=== PATIENT | female | born 1945 | race Caucasian/White ===

== ENCOUNTER 2016-10-24 03:22 | Inpatient (IN) | payer MEDICARE ==
[2016-10-24] MEDS ORDERED: Promethazine HCl 25 MG/ML VIAL ONE (03:31)
[2016-10-24] MEDS ORDERED: Ondansetron HCl/PF 4 MG/2 ML Vial IVP PRN ×3 (05:10→22:12)
[2016-10-24] MEDS ORDERED: Ondansetron ODT 4 MG TAB SL PRN (05:10)
[2016-10-24] MEDS: Sodium Chloride 0.9% 1,000 ML IV SCH ×5 (06:11→23:24)
[2016-10-24] MEDS ORDERED: Morphine Sulfate 2 MG/ML SYRINGE SLOW IVP PRN ×2 (11:26→18:33)
[2016-10-24] MEDS ORDERED: Insulin Regular 300 UNITS/3 ML VIAL SC PRN ×2 (13:10→22:35)
[2016-10-24] MEDS ORDERED: Dextrose 50% Abboject 50 ML SYRINGE IVP PRN (13:10)
[2016-10-24] MEDS ORDERED: Dextrose 5% in Water 1,000 ML IV PRN ×2 (13:10→22:35)
--- NOTE | 2016-10-24 15:27 | HP ---
DATE OF ADMISSION: 10/24/2016 CHIEF COMPLAINT: Abdominal pain, nausea, and vomiting. HISTORY OF PRESENT ILLNESS: Patient is a 71-year-old obese white female. She gives a history of a colon perforation in the (sounds like diverticular perforation), for which she underwent left hemicolectomy. She subsequently has had at least three bowel obstructions. First two of these were treated nonoperatively, but she is required at least one exploratory laparotomy for lysis of adhesi ons. She has also had repair of a ventral and incisional hernia with mesh and subsequently had prob lems with mesh exposure and infection and required another laparotomy for mesh removal. She has had a hernia since her most recent surgery and she does not recall when this was. She developed abdominal pain with nausea and vomiting about 24 hours ago. She had several episodes of vomiting. She presented to the emergency room in [place], late last night. CT scan was obtaine d that revealing findings consistent with small-bowel obstruction. She was transferred to this [facility] and admitted to my service. Nasogastric tube was placed. I am uncertain what volume of the contents was removed. She has had debbie perez out of the NG tube since been admitted to the floor. She continues to complain of abdomi nal pain. PAST MEDICAL HISTORY: 1. Hypertension. 2. Hypercholesterolemia. 3. Diabetes mellitus. 4. Morbid obesity. 5. Degenerative joint disease. PAST SURGICAL HISTORY: 1. Exploratory laparotomy for perforated diverticulitis. 2. Exploratory laparotomy for lysis of adhesions related to bowel obstruction. 3. Mesh repair of ventral incisional hernia. 4. Mesh removal for wound infection. 5. Bilateral total knee replacement performed in May of this year. MEDICATIONS: Includes Lyrica, Lasix, Actoplus metformin, TriCor, lisinopril, atorvastatin, tramadol , Myrbetriq, iron, vitamins. ALLERGIES: No known drug allergies. PERSONAL AND SOCIAL HISTORY: She is , although her is not present at bedside current ly. She has 3 children. She has lived in [place] for the past 3 weeks and moved here just recentl y from a town near [place]. She denies tobacco or alcohol use. She does not have a primary care physician locally yet. REVIEW OF SYSTEMS: Ten-system review is otherwise negative. She denies any cardiac or pulmonary pr oblems. She is uncertain when her last bowel movement was. FAMILY HISTORY: Noncontributory. PHYSICAL EXAMINATION: VITAL SIGNS: Temperature is 98.3, pulse is between 89 and 101, blood pressure 144/82. GENERAL: She is a well-developed, well-nourished, obese white female resting in bed in moderate dis tress. She notes diffuse discomfort within her abdomen, although she does not appear to be in sever e pain as I am conversing with her. She converses clearly. HEAD, EYES, EARS, NOSE, AND THROAT: Unremarkable. NECK: Supple. LUNGS: Clear to auscultation. CARDIAC: Regular rate and rhythm without murmur. ABDOMEN: Obese. There is palpable ventral hernia at the upper end of a midline abdominal incision. She has diffuse discomfort and is uncomfortable for me to palpate. She does have some tympanitic bowel sounds present. RECTAL: Deferred at this time. EXTREMITIES: Unremarkable. LABORATORY DATA: CBC obtained at about midnight reveals white blood cell count of 10 with an hemogl obin of 11.8 and left shift. Chemistry profile reveals CO2 level slightly low at 22. Electrolytes are otherwise normal. Glucose is slightly elevated at 142 and liver function tests were unremarkabl e. ASSESSMENT: Patient with small-bowel obstruction. Since she has minimal out her NG tube and persis tent discomfort, I would recommend exploratory laparotomy, as this does not appear to be improving w ith conservative management. There is certainly a risk for a closed loop obstruction or a volvulus as a source of her problem. I have discussed the operation in detail with the patient as well as po tential risks. She understands and agrees to proceed with surgery at this time.
[2016-10-24] MEDS ORDERED: ceFOXitin 1 GM VIAL ONE (16:02)
[2016-10-24] MEDS ORDERED: Sodium Chloride 0.9% 100 ML ONE ×2 (16:03→22:25)
[2016-10-24] MEDS ORDERED: Morphine Sulfate 2 MG/ML SYRINGE ONE (16:03)
[2016-10-24] MEDS ORDERED: Moxifloxacin 0.5% Opth Drop 3 ML BOT ONE (16:03)
[2016-10-24] MEDS ORDERED: Bupivacaine/Epinephrine 0.25% 30 ML VIAL ONE (16:20)
[2016-10-24] MEDS ORDERED: Fentanyl 100 MCG/2 ML VIAL ONE (16:34)
[2016-10-24] MEDS ORDERED: PHENYLEPHRINE-NS 100 MCG/ML 10 ML SYRINGE ONE (17:16)
[2016-10-24] MEDS ORDERED: ePHEDrine/0.9% NaCl/PF SYRINGE 50 mg/10 ml ONE (17:16)
[2016-10-24] MEDS ORDERED: Propofol 200 MG/20 ML VIAL ONE (17:16)
[2016-10-24] MEDS ORDERED: Ondansetron HCl/PF 4 MG/2 ML Vial ONE (17:16)
[2016-10-24] MEDS ORDERED: Lidocaine 2% PF 10 ML AMP (For Epidural Use) ONE (17:16)
[2016-10-24] MEDS ORDERED: Glycopyrrolate 0.2 MG/ML 5 ML SYRINGE ONE (17:16)
[2016-10-24] MEDS ORDERED: Succinylcholine Chloride 20 MG/ML 10 ml SYRINGE FS ONE (17:16)
[2016-10-24] MEDS ORDERED: Albumin 5% 500 ML ONE ×2 (17:33→19:55)
[2016-10-24] MEDS ORDERED: Meperidine HCl/PF 25 MG/ML VIAL SLOW IVP PRN (18:33)
[2016-10-24] MEDS ORDERED: Promethazine HCl 25 MG/ML VIAL SLOW IVP PRN (18:33)
[2016-10-24] MEDS ORDERED: Ketorolac Tromethamine 30 MG/ML VIAL IVP PRN (18:33)
[2016-10-24] MEDS ORDERED: Promethazine HCl 25 MG/ML VIAL IM PRN ×3 (18:33→22:35)
[2016-10-24] MEDS ORDERED: HYDROmorphone 2 MG/ML VIAL SLOW IVP PRN (18:33)
[2016-10-24] MEDS ORDERED: Naloxone HCl 0.4 mg/ml Vial IV PRN (22:12)
[2016-10-24] MEDS ORDERED: diphenhydrAMINE HCl 50 MG/ML 1 ML VIAL IM PRN (22:12)
[2016-10-24] MEDS ORDERED: Fentanyl 5000 MCG/250 ML CADD IVPB PRN (22:12)
[2016-10-24] MEDS ORDERED: Zolpidem Tartrate 5 MG TAB PO PRN (22:12)
[2016-10-24] MEDS ORDERED: diphenhydrAMINE HCl 25 MG CAP PO PRN (22:12)
[2016-10-24] MEDS ORDERED: Communication Order-Pharmacy FS SCH (22:15)
[2016-10-24] MEDS ORDERED: Piperacillin/Tazobactam 3.375 GM VIAL ONE (22:17)
[2016-10-24] MEDS ORDERED: Fentanyl 20 MCG/ML 250 ML ONE (22:20)
[2016-10-24] MEDS ORDERED: Dextrose 50% Abboject 50 ML SYRINGE SLOW IVP PRN (22:35)
[2016-10-24] MEDS: Piperacillin/Tazobactam 3.375 GM in Sodium Chloride 0.9% 100 ML IVPB SCH (23:25)
[2016-10-24] MEDS: Famotidine 20 MG TAB PO SCH (23:43)
[2016-10-25] MEDS: Acetaminophen 1,000 MG in Premix Bag 1 BAG IVPB SCH ×4 (00:45→18:23)
[2016-10-25] MEDS: Ketorolac Tromethamine 30 MG/ML VIAL IVP SCH ×2 (00:46→05:58)
[2016-10-25] MEDS: Famotidine/PF 20 mg/2ml Vial SLOW IVP SCH ×3 (01:03→21:37)
[2016-10-25] MEDS: Piperacillin/Tazobactam 3.375 GM in Sodium Chloride 0.9% 100 ML IVPB SCH ×4 (03:27→21:39)
[2016-10-25 04:17] LABS: Anion Gap 12 mmol/L (10-20); BUN (Urea Nitrogen) 26 mg/dL (9.8-20.1); Calc. Creatinine Clearance 73 mL/min (70-130); Carbon Dioxide 20 mmol/L (23-31); Chloride 114 mmol/L (98-107); Estimated GFR-MDRD 43
[2016-10-25 04:25] LABS: Band 21 % (5-11); Hematocrit 29.1 % (36.0-47.0); Neutrophil 66 % (42-75); Red Blood Cell (RBC) Count 2.98 mill/uL (4.20-5.40); White Blood Cell (WBC) Count 2.2 thou/uL (4.8-10.8)
[2016-10-25] MEDS: Enoxaparin Sodium 40 MG/0.4 ML SYRINGE SC SCH (05:57)
[2016-10-25] MEDS: Sodium Chloride 0.9% 1,000 ML IV SCH ×3 (05:59→09:32)
[2016-10-25] MEDS: Famotidine 20 MG TAB PO SCH ×2 (08:38→21:37)
[2016-10-25] MEDS ORDERED: Sodium Chloride 0.45% 1,000 ML IV SCH (09:30)
--- NOTE | 2016-10-25 09:58 | CON ---
DATE OF SERVICE: 10/25/2016 SERVICE: Pulmonary Medicine. REASON FOR CONSULTATION: ICU patient. HISTORY OF PRESENT ILLNESS: Patient is a 71-year-old white female with past medical history signifi cant for abdominal issues. She presented to the hospital with 3-day history of nausea and vomiting. She had no bowel movements. She also was passing no gas. In the Emergency Department, she had fi ndings consistent with a small-bowel obstruction. This was confirmed and ultimately, she was taken back to the operating room overnight. She got tucked into the ICU because of marginal blood pressur es. She currently denies nausea or vomiting. She has had no significant output from the NG tube. She is yet to start eating. Her pain is under adequate control and she will only use p.r.n. fentany l on three occasions overnight with her CARE REP. PAST MEDICAL HISTORY: 1. Hypertension. 2. Dyslipidemia. 3. Type 2 diabetes mellitus. 4. Morbid obesity. 5. Degenerative joint disease. PAST SURGICAL HISTORY: 1. Exploratory laparotomy for perforated diverticulitis. 2. Exploratory laparotomy for lysis of adhesions, related to bowel obstruction x2. 3. Mesh repair of ventral incisional hernia. 4. Mesh removal for wound infection. 5. Bilateral total knee replacement, 05/2016. ALLERGIES: No known drug allergies. MEDICATIONS: List of her inpatient medications was reviewed. Multiple updates were made at this ti wv. FAMILY HISTORY: Noncontributory. SOCIAL HISTORY: She is and has 3 children. She lives in [place] for the past 3 weeks and came here recently from [place]. She denied any alcohol, tobacco or illicit drug use. She has n o exposures to chemicals, dust asbestos or tuberculosis. REVIEW OF SYSTEMS: General, head, ears, eyes, nose, throat, cardiovascular, respiratory, GI, , mu sculoskeletal, neurologic, and skin is negative except as mentioned in the HPI. PHYSICAL EXAMINATION: VITAL SIGNS: Afebrile, pulse 102, blood pressure 111/48, respirations 28, saturation 98% on room ai r. GENERAL: The patient is awake, alert, in no apparent distress. LUNGS: Excellent air entry. I do not appreciate prolonged expiratory phase, wheezing, rhonchi or c rackles. HEART: Tachycardic. Regular. ABDOMEN: Soft. Tenderness to palpation is present throughout. There is no rebound or guarding pre sently. Her bowel sounds are hypoactive. GENITOURINARY: Quick catheter in place. NEUROLOGIC: Grossly nonfocal. LABORATORY DATA: WBC 2.2, hemoglobin 9.7, and platelets 238,000. Band count has increased to 21%. Creatinine is up trending to 1.23, BUN 26. Potassium 3.2. Basic metabolic profile is otherwise un remarkable. Urinalysis is unremarkable. Peritoneal fluid is growing gram negative carlos. Urine stra ight catheter was growing E. coli. ASSESSMENT: 1. Severe sepsis. 2. Gross peritonitis. 3. Urinary tract infection. 4. Small bowel obstruction, status post exploratory laparotomy and excision of small portion of the bowel. PLAN: Will continue empiric antibiotics for the time being, which cover most gut raji with Zosyn. I will give her 2 liters of fluid. If this perks up her blood pressure and she starts making urine output, she will be a candidate for transition out of the ICU to the regular floor. Pulmonary or C ritical Care will continue to follow for the next 1-2 days if she remains in this location.
[2016-10-25] MEDS: Potassium Chloride 20 MEQ in Lactated Ringer's 1,000 ML IVPB SCH ×2 (11:01→21:39)
--- NOTE | 2016-10-25 14:04 | PRG ---
DATE OF SERVICE: 10/25/2016 HISTORY OF PRESENT ILLNESS: Ms. Walton is postoperative day #1 from a lengthy exploratory laparotom y and treatment of a bowel obstruction. She unfortunately had compromised bowel that was very diste nded, chronically obstructed, and severely adhesed. Attempts at mobilizing the bowel away from her right lateral abdomen (where she had a prior colectomy) resulting in several enterotomies with devas cularization of bowel. I had resected close to 150 cm of injured small bowel. Nasogastric tube re jamie in place. She has been in the ICU for close observation. She complains of appropriate abdominal pain. She is apparently not doing very much for herself yet. PHYSICAL EXAMINATION: VITAL SIGNS: She has been afebrile, pulse is in the 100s, ranging from 101 up to 111. Blood pressu re is 116/49. She has received albumin boluses overnight and IV fluid boluses today. Her urine out put overnight was 205 mL. She currently seems to be urinating about 30-50 mL per hour. LUNGS: Clear to auscultation. CARDIAC: Regular rate and rhythm. ABDOMEN: Obese and appropriately diffusely tender. Dressing is still intact. Drain is in place an d is draining serosanguineous fluid from her subcutaneous space. There are no bowel sounds audible. LABORATORY STUDIES: Her CBC reveals white blood cell count of 2.2 with hemoglobin of 9.7 and platel et count of 238. Her electrolytes revealed that she has hypokalemia with potassium of 3.2. Her CO2 level is low at 20, BUN and creatinine are both slightly elevated at 26 and 1.23. ASSESSMENT: The patient who is overall doing well following a lengthy surgery for dense adhesive di sease. She also had numerous incisional hernias in her midline incision and I repaired her fascia a s well as I could without mesh. PLAN: For now, I would continue nasogastric tube. IV fluids will be optimized. I believe she woul d be better suited to treatment with lactated Ringer's with potassium to correct her hypokalemia and her acidosis. We will consult physical therapy for progressive mobilization. She will continue on IV antibiotics, receiving Zosyn. I would recommend keeping her here in the Intensive Care Unit for at least 1 more day and if all seems to be stable tomorrow, then we could probably transition her t o the floor tomorrow.
--- NOTE | 2016-10-25 14:12 | RAD ---
SINGLE VIEW OF THE CHEST: COMPARISON: None. HISTORY: Central line placement. FINDINGS: A single view of the chest shows a normal-size cardiomediastinal silhouette. There is a left subcla vian central venous catheter with its tip in the superior vena cava. An NG tube is seen in the stom ach. There is no evidence of consolidation, mass, pneumothorax, or pleural effusion. IMPRESSION: No evidence of acute cardiopulmonary disease. POS: [facility]
[2016-10-26] MEDS: Ketorolac Tromethamine 30 MG/ML VIAL IVP SCH ×4 (00:48→17:00)
[2016-10-26] MEDS: Acetaminophen 1,000 MG in Premix Bag 1 BAG IVPB SCH ×4 (00:49→17:00)
[2016-10-26] MEDS: Piperacillin/Tazobactam 3.375 GM in Sodium Chloride 0.9% 100 ML IVPB SCH ×2 (03:54→09:24)
[2016-10-26 04:44] LABS: Anion Gap 13 mmol/L (10-20); BUN (Urea Nitrogen) 27 mg/dL (9.8-20.1); Calc. Creatinine Clearance 75 mL/min (70-130); Calcium 8.3 mg/dL (7.8-10.44); Carbon Dioxide 20 mmol/L (23-31); Chloride 117 mmol/L (98-107); Estimated GFR-MDRD 49
[2016-10-26 05:04] LABS: Band 42 % (5-11); Hematocrit 26.5 % (36.0-47.0); Neutrophil 42 % (42-75); Red Blood Cell (RBC) Count 2.67 mill/uL (4.20-5.40); White Blood Cell (WBC) Count 10.2 thou/uL (4.8-10.8)
[2016-10-26] MEDS: Enoxaparin Sodium 40 MG/0.4 ML SYRINGE SC SCH (06:21)
[2016-10-26] MEDS: Potassium Chloride 20 MEQ in Lactated Ringer's 1,000 ML IVPB SCH (06:47)
--- NOTE | 2016-10-26 08:54 | RAD ---
SINGLE VIEW OF THE CHEST: COMPARISON: 10/24/16. HISTORY: Bandemia status post laparotomy. FINDINGS: A single view of the chest shows a normal-size cardiomediastinal silhouette. The central venous cat heter is unchanged in position. The NG tube is unchanged in position. There is no evidence of cons olidation, mass, or pleural effusion. IMPRESSION: No evidence of acute cardiopulmonary disease. POS: [facility]
[2016-10-26] MEDS: Famotidine/PF 20 mg/2ml Vial SLOW IVP SCH ×2 (09:24→22:33)
[2016-10-26] MEDS: Famotidine 20 MG TAB PO SCH ×2 (09:25→23:15)
[2016-10-26] MEDS: Dextrose 5% in Water 1,000 ML IV SCH (09:26)
--- NOTE | 2016-10-26 12:03 | PRG ---
DATE OF SERVICE: 10/26/2016 SERVICE: Pulmonary Medicine. INTERVAL HISTORY: The patient is doing fine from a cardiovascular and respiratory standpoint. She indicates having significant abdominal discomfort. She wanted to get out of bed into a chair. When she got into chair, she immediately wanted to get back because she feels too weak to be in the andrez r. That being said, she looks fairly strong to me. She denies any current nausea, vomiting, or rigoberto rrhea. PHYSICAL EXAMINATION: VITAL SIGNS: Afebrile, pulse 120, blood pressure 155/72, respirations 24, saturation 99% on room ai r. GENERAL: Patient is awake, alert, no apparent distress. LUNGS: Excellent air entry. There are no dependent crackles, prolonged expiratory phase, wheezing or rhonchi. HEART: Normal rate, regular. ABDOMEN: Soft, nontender, nondistended. Bowel sounds positive. MUSCULOSKELETAL: No cyanosis or clubbing. There is no pitting in the bilateral lower extremities. NEUROLOGIC: Grossly nonfocal. LABORATORY DATA: WBC 10.2. She has been rebound to 42%. Platelets are normal. Hemoglobin is 8.5. Creatinine down trending to 1.09. Sodium is increasing to 143, chloride 117. Basic metabolic pro file is otherwise unremarkable. Enterobacter is growing in the abdominal culture and this thing is pansensitive. Anaerobic cultures are currently pending. IMAGING: Chest x-ray demonstrates low lung volumes. There is a left-sided subclavian central venou s catheter in decent position. The sil angle is a little bit enlarged. Dilated loops of bowel p resent. No evidence of acute cardiopulmonary process. There are increased interstitial markings, a ccentuated by low lung volumes. There is an enteric catheter coursing below the level of the diaphr agm. ASSESSMENT: 1. Severe sepsis. 2. Gross peritonitis. 3. Urinary tract infection. 4. Small bowel obstruction, status post exploratory laparotomy and excision of small portion of sma ll bowel. 5. Hypernatremia. PLAN: We will provide the patient a little bit of free water and keep her total fluids at 120 mL pe r hour. She remains essentially normal volume actually her volume status has improved significantly over the last 24 hours. Urine output has actually started to take up touch. She is clearing her s epsis profile very nicely and I believe the increasing band count represents her body catching up wi th her infectious profile. We will keep her in the ICU for 1 additional day, so we can aggressively mobilize her. Physical therapy will work with her through the day.
[2016-10-26] MEDS: Potassium Chloride 20 MEQ in Lactated Ringer's 1,000 ML IV SCH ×2 (14:09→16:50)
[2016-10-26] MEDS: Piperacillin/Tazobactam 3.375 GM, Admixture Fee 1 EACH in Sodium Chloride 0.9% 100 ML IVPB SCH ×2 (16:49→22:34)
[2016-10-26] MEDS: Ondansetron HCl/PF 4 MG/2 ML Vial IVP PRN (19:38)
--- NOTE | 2016-10-27 00:20 | OP ---
DATE OF PROCEDURE: 10/24/2016 PREOPERATIVE DIAGNOSIS: Small bowel obstruction with persistent abdominal pain. POSTOPERATIVE DIAGNOSES: Small bowel obstruction with persistent abdominal pain with extensive dens e intra-abdominal adhesions, devitalized bowel, and densely obstructed small bowel full of impacted food contents. OPERATIONS PERFORMED: Exploratory laparotomy with small bowel resection (removing 140 cm of small i ntestine), complex incisional hernia repair, central line placement per anesthesia. SURGEON: Cristian Raza M.D. ANESTHESIA: General endotracheal. INDICATIONS: The patient is a morbidly obese 71-year-old white female. She gives a history of a la parotomy for colon resection sometime in the s. Subsequent to this, she had an incisional hernia for which she underwent an open mesh repair. Sometime after that, she had an infection which requir ed mesh removal. At some point related to this, she had a laparotomy and treatment of a bowel obstr uction. The exact time course of these operations is uncertain. She presented to the hospital at t his time with CT evidence of small-bowel obstruction with nausea and vomiting and pain. After nasog astric tube was placed, there was actually a little gastric-content aspiration. She continued to espinoza ve abdominal pain with findings worrisome for peritoneal findings. I therefore recommended proceedi ng with exploratory laparotomy. I was concerned that it could be a closed loop obstruction or volvu nik/devascularization of the bowel. DESCRIPTION OF OPERATION: Informed consent was obtained. The patient was taken to the operating ro om, where general endotracheal anesthesia was obtained with the patient in supine position. Left rincon bclavian central line was placed by Dr. James. Abdomen was prepped with ChloraPrep and draped in bull rile fashion. A midline abdominal incision was created through prior incision and dissection was ca rried down into the wound. There were numerous areas of hernias that were identified from the super ior aspect of the wound down to the inferior aspect of the wound. I carefully dissected down into t he wound, avoiding the injury to any bowel within the hernias. The fascia was elevated on both side s and careful dissection was carried out to free the anterior abdominal wall. This was quite easy o n the patient's left side. The right side; however, was found to be extraordinarily difficult. Wit h meticulous dissection, I was able to identify that she had an extended right hemicolectomy with an anastomosis to the mid transverse colon. I was able to fairly uneventfully dissected the small bow el from the ligament of Treitz about 150 cm distally. At this point, I entered an area of dense adh esions with severely dilated bowel in what I eventually found to be food contents densely impacted i nto the bowel. From the ileocolonic anastomosis, I was able to dissect the bowel about 95 centimete rs proximally into the same contents. It was densely adherent, where her right colon had previously been nonetheless that appeared to be the area of the obstruction. I attempted careful dissection u sing a combination of sharp and blunt dissection. Unfortunately, during the course of dissecting th e right side of her abdomen, I created at least 4 enterotomies. I also devascularized a couple of a reas of bowel during the course of trying to mobilize this. There were numerous areas, where there was essentially no plane between loops of bowel and/or between the loops of bowel in the abdominal w all. When I eventually had mobilized the entire bowel, there was a lengthy segment that was devitalized i n several areas that would require resection and unfortunately these areas of injury to the bowel we re spread out over a long segment of bowel. I felt it was unwise to attempt 4 separate small bowel resections. I therefore, decided to resect about 140 cm of small bowel in continuity. A double sta pled anastomosis was created between the bowel proximal and distal to these areas. This was done wi th a JOHANN-75 stapler. The mesentery was taken down using the impact stapler, oversewing the areas th at were bleeding. The specimen was passed off the field. The mesenteric defect was closed with a r unning suture of 3-0 Vicryl and the anastomosis was buttressed with 3-0 silk sutures. When the enterotomies were created, a foul smelling fluid unfortunately leaked into the abdominal ca vity containing extensive food contents. These fluid contents appeared to be firm nuggets of food t hat I suspected were chewed up nuts, but I could not be certain. I inspected the remainder of the bowel contents and repaired a couple of small serosal defects, but there were certainly no other areas of enterotomy. I then irrigated the abdomen with 8 liters of wa rm saline. I had cleared all fluid contents away from the anterior abdominal wall several times and changed my gloves twice during the course of this procedure to try to minimize the chance of ongoin g recontamination. I then mobilized the fascia from the multiple hernias for several centimeters in each direction. I cleansed the abdominal wall one last time, then removed all instruments from the field, and myself and my engineer third assistant changed gowns and gloves and redraped the abdomen. I placed two sheets of Seprafilm within the abdominal cavity and then closed the fascia with the series of inter rupted sutures of #1 Prolene placed in a [id number] fashion. I used the Pulsavac to irrigate t he subcutaneous space and the skin and surrounding anterior abdominal wall with 3 liters of saline. A #19 round fluted drain was placed within the wound and brought out laterally and inferiorly and s ecured with 3-0 nylon suture. Subcutaneous tissue was approximated with running suture of 3-0 Vicry l and skin edges approximated with skin nehemias. Dry gauze dressing was placed externally. There was about 265 cm of small bowel left at the end of the operation as well as the colon from the mid transverse colon distally. This operation had taken about 4-1/2 hours to complete because of t he severity of the adhesions (which took over 2 hours before I was able to eviscerate the bowel (and the extent of the hernia disease which required significant time for repair). Although she was in stable condition, decided to take her to the intensive care unit postoperatively.
[2016-10-27] MEDS: Acetaminophen 1,000 MG in Premix Bag 1 BAG IVPB SCH (00:39)
[2016-10-27] MEDS: Ketorolac Tromethamine 30 MG/ML VIAL IVP SCH ×4 (00:40→18:39)
[2016-10-27] MEDS: Piperacillin/Tazobactam 3.375 GM, Admixture Fee 1 EACH in Sodium Chloride 0.9% 100 ML IVPB SCH ×4 (05:42→21:32)
[2016-10-27] MEDS: Dextrose 5% in Water 1,000 ML IV SCH (05:44)
[2016-10-27] MEDS: Enoxaparin Sodium 40 MG/0.4 ML SYRINGE SC SCH (05:45)
[2016-10-27] MEDS ORDERED: HYDROcodone/Acetaminophen 7.5/325 mg Tablet PO PRN (06:00)
[2016-10-27 09:09] LABS: Hematocrit 25.6 % (36.0-47.0); Red Blood Cell (RBC) Count 2.61 mill/uL (4.20-5.40); White Blood Cell (WBC) Count 11.4 thou/uL (4.8-10.8)
[2016-10-27 09:33] LABS: Anion Gap 12 mmol/L (10-20); BUN (Urea Nitrogen) 30 mg/dL (9.8-20.1); Calc. Creatinine Clearance 89 mL/min (70-130); Calcium 8.8 mg/dL (7.8-10.44); Carbon Dioxide 22 mmol/L (23-31); Chloride 115 mmol/L (98-107); Estimated GFR-MDRD 58
[2016-10-27 09:44] LABS: Band 32 % (5-11); Neutrophil 49 % (42-75); Polychromasia SLIGHT = 2-3 cells (100X) (0-2/hpf); Vacuoles SLIGHT
[2016-10-27] MEDS: Famotidine/PF 20 mg/2ml Vial SLOW IVP SCH ×2 (09:46→20:59)
[2016-10-27] MEDS: Famotidine 20 MG TAB PO SCH ×2 (09:47→20:53)
[2016-10-27] MEDS: Potassium Chloride 20 MEQ in Lactated Ringer's 1,000 ML IV SCH (15:17)
--- NOTE | 2016-10-27 22:52 | PRG ---
DATE OF SERVICE: 10/27/2016 SERVICE: Pulmonary Medicine. INTERVAL HISTORY: The patient is doing great from a respiratory standpoint. She continues to have persistent abdominal discomfort. She did not sleep at all last night. This morning, she is a littl e bit more lethargic, but wakes up and is alert. PHYSICAL EXAMINATION: VITAL SIGNS: Afebrile, pulse 101, blood pressure 143/70, respirations 26, saturation 99% on 2 liter s nasal cannula. HEENT: Normocephalic, atraumatic. Sclerae are white, conjunctivae pink. Oral and nasal mucosa is moist without lesions. LUNGS: Decreased air entry with no prolonged expiratory phase. I do not appreciate any wheezing. No crackles are present. HEART: Normal rate, regular. ABDOMEN: Soft. Tender to palpation throughout with a little bit of rebound. No guarding. Bowel s ounds are hypoactive. GENITOURINARY: Quick catheter in place. NEUROLOGIC: Grossly nonfocal. LABORATORY DATA: WBC 11.4, hemoglobin 8.2 and stable. Platelets 242,000. Band count is decreasing to 32%. Basic metabolic profile is essentially unremarkable. The sodium and chloride are both gen tly improving. Bicarbonate is also improved. Bacterial culture from the peritoneal fluid is growin g multiple organisms including Clostridium perfringens, nonhemolytic Streptococcus, lactobacillus, E nterobacter aerogenes: ASSESSMENT: 1. Severe sepsis. 2. Gross peritonitis, improving. 3. Urinary tract infection. 4. Small-bowel obstruction, status post exploratory laparotomy and excision small portion of small bowel. 5. Hypernatremia, improving. PLAN: We will continue our fluid concoction. The patient will remain in the ICU until she demonstr ates increased mobility. We will continue working to get her into a chair 2-3 times on a daily basi s. I will start a very small dose of Haldol tonight to see if this helps to reorient her. Pulmonar y will continue to follow while she remains in the ICU.
[2016-10-28] MEDS: Ketorolac Tromethamine 30 MG/ML VIAL IVP SCH ×5 (00:24→23:22)
[2016-10-28 03:57] LABS: Anion Gap 11 mmol/L (10-20); BUN (Urea Nitrogen) 30 mg/dL (9.8-20.1); Calc. Creatinine Clearance 94 mL/min (70-130); Calcium 8.7 mg/dL (7.8-10.44); Carbon Dioxide 24 mmol/L (23-31); Chloride 113 mmol/L (98-107); Estimated GFR-MDRD 59; Magnesium 1.4 mg/dL (1.6-2.6); Phosphorus 2.7 mg/dL (2.3-4.7)
[2016-10-28 04:14] LABS: Band 11 % (5-11); Hematocrit 24.2 % (36.0-47.0); Mean Platelet Volume 7.8 fL (7.4-10.4); Neutrophil 74 % (42-75); Red Blood Cell (RBC) Count 2.46 mill/uL (4.20-5.40)
[2016-10-28] MEDS: Piperacillin/Tazobactam 3.375 GM, Admixture Fee 1 EACH in Sodium Chloride 0.9% 100 ML IVPB SCH ×4 (04:39→21:02)
[2016-10-28] MEDS: Enoxaparin Sodium 40 MG/0.4 ML SYRINGE SC SCH (05:34)
[2016-10-28] MEDS: Potassium Chloride 20 MEQ in Lactated Ringer's 1,000 ML IV SCH (08:23)
[2016-10-28] MEDS: Famotidine/PF 20 mg/2ml Vial SLOW IVP SCH ×2 (10:04→21:02)
[2016-10-28] MEDS: Famotidine 20 MG TAB PO SCH ×2 (10:04→21:02)
--- NOTE | 2016-10-28 12:38 | PRG ---
DATE OF SERVICE: 10/28/2016 SUBEJCTIVE: Ms. Walton is sitting up in a chair at bedside. She is complaining about having to sit up. I have explained to her it is important for her recovery. OBJECTIVE: VITAL SIGNS: Heart rate 76, blood pressure 137/59. LUNGS: Clear. HEART: Regular rhythm. ABDOMEN: Slightly distended, minimally tender. LABORATORY DATA: White count 10.9, hemoglobin 7.7, platelets 213,000. Sodium 145, potassium 3.2, c hloride 113, bicarbonate 24, BUN 30, creatinine 0.93. Intake and output is positive 621. IMPRESSION: 1. Status post peritonitis with a laparotomy requiring incision of small portion of the small bowel . 2. Electrolyte abnormality, stable. 3. Clinical sepsis, improved. 4. Status post complex incisional hernia repair. 5. Obesity. 6. Deconditioning. 7. History of hypertension. 8. History of lipid disorder. 9. Diabetes. 10. Degenerative arthritis. 11. History of multiple abdominal procedures in the past. PLAN: Continue supportive care. She may be a candidate to either moved to the Step down unit to rincon rgical floor. She remains in sinus rhythm.
[2016-10-28] MEDS ORDERED: Potassium Chloride 40 MEQ in Premix Bag 1 BAG IVPB SCH (13:15)
--- NOTE | 2016-10-28 14:27 | PRG ---
DATE OF SERVICE: 10/28/2016 SUBJECTIVE: Ms. Walton states that she is feeling okay today. Her pain is tolerable. The nurses h ave been getting her up out of bed. She has not passed any gas, but denies any nausea. OBJECTIVE: Vital signs are stable. She has not had any fevers. Her heart rate has been 70s to 90s and her blood pressure has been mildly elevated. She is still confused, but according to her husba nd is much more lucid than she has been in the past couple of days. Her NG tube has decreasing drai nage as does her SHAUN. Her abdomen is soft and nondistended, but I cannot appreciate any significant bowel sounds. LABORATORY DATA: Her white count is normal today at 10, hematocrit is low at 24.2, but she denies a ny lightheadedness or shortness of breath. Potassium is low at 3.2 and magnesium is low at 1.4, but electrolytes were otherwise unremarkable. BUN and creatinine are stable at 30 and 0.93. ASSESSMENT AND PLAN: Status post small-bowel obstruction with lysis of adhesions and small bowel re section. Postoperatively, she had some significant bradycardia, but this has resolved. She is stil l confused and requiring quite a bit of assistance. The education liaison has recommended moving her ou t of the unit, but to the step-down level rather than to the surgical floor and I agree with this de cision. I am going to leave the NG tube for now since her bowel sounds are still rare and she has n ot passed flatus, but hopefully she gets up and moves around more, we will be able to get this out.
[2016-10-28] MEDS: Morphine Sulfate 2 MG/ML SYRINGE SLOW IVP PRN (15:34)
[2016-10-29] MEDS: Piperacillin/Tazobactam 3.375 GM, Admixture Fee 1 EACH in Sodium Chloride 0.9% 100 ML IVPB SCH ×4 (03:31→23:02)
[2016-10-29] MEDS: Potassium Chloride 20 MEQ in Lactated Ringer's 1,000 ML IV SCH (03:32)
[2016-10-29 04:55] LABS: Anion Gap 15 mmol/L (10-20); BUN (Urea Nitrogen) 30 mg/dL (9.8-20.1); Calc. Creatinine Clearance 101 mL/min (70-130); Calcium 9.2 mg/dL (7.8-10.44); Carbon Dioxide 22 mmol/L (23-31); Chloride 115 mmol/L (98-107); Estimated GFR-MDRD 59; Phosphorus 2.2 mg/dL (2.3-4.7)
[2016-10-29] MEDS: Ketorolac Tromethamine 30 MG/ML VIAL IVP SCH ×3 (05:08→18:32)
[2016-10-29] MEDS: Enoxaparin Sodium 40 MG/0.4 ML SYRINGE SC SCH (05:08)
[2016-10-29 05:29] LABS: Band 3 % (5-11); Hematocrit 23.8 % (36.0-47.0); Mean Platelet Volume 7.9 fL (7.4-10.4); Metamyelocyte 2 % (0-0); Neutrophil 70 % (42-75); Red Blood Cell (RBC) Count 2.45 mill/uL (4.20-5.40); White Blood Cell (WBC) Count 7.6 thou/uL (4.8-10.8)
[2016-10-29] MEDS: Morphine Sulfate 2 MG/ML SYRINGE SLOW IVP PRN ×2 (06:20→16:06)
[2016-10-29] MEDS: Famotidine 20 MG TAB PO SCH ×2 (08:45→20:09)
[2016-10-29] MEDS: Famotidine/PF 20 mg/2ml Vial SLOW IVP SCH ×2 (08:46→20:08)
[2016-10-29] MEDS: Ondansetron HCl/PF 4 MG/2 ML Vial IVP PRN (08:46)
--- NOTE | 2016-10-29 11:28 | RAD ---
ABDOMEN 2 VIEWS: HISTORY: Abdominal pain. Small bowel restriction. FINDINGS: Skin nehemias and radiopaque drain overlie the left abdomen. No differential air fluid levels are ap parent. No free intraperitoneal gas is visible on the portable upright exam. Atelectasis projects over the left lung base. There are prominent degenerative changes of the lumbar spine. IMPRESSION: Postoperative changes of the abdomen. No significant abnormalities are demonstrated. POS: [facility]
--- NOTE | 2016-10-29 14:55 | PRG ---
DATE OF SERVICE: 10/29/2016 SUBJECTIVE: Nia Walton is walking in the hallway. She is crying the entire time. She is walking . She is crying in the chair. She cried all night long apparently. She says that she absolutely d oes not want exercise. OBJECTIVE: VITAL SIGNS: She is afebrile, heart rate is 84, respiratory 20, oximetry is 95, and blood pressure 132/58. LUNGS: Clear. HEART: Regular rhythm. ABDOMEN: Soft. Abdominal film is ordered this morning showing no significant abnormalities. IMPRESSION: 1. Status post laparotomy for peritonitis. 2. Poor tolerance of any physical activity. 3. Clinical sepsis, improved. 4. History of multiple abdominal procedures in the past. 5. Hypertension. 6. Lipid disorder. 7. Diabetes. 8. Osteoarthritis. 9. History of multiple abdominal procedures. PLAN: Continue supportive care. I suspect once she is stable enough to get to a halfway fa cility; she will decline activity and become bedridden unless there is significant improvement in he r willingness to cooperate with exercise.
[2016-10-29] MEDS: diphenhydrAMINE HCl 50 MG/ML 1 ML VIAL IVP PRN (18:33)
[2016-10-29 20:05] LABS: Hematocrit 21.8 % (36.0-47.0)
[2016-10-30] MEDS: diphenhydrAMINE HCl 50 MG/ML 1 ML VIAL IVP PRN (00:15)
[2016-10-30] MEDS: Ketorolac Tromethamine 30 MG/ML VIAL IVP SCH (00:15)
[2016-10-30] MEDS: Potassium Chloride 20 MEQ in Lactated Ringer's 1,000 ML IV SCH ×2 (01:12→04:06)
[2016-10-30] MEDS: Piperacillin/Tazobactam 3.375 GM, Admixture Fee 1 EACH in Sodium Chloride 0.9% 100 ML IVPB SCH ×4 (04:06→22:13)
[2016-10-30 04:50] LABS: PTT 40.7 SEC (22.9-36.1)
[2016-10-30 05:12] LABS: Anion Gap 14 mmol/L (10-20); BUN (Urea Nitrogen) 29 mg/dL (9.8-20.1); Calc. Creatinine Clearance 107 mL/min (70-130); Calcium 8.8 mg/dL (7.8-10.44); Carbon Dioxide 26 mmol/L (23-31); Chloride 115 mmol/L (98-107); Estimated GFR-MDRD 62; Magnesium 1.6 mg/dL (1.6-2.6); Phosphorus 2.4 mg/dL (2.3-4.7)
[2016-10-30 06:41] LABS: Hematocrit 21.8 % (36.0-47.0); Mean Platelet Volume 8.4 fL (7.4-10.4); Red Blood Cell (RBC) Count 2.28 mill/uL (4.20-5.40); White Blood Cell (WBC) Count 9.6 thou/uL (4.8-10.8)
[2016-10-30 07:43] LABS: Band 13 % (5-11); Metamyelocyte 4 % (0-0); Myelocyte 9 % (0-0); Neutrophil 54 % (42-75); Nucleated RBC 1 % (0); Polychromasia MODERATE = 3-4 cells (100X) (0-2/hpf); Reactive Lymphocytes 3 % (0-10); Toxic Granulation SLIGHT
[2016-10-30] MEDS: Famotidine 20 MG TAB PO SCH (08:36)
[2016-10-30] MEDS: Famotidine/PF 20 mg/2ml Vial SLOW IVP SCH (08:36)
[2016-10-30] MEDS: Morphine Sulfate 2 MG/ML SYRINGE SLOW IVP PRN ×2 (09:26→15:29)
--- NOTE | 2016-10-30 12:38 | PRG ---
DATE OF SERVICE: 10/30/2016 SUBJECTIVE: The patient is complaining of some abdominal pain at surgical site , but is otherwise doing okay. PHYSICAL EXAMINATION: VITAL SIGNS: Temperature 98.2, pulse 89, respirations 18, O2 sat 95%, blood pressure 146/69. HEENT: Unremarkable. NECK: No JVD. CHEST: Clear. CARDIAC: S1 and S2 regular. ABDOMEN: Surgical site looks good. She has a drain with serosanguineous fluid. EXTREMITIES: No clubbing, cyanosis, or edema. LABORATORY DATA: White blood cell count 9.6, hemoglobin 7.1, hematocrit 21.8, platelet count 201. INR 1.5. Sodium 151, potassium 3.9, chloride 115, CO2 26, BUN 29, creatinine 0.8, glucose 139. ASSESSMENT: 1. Status post laparotomy for peritonitis, small-bowel obstruction. 2. Severe deconditioning. 3. Anemia. 4. Hypernatremia. 5. Diabetes mellitus. RECOMMENDATIONS: Continue IV antibiotics. PLAN: Discontinue Lactated Ringer's and start more hypotonic solution. Following with you. MTDD
[2016-10-30 14:28] LABS: Hematocrit 24.2 % (36.0-47.0)
[2016-10-30] MEDS: Sodium Chloride 0.45% 1,000 ML IV SCH (15:29)
[2016-10-30] MEDS ORDERED: Phytonadione 10 MG/ML AMP SC SCH (17:15)
[2016-10-30] MEDS ORDERED: Pharmacy to MANAGE TPN ELECTROLYTES IVPB PRN (17:21)
--- NOTE | 2016-10-30 17:33 | CON ---
DATE OF CONSULTATION: 10/30/2016 HISTORY OF PRESENT ILLNESS: Patient is a 71-year-old female who was admitted on for small-bowel obstruction. Histopathology of the small intestine showed ulceration and perforat ion, but no other abnormalities. Patient is unable to add to history of present illness. However, according to nursing personnel, the patient started to have some bloody nasogastric suction. Last a bdominal films were yesterday on 10/29/2016 and showed no significant abnormalities other than posto perative changes. PAST MEDICAL HISTORY: Includes hypertension, hypercholesterolemia, diabetes mellitus. PAST SURGICAL HISTORY: Includes diverticulitis, colon resection for diverticulitis, bowel obstructi on, ventral herniorrhaphy, bilateral total knee replacement. MEDICATIONS AT HOME: Include tramadol, Lyrica, metformin, multivitamin, Myrbetriq, magnesium, Zestr il, Lasix, Tricor, vitamin D, Lipitor, aspirin, and Extra Strength Tylenol. MEDICATIONS: Here in the hospital include famotidine 20 mg p.o. q.12 hours, Haldol 0.5 mg p.o. at b edtime. ALLERGIES: No known allergies. SOCIAL HISTORY, FAMILY HISTORY, AND REVIEW OF SYSTEMS: All unobtainable. PHYSICAL EXAMINATION: VITAL SIGNS: Temperature 98.2, pulse 89, respiratory rate 18, blood pressure 146/69. HEENT: Significant for nasogastric tube in place. NECK: Supple. CHEST: Clear. CARDIOVASCULAR: Regular rate and rhythm. ABDOMEN: Tender, no rebound or guarding. She has a healing surgical scar. LABORATORY DATA: Shows a sodium 151, chloride 115, BUN 29, glucose 139. White blood cell count is 9.6 with hemoglobin 7.1, hematocrit of 21.8. ASSESSMENT: 1. Bloody nasogastric aspirate - I suspect this is probably related to the patient's NG trauma. 2. Anemia - multifactorial. 3. Status post laparotomy for small-bowel obstruction. 4. Diabetes mellitus. 5. History of diverticulitis. RECOMMENDATIONS: 1. Serial H\T\H. 2. Change from famotidine to PPI. 3. Continue to monitor gastric aspirate. 4. EGD if H\T\H worsen. 5. I would consider transfusion.
--- NOTE | 2016-10-30 18:08 | RAD ---
KUB: Comparison: 10-24-16 History: NG tube placement. FINDINGS: Single view of the abdomen shows a nonspecific and nonobstructive bowel gas pattern. A NG tube is se en in the stomach. Air is seen in the transverse colon. No free air is seen on the upright examinati on. IMPRESSION: NG tube located in the stomach. POS: [facility]
--- NOTE | 2016-10-30 18:14 | CT ---
CT BRAIN WITHOUT CONTRAST: Comparison: None. History: Increase of confusion. History of dementia. Technique: Multiple contiguous axial images were obtained in a CT of the brain without contrast. FINDINGS: The brain is normal in morphology and attenuation without focal lesions or confluent areas of infarc tion. There is no evidence of hydrocephalus, intracranial hemorrhage, or extraaxial fluid collection s. The calvarium and overlying soft tissues are unremarkable. The visualized paranasal sinuses and mast oid air cells are well aerated. IMPRESSION: 1. No evidence of acute intracranial abnormality. POS: [facility]
--- NOTE | 2016-10-30 18:37 | PRG ---
SUBJECTIVE: Ms. Walton had a rough night and she started to have bloody drainage from her NG tube, attempts were made to irrigate this to clear, but it continued to be blood tinged through the night. Her Lovenox was held this morning and Gastroenterology was consulted. She has been on IV Pepcid and this was switched to Protonix. Her NG tube had 250 out total, but the nurses say that it keeps clogging and they have to irrigate it. SHAUN output is minimal at 10. Her hemoglobin and hematocrit were borderline to begin with and when she started to have bleeding, I did elect to give her a unit of blood. However, her H and H actually dropped slightly after the first unit so second one was given. After the second unit, her hemoglobin went from 7.1 to 8. Her INR was mildly elevated at 1.5. Her abdomen is soft and nondistended with hypoactive bowel sounds and incision is clean, dry, and intact. Patient is unable to tell me if she has had any flatus, but her family and nurses report that they have not noted any. ASSESSMENT: Small-bowel obstruction status post lysis of adhesions and small bowel resection, still awaiting return of GI function. Bowel rest and decompression complicated by GI bleed. This appears to be low volume, but has been somewhat persistent despite efforts to irrigate the stomach and reposition the tube. Gastroenterology has been consulted. She does have a history of ulcer disease, but this is most likely gastritis with possible contribution by NG tube irritation. I have ordered some vitamin K and we are going to follow her on H and H. I am going to keep her in the IMCU as she is little too involved to go to the surgical floor, although she has been stable. Her family is concerned about her mental status, this is most consistent with delirium and she does not have any focal neurologic deficits; however, she does have a history of stroke found on prior imaging so I have ordered a head CT. She has not fallen or had any trauma and I believe that her confusion is likely medical. AYANA
[2016-10-30 20:01] LABS: Hematocrit 19.7 % (36.0-47.0)
[2016-10-30] MEDS: HYDROcodone/Acetaminophen 7.5/325 mg Tablet PO PRN (20:47)
[2016-10-30] MEDS ORDERED: Pantoprazole 40 MG VIAL IVP SCH (21:00)
[2016-10-30] MEDS: Pantoprazole 80 MG in Sodium Chloride 0.9% 100 ML IVP SCH (21:42)
[2016-10-30] MEDS ORDERED: Fat Emulsion 250 ML, Sodium Acetate 2 mEq/ml 40 MEQ, Sodium Chloride 30 MEQ, Potassium ... IV SCH ×11 (22:00)
[2016-10-30] MEDS ORDERED: Acetaminophen 1,000 MG in Premix Bag 1 BAG IVPB PRN (22:06)
[2016-10-30] MEDS ORDERED: Acetaminophen 1,000 MG in Premix Bag 1 BAG IVPB SCH (23:59)
[2016-10-31] MEDS: Sodium Chloride 0.45% 1,000 ML IV SCH ×2 (03:29→15:22)
[2016-10-31] MEDS: Piperacillin/Tazobactam 3.375 GM, Admixture Fee 1 EACH in Sodium Chloride 0.9% 100 ML IVPB SCH ×4 (03:35→22:17)
[2016-10-31 05:20] LABS: Anion Gap 14 mmol/L (10-20); BUN (Urea Nitrogen) 37 mg/dL (9.8-20.1); Calc. Creatinine Clearance 110 mL/min (70-130); Calcium 8.4 mg/dL (7.8-10.44); Carbon Dioxide 23 mmol/L (23-31); Chloride 118 mmol/L (98-107); Estimated GFR-MDRD 63; Magnesium 1.6 mg/dL (1.6-2.6); Phosphorus 2.5 mg/dL (2.3-4.7)
[2016-10-31] MEDS: diphenhydrAMINE HCl 50 MG/ML 1 ML VIAL IVP PRN (05:47)
[2016-10-31 06:48] LABS: Hematocrit 18.9 % (36.0-47.0); Red Blood Cell (RBC) Count 1.99 mill/uL (4.20-5.40)
[2016-10-31] MEDS: Pantoprazole 80 MG in Sodium Chloride 0.9% 100 ML IVP SCH ×2 (07:53→15:34)
[2016-10-31] MEDS: HYDROcodone/Acetaminophen 7.5/325 mg Tablet PO PRN ×2 (07:53→20:33)
[2016-10-31 08:07] LABS: Band 12 % (5-11); Metamyelocyte 1 % (0-0); Myelocyte 6 % (0-0); Neutrophil 67 % (42-75); Nucleated RBC 1 % (0); Polychromasia MODERATE = 3-4 cells (100X) (0-2/hpf); Toxic Granulation SLIGHT
--- NOTE | 2016-10-31 08:57 | EKG ---
Test Reason : PREOP Blood Pressure : / mmHG Vent. Rate : 091 BPM Atrial Rate : 091 BPM P-R Int : 140 ms QRS Dur : 090 ms QT Int : 330 ms P-R-T Axes : 027 001 015 degrees QTc Int : 405 ms Normal sinus rhythm Possible Inferior infarct , age undetermined Abnormal ECG No previous ECGs available Confirmed by JOAN LOPEZ (2) on 10/31/2016 8:56:57 AM Referred By: DORI Confirmed By:JOAN LOPEZ
[2016-10-31] MEDS ORDERED: Fentanyl 100 MCG/2 ML VIAL ONE ×2 (09:42→11:05)
[2016-10-31] MEDS ORDERED: PHENYLEPHRINE-NS 100 MCG/ML 10 ML SYRINGE ONE (09:47)
[2016-10-31] MEDS ORDERED: Propofol 200 MG/20 ML VIAL ONE (09:47)
[2016-10-31] MEDS ORDERED: Lidocaine 1% PF 5 ML VIAL ONE (09:47)
[2016-10-31] MEDS ORDERED: Sodium Chloride 0.9% 10 ML ONE (10:52)
[2016-10-31] MEDS ORDERED: Promethazine HCl 25 MG/ML VIAL IM PRN (10:53)
[2016-10-31] MEDS ORDERED: Promethazine HCl 25 MG/ML VIAL SLOW IVP PRN (10:53)
[2016-10-31] MEDS ORDERED: Ondansetron HCl/PF 4 MG/2 ML Vial IVP PRN (10:53)
--- NOTE | 2016-10-31 13:58 | OP ---
DATE OF PROCEDURE: 10/31/2016 SURGEON: Dr. Edilberto Wilkinson PREOPERATIVE DIAGNOSIS: Gastrointestinal bleed. PROCEDURE: After informed consent was obtained, the patient was placed in the left lateral decubitu s position. Anesthesia was administered per the Anesthesia Department. Forward-viewing endoscope w as inserted into the esophagus under direct visualization with ease and passed to the second portion of the duodenum with ease. Second portion of the duodenum was normal. The duodenal bulb was nilton l. No red blood was seen, but there was a large amount of dark black material in the duodenum. Thi s was washed clean and no active duodenal bleeding was seen. The pylorus, antrum, body, fundus, and cardia were normal except for difficult visualization with a large clot in the fundus. This was di fficult to suction or wash clean. It was moved by a moving the patient in reverse Trendelenburg and head up. I was able to see the proximal stomach. There were several fairly good sized ulcers in t he proximal stomach, none with visible vessels. No active bleeding was seen from any of these. No biopsies were performed. The distal stomach was again visualized and was normal. ASSESSMENT: Multiple proximal gastric ulcers - none with active bleeding, no visible vessels. RECOMMENDATIONS: 1. Continuous infusion of PPI. 2. Serial H\T\H. 3. GI bleeding scan.
[2016-10-31 14:41] LABS: Hematocrit 23.7 % (36.0-47.0)
--- NOTE | 2016-10-31 16:15 | NM ---
NUCLEAR MEDICINE ABDOMINAL BLEEDING EXAMINATION: RADIOPHARMACEUTICAL: 27 mCi Technetium 99m tagged RBC IV. FINDINGS: No abnormal accumulation of radiotracer that conforms to bowel and moves with time is evident to sug gest active GI bleeding. IMPRESSION: No evidence of active gastrointestinal bleeding. POS: [facility]
--- NOTE | 2016-10-31 16:19 | PRG ---
DATE OF SERVICE: 10/31/2016 SERVICE: Pulmonary Medicine. INTERVAL HISTORY: The patient is doing okay from a respiratory standpoint. Because she started ankush pping her blood counts and had some degree of hematemesis, she went down for an EGD. There are mult iple ulcers that were identified. She also developed increasing confusion through the weekend. Thi s is consistent with delirium. Otherwise, there has been no interval change to her condition. She remains extraordinarily weak. PHYSICAL EXAMINATION: VITAL SIGNS: Afebrile, pulse 100, blood pressure 196/60, respirations 24, saturation 93% on 2 liter s nasal cannula. GENERAL: Patient is awake, alert, no apparent distress. LUNGS: Excellent air entry. There is no prolonged expiratory phase, wheezing, rhonchi or crackles. HEART: Normal rate and regular. ABDOMEN: Distended. Tender to palpation throughout. There are bowel sounds present. No rebound i s identified. No guarding. MUSCULOSKELETAL: No cyanosis or clubbing. There is no pitting in the bilateral lower extremities. GENITOURINARY: No Quick catheter. NEUROLOGIC: Grossly nonfocal. LABORATORY DATA: WBC 13.0, hemoglobin 6.6, platelets 178,000. INR 1.5. Sodium 151. Basic metabol ic profile is otherwise unremarkable. IMAGIN. CT of the brain demonstrates no acute intracranial abnormality. 2. Abdominal x-ray demonstrates NG tube located in the stomach. ASSESSMENT: 1. Severe sepsis. 2. Gross peritonitis. 3. Urinary tract infection. 4. Small-bowel obstruction, status post exploratory laparotomy and excision of small portion of the small bowel. 5. Hypernatremia, getting worse. PLAN: We will increase her free water. We will continue working on mobilizing the patient and gett ing into a chair 2-3 times on a daily basis. Pulmonary will continue to follow.
[2016-10-31 17:12] LABS: Hematocrit 22.9 % (36.0-47.0)
[2016-10-31] MEDS: Dextrose 5% in Water 1,000 ML IV SCH (18:35)
[2016-10-31 21:02] LABS: Hematocrit 24.3 % (36.0-47.0)
[2016-10-31] MEDS ORDERED: POTASSIUM CHLORIDE IV SCH ×10 (22:00)
[2016-10-31] MEDS ORDERED: SODIUM ACETATE IV SCH ×10 (22:00)
[2016-10-31] MEDS ORDERED: [UNRECOGNIZED DRUG - OTHER] IV SCH ×10 (22:00)
[2016-10-31] MEDS ORDERED: FAT EMULSION IV SCH ×10 (22:00)
[2016-11-01] MEDS: HYDROcodone/Acetaminophen 7.5/325 mg Tablet PO PRN ×4 (00:43→20:54)
[2016-11-01 00:53] LABS: Hematocrit 23.1 % (36.0-47.0)
[2016-11-01] MEDS: Pantoprazole 80 MG in Sodium Chloride 0.9% 100 ML IVP SCH ×2 (03:11→14:22)
[2016-11-01] MEDS: Piperacillin/Tazobactam 3.375 GM, Admixture Fee 1 EACH in Sodium Chloride 0.9% 100 ML IVPB SCH ×4 (03:51→22:20)
[2016-11-01] MEDS: Dextrose 5% in Water 1,000 ML IV SCH (05:45)
[2016-11-01 07:08] LABS: Hematocrit 23.7 % (36.0-47.0); Mean Platelet Volume 9.7 fL (7.4-10.4); Red Blood Cell (RBC) Count 2.49 mill/uL (4.20-5.40); White Blood Cell (WBC) Count 12.5 thou/uL (4.8-10.8)
[2016-11-01 07:19] LABS: Anion Gap 11 mmol/L (10-20); BUN (Urea Nitrogen) 31 mg/dL (9.8-20.1); Calc. Creatinine Clearance 116 mL/min (70-130); Calcium 8.5 mg/dL (7.8-10.44); Carbon Dioxide 25 mmol/L (23-31); Chloride 112 mmol/L (98-107); Estimated GFR-MDRD 68; Magnesium 1.6 mg/dL (1.6-2.6); Phosphorus 2.6 mg/dL (2.3-4.7)
[2016-11-01 09:08] LABS: Band 18 % (5-11); Metamyelocyte 2 % (0-0); Myelocyte 1 % (0-0); Neutrophil 54 % (42-75); Nucleated RBC 2 % (0); Polychromasia SLIGHT = 2-3 cells (100X) (0-2/hpf); Toxic Granulation SLIGHT
[2016-11-01 09:34] LABS: Hematocrit 24.3 % (36.0-47.0)
[2016-11-01] MEDS ORDERED: Insulin Regular 300 UNITS/3 ML VIAL SC PRN (11:00)
[2016-11-01] MEDS: Insulin Regular 300 UNITS/3 ML VIAL SC PRN ×2 (11:34→18:03)
--- NOTE | 2016-11-01 13:59 | PRG ---
DATE OF SERVICE: 11/01/2016 SUBJECTIVE: The patient is somewhat confused and adds little or nothing to history of present illne ss. She has not had any vomiting, not having any bleeding. OBJECTIVE: VITAL SIGNS: Temperature 97.9, pulse 103, respiratory rate 16, blood pressure 155/74. CHEST: Clear. CARDIOVASCULAR: Regular rate and rhythm. ABDOMEN: Soft, diffusely tender. No rebound. LABORATORY DATA: Shows hemoglobin of 8.2, hematocrit of 24.3, chloride is 112, BUN 31, creatinine 0 .83, glucose 336. ASSESSMENT: 1. Upper gastrointestinal bleed. 2. Gastric ulcers. 3. Status post laparotomy for small-bowel obstruction. 4. Diabetes mellitus. RECOMMENDATIONS: 1. Continue continuous infusion of PPI. 2. Serial H\T\H. 3. Defer oral intake to Surgery.
[2016-11-01 14:07] LABS: Hematocrit 23.2 % (36.0-47.0)
--- NOTE | 2016-11-01 14:27 | PRG ---
DATE OF SERVICE: 11/01/2016 SERVICE: Pulmonary Medicine. INTERVAL HISTORY: The patient is doing fine from cardiovascular and respiratory standpoint. She is in a chair this morning. She denies any fevers, chills, nausea, vomiting or chest discomfort. Oth erwise, she is returning to her usual state of health. One of the biggest issue that we are dealing with her is debility and desire to not move/exercise. PHYSICAL EXAMINATION: VITAL SIGNS: Afebrile with a T-max of 100.5, pulse 103, blood pressure 155/74, respirations 16, sat uration 95% on room air. GENERAL: Patient is awake, alert, in no apparent distress. LUNGS: Decent air entry. No prolonged expiratory phase, wheezing, rhonchi or crackles. HEART: Normal rate, regular. ABDOMEN: Soft, nontender, nondistended. Bowel sounds positive. MUSCULOSKELETAL: No cyanosis or clubbing. No pitting in the bilateral lower extremities. NEUROLOGIC: Grossly nonfocal. LABORATORY DATA: WBC 12.5, hemoglobin 7.7, platelets 211,000. INR 1.5. Basic metabolic profile wa s essentially unremarkable, magnesium is 1.6, and phosphorus is 2.6. ASSESSMENT: 1. Severe sepsis. 2. Gross peritonitis. 3. Urinary tract infection. 4. Small-bowel obstruction, status post exploratory laparotomy and excision of part of the small jed wel. 5. Acute blood loss anemia. PLAN: We will put the patient back on half normal saline and increase her total fluids to 150 an ho ur. Clinically, she is a little volume depleted. As such, we will provide some gentle hydration. She will continue to mobilize as much as tolerated. Pulmonary will continue to follow while she rem ains in house.
[2016-11-01] MEDS ORDERED: Magnesium 2 GM/NS 0.9% 100 ML 2 GM in Premix Bag 1 BAG IVPB SCH ×2 (14:30→15:00)
[2016-11-01] MEDS ORDERED: Magnesium Sulfate 2 GM in Sodium Chloride 0.9% 100 ML IVPB SCH (14:30)
[2016-11-01] MEDS: Dextrose 5 %-0.45 % NaCl 1,000 ML IV SCH (15:55)
[2016-11-01 17:08] LABS: Hematocrit 25.1 % (36.0-47.0)
[2016-11-01 20:50] LABS: Hematocrit 23.1 % (36.0-47.0)
[2016-11-01] MEDS ORDERED: [UNRECOGNIZED DRUG - OTHER] IV SCH ×11 (22:00)
[2016-11-01] MEDS ORDERED: POTASSIUM CHLORIDE IV SCH ×11 (22:00)
[2016-11-01] MEDS ORDERED: FAT EMULSION IV SCH ×11 (22:00)
[2016-11-01] MEDS ORDERED: SODIUM ACETATE IV SCH ×11 (22:00)
[2016-11-02] MEDS: Insulin Regular 300 UNITS/3 ML VIAL SC PRN ×2 (00:13→06:08)
[2016-11-02] MEDS: Pantoprazole 80 MG in Sodium Chloride 0.9% 100 ML IVP SCH ×3 (00:57→22:20)
[2016-11-02 01:06] LABS: Hematocrit 20.8 % (36.0-47.0)
[2016-11-02 03:26] LABS: PTT 34.8 SEC (22.9-36.1); Prothrombin Time 14.9 SEC (12.0-14.7)
[2016-11-02 03:42] LABS: ALT (SGPT) Less than 7 U/L (8-55); AST (SGOT) 11 U/L (5-34); Alkaline Phosphatase 43 U/L (40-150); Anion Gap 11 mmol/L (10-20); BUN (Urea Nitrogen) 29 mg/dL (9.8-20.1); Bilirubin, Total 0.7 mg/dL (0.2-1.2); Calc. Creatinine Clearance 125 mL/min (70-130); Calcium 8.5 mg/dL (7.8-10.44); Carbon Dioxide 23 mmol/L (23-31); Chloride 111 mmol/L (98-107); Cholesterol 94 mg/dl (< 200 Desired); Estimated GFR-MDRD 74; Globulin 2.7 g/dL (2.4-3.5); LDL Cholesterol, Calculated 36 mg/dL; Magnesium 1.8 mg/dL (1.6-2.6); Phosphorus 3.2 mg/dL (2.3-4.7)
[2016-11-02] MEDS: Piperacillin/Tazobactam 3.375 GM, Admixture Fee 1 EACH in Sodium Chloride 0.9% 100 ML IVPB SCH ×4 (04:05→20:41)
[2016-11-02] MEDS: Dextrose 5 %-0.45 % NaCl 1,000 ML IV SCH ×2 (04:05→14:15)
[2016-11-02] MEDS: HYDROcodone/Acetaminophen 7.5/325 mg Tablet PO PRN (04:18)
[2016-11-02] MEDS ORDERED: Potassium Chloride 40 MEQ in Premix Bag 1 BAG IVPB SCH (08:30)
[2016-11-02 08:40] LABS: Band 5 % (5-11); Hematocrit 22.6 % (36.0-47.0); Mean Platelet Volume 11.3 fL (7.4-10.4); Metamyelocyte 2 % (0-0); Neutrophil 69 % (42-75); Red Blood Cell (RBC) Count 2.34 mill/uL (4.20-5.40); White Blood Cell (WBC) Count 12.2 thou/uL (4.8-10.8)
[2016-11-02 10:18] LABS: Hematocrit 25.5 % (36.0-47.0)
[2016-11-02 13:38] LABS: Hematocrit 25.7 % (36.0-47.0)
--- NOTE | 2016-11-02 14:39 | PRG ---
DATE OF SERVICE: 11/02/2016 SUBJECTIVE: The patient has no new GI complaints. There is a bile looking fluid in the nasogastric tube. She has not had any bowel movements. OBJECTIVE: VITAL SIGNS: Temperature 98.1, pulse 92, respiratory rate 22 and blood pressure 170/75. CHEST: Clear. CARDIOVASCULAR: Regular rate and rhythm. ABDOMEN: Soft and nontender, without organomegaly or masses. She has a well healing surgical site. LABORATORY DATA: Shows a hemoglobin of 8.6 and hematocrit of 25.7. ASSESSMENT: 1. Gastric ulcers. 2. Gastrointestinal bleed. 3. Status post laparotomy. RECOMMENDATIONS: 1. Continue the Protonix drip. 2. Continue serial H\T\H. 3. We will follow at a distance.
[2016-11-02 17:23] LABS: Hematocrit 25.6 % (36.0-47.0)
[2016-11-02 21:14] LABS: Hematocrit 24.1 % (36.0-47.0)
[2016-11-02] MEDS: [UNRECOGNIZED DRUG - OTHER] IV SCH ×12 (21:52)
[2016-11-02] MEDS: SODIUM ACETATE IV SCH ×12 (21:52)
[2016-11-02] MEDS: FAT EMULSION IV SCH ×12 (21:52)
[2016-11-02] MEDS: POTASSIUM CHLORIDE IV SCH ×12 (21:52)
[2016-11-03] MEDS: Insulin Regular 300 UNITS/3 ML VIAL SC PRN ×4 (00:08→17:30)
[2016-11-03 02:11] LABS: Hematocrit 23.8 % (36.0-47.0)
[2016-11-03] MEDS: Piperacillin/Tazobactam 3.375 GM, Admixture Fee 1 EACH in Sodium Chloride 0.9% 100 ML IVPB SCH ×4 (03:36→22:07)
[2016-11-03 05:07] LABS: #Eosinphils 0.3 thou/uL (0.0-0.7); #Lymphocytes 1.2 thou/uL (1.20-3.40); #Monocytes 0.8 thou/uL (0.11-0.59); #Neutrophils 9.8 thou/uL (1.40-6.50); %Basophils 0.2 % (0.0-1.0); %Eosinophils 2.3 % (0.0-10.0); %Lymphocytes 9.8 % (21.0-51.0); %Monocytes 6.5 % (0.0-10.0); Hematocrit 23.6 % (36.0-47.0); Mean Platelet Volume 8.2 fL (7.4-10.4); Red Blood Cell (RBC) Count 2.48 mill/uL (4.20-5.40)
[2016-11-03 05:10] LABS: Hematocrit 23.8 % (36.0-47.0)
[2016-11-03 05:33] LABS: ALT (SGPT) Less than 7 U/L (8-55); AST (SGOT) 12 U/L (5-34); Alkaline Phosphatase 50 U/L (40-150); Anion Gap 10 mmol/L (10-20); BUN (Urea Nitrogen) 23 mg/dL (9.8-20.1); Bilirubin, Total 0.8 mg/dL (0.2-1.2); Calc. Creatinine Clearance 132 mL/min (70-130); Calcium 8.6 mg/dL (7.8-10.44); Carbon Dioxide 25 mmol/L (23-31); Chloride 108 mmol/L (98-107); Estimated GFR-MDRD 78; Protein, Total 5.3 g/dL (6.0-8.3)
[2016-11-03] MEDS: Dextrose 5 %-0.45 % NaCl 1,000 ML IV SCH (05:33)
[2016-11-03] MEDS: Pantoprazole 80 MG in Sodium Chloride 0.9% 100 ML IVP SCH ×2 (06:22→16:20)
[2016-11-03] MEDS: HYDROcodone/Acetaminophen 7.5/325 mg Tablet PO PRN (09:34)
[2016-11-03 09:46] LABS: Hematocrit 25.8 % (36.0-47.0)
--- NOTE | 2016-11-03 10:45 | PRG ---
DATE OF SERVICE: 11/03/2016 SUBJECTIVE: Ms. Walton states that she is feeling okay today. She has not passed any gas. She is not nauseated. She is not short of breath. She is having some abdominal pain, but this does not seem to be different than what she has been having. She did not walk yesterday, but did get up to a chair. The day before yesterday, she walked in the halls with her walker. OBJECTIVE: VITAL SIGNS: She had a low-grade temperature of 100.1 earlier this morning. Other than that, she has been afebrile, heart rate is around 100, and blood pressure 177/72. NG output yesterday was 11:50. SHAUN drainage went up to 75, but is still serosanguineous in color. ABDOMEN: Soft and nondistended. Bowel sounds are still diminished. Her incision is clean, dry, and intact. LABORATORY DATA: White count is mildly elevated at 12, H&H has been somewhat variable between 7.8 and 8.8, but has overall been stable since yesterday morning. Electrolytes are unremarkable. Blood sugars have ranged from 207 to 261. She has had TPN running and her blood sugars have been up since this started, but we have added some insulin to the bag and she is also being covered with sliding scale. ASSESSMENT: Status post extensive lysis of adhesions and small bowel resection with multiple postoperative issues including delirium, which seems to be clearing, and the expected postoperative ileus, which is still ongoing, a self- limiting GI bleed, which appears to have resolved, and today a low-grade fever. I am going to order blood cultures and a chest x-ray. The patient is at risk for intra-abdominal abscess but her abdominal exam has not really changed so I am not going to do any additional imaging today; however, if she were to spike high fever a CT of the abdomen and pelvis would certainly be considered. We are going to make concerted effort to get her up and moving more today, especially since her mental status seems to be somewhat improved. Her NG tube output is still too high to consider clamping and checking residuals. JANENED
[2016-11-03] MEDS ORDERED: Dextrose 5 %-0.45 % NaCl 1,000 ML IV SCH (12:14)
--- NOTE | 2016-11-03 12:29 | PRG ---
DATE OF SERVICE: 11/02/2016 SERVICE: Pulmonary Medicine INTERVAL HISTORY: The patient is doing fine from a respiratory standpoint. Her strength is coming along. Today, she was actually able to walk with physical therapy to the nursing station and back. That being said, she is still very resistant to any type of mobility type training. She denies any current fevers, chills, nausea, vomiting. She is more oriented today and the confusion is starting to clear a little bit. PHYSICAL EXAMINATION: VITAL SIGNS: Afebrile. Pulse 82, blood pressure 159/68, respirations 20, saturation 99% on room ai r. GENERAL: The patient is awake, alert, in no apparent distress. LUNGS: Excellent air entry with no prolonged expiratory phase or wheezing. Crackles are present de pendently. HEART: Normal rate, regular. ABDOMEN: Soft, nontender, nondistended. Bowel sounds positive. MUSCULOSKELETAL: No cyanosis or clubbing. There is 2+ pitting in the bilateral lower extremities. GENITOURINARY: No Quick catheter in place. NEUROLOGIC: Grossly nonfocal. LABORATORY DATA: WBC 12.2, hemoglobin 7.3, platelets 233,000. Potassium 3.4. Basic metabolic prof ile and liver function studies are otherwise unremarkable. ASSESSMENT: 1. Severe sepsis. 2. Gross peritonitis. 3. Urinary tract infection. 4. Small-bowel obstruction, status post exploratory laparotomy and excision of part of the small jed wel. 5. Acute blood loss anemia. PLAN: Potassium will be replaced today. IV fluids will be decreased to a total of 150 an hour. [facility] will continue to follow while she remains in house. I would like for her to s betito in the IMCU until she needs a little less support/motivation in moving. One dose of Lasix will be provided today. She has gotten significantly volume overloaded.
[2016-11-03] MEDS ORDERED: Potassium Chloride 40 MEQ in Premix Bag 1 BAG IVPB SCH (12:30)
[2016-11-03] MEDS ORDERED: Furosemide 20 MG/2 ML VIAL SLOW IVP SCH (12:30)
--- NOTE | 2016-11-03 12:33 | PRG ---
DATE OF SERVICE: 11/03/2016 SERVICE: Pulmonary Medicine INTERVAL HISTORY: The patient is doing great from a respiratory standpoint. She is on 2 liters rolando al cannula. Saturations are doing fantastic. She is up in a chair today. Yesterday, she worked ve ry well with physical therapy and actually walked. She denies any current fevers, chills, nausea or vomiting. There were no overnight events. She was having some low grade temperatures. PHYSICAL EXAMINATION: VITAL SIGNS: Afebrile, pulse 82, blood pressure 159/68, respirations 20, saturation 99% on room air . GENERAL: Awake, alert, in no apparent distress. LUNGS: Excellent air entry. There is no prolonged expiratory phase, wheezing or rhonchi. Dependen t crackles are present. HEART: Normal rate, regular. ABDOMEN: Soft, tender to palpation throughout without rebound or guarding. Bowel sounds are hypoac tive. GENITOURINARY: No Quick catheter. NEUROLOGIC: Grossly nonfocal. LABORATORY DATA: WBC 12.0 and stable. Hemoglobin 8.8. CBC is otherwise unremarkable. INR 1.2. C reatinine 0.73, BUN 23. Potassium 3.7. Basic metabolic profile and liver function studies are othe rwise unremarkable. ASSESSMENT: 1. Severe sepsis. 2. Gross peritonitis. 3. Urinary tract infection. 4. Small-bowel obstruction, status post exploratory laparotomy and excision of part of the small jed wel. 5. Acute blood loss anemia. PLAN: I will decrease her half normal saline to 25 an hour. TPN per Surgery. One dose of Lasix wi ll be provided. We will give her Tylenol. If she has a significant temperature, panculture and karen st x-ray will be considered. We currently not covering MRSA, but at this time have no need to.
--- NOTE | 2016-11-03 13:37 | RAD ---
PORTABLE CHEST: 11/03/2016 PROVIDED CLINICAL HISTORY: Fever. COMPARISON: 10/26/2016 FINDINGS: Left subclavian central line and enteric catheter are redemonstrated. The tip of the enteric cathet er is not visualized due to the radiographic technique. There are bibasilar subsegmental atelectati c changes present. the lungs are hypoinflated but appear otherwise clear. There is no pleural flui d or pneumothorax definitely present. IMPRESSION: Hypoinflated exam. POS: [facility]
[2016-11-03] MEDS: FAT EMULSION IV SCH ×12 (22:07)
[2016-11-03] MEDS: POTASSIUM CHLORIDE IV SCH ×12 (22:07)
[2016-11-03] MEDS: SODIUM ACETATE IV SCH ×12 (22:07)
[2016-11-03] MEDS: [UNRECOGNIZED DRUG - OTHER] IV SCH ×12 (22:07)
[2016-11-04] MEDS: Piperacillin/Tazobactam 3.375 GM, Admixture Fee 1 EACH in Sodium Chloride 0.9% 100 ML IVPB SCH ×4 (04:02→22:39)
[2016-11-04] MEDS: Furosemide 20 MG/2 ML VIAL SLOW IVP SCH (05:17)
[2016-11-04 05:58] LABS: #Eosinphils 0.2 thou/uL (0.0-0.7); #Monocytes 0.8 thou/uL (0.11-0.59); #Neutrophils 7.9 thou/uL (1.40-6.50); %Basophils 0.1 % (0.0-1.0); %Eosinophils 2.1 % (0.0-10.0); %Lymphocytes 9.6 % (21.0-51.0); %Monocytes 8.3 % (0.0-10.0); Hematocrit 25.2 % (36.0-47.0); Mean Platelet Volume 8.1 fL (7.4-10.4); Red Blood Cell (RBC) Count 2.62 mill/uL (4.20-5.40); White Blood Cell (WBC) Count 9.9 thou/uL (4.8-10.8)
[2016-11-04 06:14] LABS: Magnesium 1.5 mg/dL (1.6-2.6); Phosphorus 3.3 mg/dL (2.3-4.7)
[2016-11-04] MEDS ORDERED: Magnesium Sulfate 3 GM in Sodium Chloride 0.9% 100 ML IVPB SCH (09:30)
--- NOTE | 2016-11-04 12:09 | PRG ---
DATE OF SERVICE: 11/04/2016 SUBJECTIVE: The patient is awake, alert, in no distress. PHYSICAL EXAMINATION: VITAL SIGNS: Temperature 99.4, pulse 92, respirations 18, O2 saturation 97%, blood pressure 140/75. HEENT: Unremarkable. NECK: No JVD. LUNGS: Fairly clear. CARDIAC: S1 and S2 regular. ABDOMEN: Soft. EXTREMITIES: Edematous. LABORATORY DATA: White blood cell count 9.9, hematocrit 25.2, platelet count 355. No chemistry was done today. ASSESSMENT: 1. Sepsis. 2. Peritonitis. 3. Small-bowel obstruction. PLAN: She continues TPN for nutritional purposes. She continues on Zosyn. I do not see any change s that need to be made her care at this time.
[2016-11-04] MEDS: Acetaminophen 1,000 MG in Premix Bag 1 BAG IVPB SCH ×3 (12:33→23:17)
[2016-11-04] MEDS: Pantoprazole 80 MG in Sodium Chloride 0.9% 100 ML IVP SCH ×2 (12:33→23:01)
[2016-11-04] MEDS: Ketorolac Tromethamine 30 MG/ML VIAL IVP PRN ×2 (14:39→23:16)
--- NOTE | 2016-11-04 18:09 | PRG ---
DATE OF SERVICE: 11/04/2016 HISTORY OF PRESENT ILLNESS: Nia Walton is 10-day status post, 10/24/2016, 23:00, laparotomy, smal l bowel resection, 147 meters complex incisional hernia repair and central line placement by Anesthcarlyn jc. She has a history of laparotomy for colon resection, had adhesions and bowel obstruction. The patient has persistent ileus. Postoperatively, she has had gastrointestinal bleeding seen Dr. Wilkinson . Upper endoscopy was performed and she is on PPIs and serial hemoglobins. Mobility has been poor, but nurse this weekend and yesterday has had her out of bed most of the day. Patient complains of total body pains. Accu-Cheks are running in the 200s. She has D5 IV fluid solution and 25 mL per h our; in addition to her TPN. Magnesium is low this morning. No gas or flatus reported. OBJECTIVE: LUNGS: Clear to auscultation. CARDIAC: Regular rate and rhythm without murmur or gallop. ABDOMEN: Soft, rare bowel sounds. Incision looks good. Wound well healed. A 24-hour gastric drai nage is 150 mL. Urine output recorded. LABORATORIES DATA: Her magnesium is low. No labs today. Labs yesterday were normal except for gl ucose is 250 to 236, hemoglobin 8.2, white count 9. ASSESSMENT AND PLAN: She is doing well. We will discontinue the morphine. We will add around the clock Ofirmev and p.r.n. Toradol. Her renal function is normal. Her Accu-Cheks are high and she co pious urine output. We will discontinue the D5 IV fluid solution. We will replace her magnesium, i ncrease her mobility. Today, we will remove her SHAUN drain as it has put out very little and only ser osanguineous. We will also remove her nehemias and apply Mastisol and Steri-Strips.
[2016-11-04] MEDS: Ondansetron HCl/PF 4 MG/2 ML Vial IVP PRN (20:21)
[2016-11-04] MEDS ORDERED: FAT EMULSION IV SCH ×9 (22:00)
[2016-11-04] MEDS ORDERED: SODIUM ACETATE IV SCH ×9 (22:00)
[2016-11-04] MEDS ORDERED: POTASSIUM ACETATE IV SCH ×9 (22:00)
[2016-11-04] MEDS ORDERED: [UNRECOGNIZED DRUG - OTHER] IV SCH ×9 (22:00)
[2016-11-04] MEDS: [UNRECOGNIZED DRUG - OTHER] IV SCH ×11 (22:38)
[2016-11-04] MEDS: FAT EMULSION IV SCH ×11 (22:38)
[2016-11-04] MEDS: SODIUM ACETATE IV SCH ×11 (22:38)
[2016-11-04] MEDS: POTASSIUM ACETATE IV SCH ×11 (22:38)
[2016-11-05] MEDS: Piperacillin/Tazobactam 3.375 GM, Admixture Fee 1 EACH in Sodium Chloride 0.9% 100 ML IVPB SCH ×3 (04:41→16:07)
[2016-11-05] MEDS: diphenhydrAMINE HCl 50 MG/ML 1 ML VIAL IVP PRN (04:44)
[2016-11-05] MEDS: Ketorolac Tromethamine 30 MG/ML VIAL IVP PRN ×3 (05:15→18:07)
[2016-11-05] MEDS: Ondansetron HCl/PF 4 MG/2 ML Vial IVP PRN ×2 (05:29→18:07)
[2016-11-05 06:19] LABS: #Basophils 0.1 thou/uL (0.0-0.2); #Eosinphils 0.3 thou/uL (0.0-0.7); #Lymphocytes 0.8 thou/uL (1.20-3.40); #Monocytes 0.6 thou/uL (0.11-0.59); #Neutrophils 7.5 thou/uL (1.40-6.50); %Basophils 0.6 % (0.0-1.0); %Eosinophils 2.7 % (0.0-10.0); %Lymphocytes 8.9 % (21.0-51.0); %Monocytes 6.8 % (0.0-10.0); Hematocrit 27.1 % (36.0-47.0); Mean Platelet Volume 8.4 fL (7.4-10.4); Red Blood Cell (RBC) Count 2.78 mill/uL (4.20-5.40); White Blood Cell (WBC) Count 9.3 thou/uL (4.8-10.8)
[2016-11-05] MEDS: Acetaminophen 1,000 MG in Premix Bag 1 BAG IVPB SCH ×3 (06:36→18:07)
[2016-11-05] MEDS: Furosemide 20 MG/2 ML VIAL SLOW IVP SCH (06:36)
[2016-11-05 06:41] LABS: Magnesium 2.2 mg/dL (1.6-2.6); Phosphorus 3.9 mg/dL (2.3-4.7)
[2016-11-05] MEDS: Pantoprazole 80 MG in Sodium Chloride 0.9% 100 ML IVP SCH ×2 (09:19→16:53)
--- NOTE | 2016-11-05 12:02 | PRG ---
DATE OF SERVICE: 11/05/2016 SUBJECTIVE: Ms. Walton is doing better. She is much more conversant than she was when I saw nisreen izquierdo last week. PHYSICAL EXAMINATION: VITAL SIGNS: Her temperature is 97.5, pulse 85, respirations 20, O2 saturation 95%, blood pressure 147/51. HEENT: Unremarkable. NECK: Supple. No JVD. CHEST: Fairly clear. CARDIAC: S1 and S2 regular. ABDOMEN: Soft, diminished bowel sounds. EXTREMITIES: Trace edema. LABORATORY DATA: White blood cell count 9.3, hematocrit 27.1, platelet count 444. ASSESSMENT: 1. Sepsis. 2. Peritonitis. 3. Small-bowel obstruction. PLAN: She continues to improve slowly. Continue antibiotics and TPN.
--- NOTE | 2016-11-05 17:31 | PRG ---
DATE OF SERVICE: 11/05/2016 HISTORY OF PRESENT ILLNESS: Ms. Walton is doing well today. She is up in a chair. She refused amb ulation with therapy. I have talked to her about the fact that she may need to go to rehabilitation unit, but she does not want to go. I have told to her that she wants to avoid rehabilitation. She will need to walk with therapy and not refuse their services. OBJECTIVE: VITAL SIGNS: Temperature 97.5 degrees, heart rate 85, blood pressure 156/53. LUNGS: Clear to auscultation. CARDIAC: Regular rate and rhythm without murmur or gallop. ABDOMEN: Soft. Bowel sounds, minimal. She reports passing flatus. NG tube 400 mL for 24 hours. LABORATORY DATA: White count 9, hemoglobin 8.8. Accu-Cheks 140 to 128. No base met today. ASSESSMENT AND PLAN: Currently, the patient is doing well. At this point, we will clamp her NG tub e. If she does not have any nausea or vomiting, we can check a residual later tonight and perhaps r emove her NG tube. It only put out 150 mL for 24 hours a day prior. Her SHAUN drain has been removed. Continue TPN for now.
[2016-11-05] MEDS: [UNRECOGNIZED DRUG - OTHER] IV SCH ×11 (22:04)
[2016-11-05] MEDS: FAT EMULSION IV SCH ×11 (22:04)
[2016-11-05] MEDS: POTASSIUM ACETATE IV SCH ×11 (22:04)
[2016-11-05] MEDS: SODIUM ACETATE IV SCH ×11 (22:04)
[2016-11-06] MEDS: Ondansetron HCl/PF 4 MG/2 ML Vial IVP PRN ×2 (00:01→11:14)
[2016-11-06] MEDS: Ketorolac Tromethamine 30 MG/ML VIAL IVP PRN ×2 (02:39→19:53)
[2016-11-06] MEDS: Pantoprazole 80 MG in Sodium Chloride 0.9% 100 ML IVP SCH ×2 (04:27→15:23)
[2016-11-06 05:36] LABS: Magnesium 2.2 mg/dL (1.6-2.6)
[2016-11-06] MEDS: Furosemide 20 MG/2 ML VIAL SLOW IVP SCH (06:52)
[2016-11-06] MEDS: Acetaminophen 1,000 MG in Premix Bag 1 BAG IVPB SCH ×5 (06:52→17:34)
[2016-11-06 07:10] LABS: #Basophils 0.1 thou/uL (0.0-0.2); #Eosinphils 0.2 thou/uL (0.0-0.7); #Lymphocytes 0.7 thou/uL (1.20-3.40); #Monocytes 0.7 thou/uL (0.11-0.59); #Neutrophils 6.3 thou/uL (1.40-6.50); %Basophils 0.8 % (0.0-1.0); %Eosinophils 2.6 % (0.0-10.0); %Lymphocytes 9.4 % (21.0-51.0); %Monocytes 8.4 % (0.0-10.0); Hematocrit 26.6 % (36.0-47.0); Mean Platelet Volume 8.7 fL (7.4-10.4); Red Blood Cell (RBC) Count 2.74 mill/uL (4.20-5.40); White Blood Cell (WBC) Count 7.9 thou/uL (4.8-10.8)
[2016-11-06 12:53] LABS: ALT (SGPT) 9 U/L (8-55); AST (SGOT) 20 U/L (5-34); Alkaline Phosphatase 77 U/L (40-150); Anion Gap 11 mmol/L (10-20); BUN (Urea Nitrogen) 34 mg/dL (9.8-20.1); Bilirubin, Total 0.6 mg/dL (0.2-1.2); Calc. Creatinine Clearance 121 mL/min (70-130); Calcium 9.2 mg/dL (7.8-10.44); Carbon Dioxide 30 mmol/L (23-31); Chloride 100 mmol/L (98-107); Estimated GFR-MDRD 75; Globulin 3.8 g/dL (2.4-3.5); Protein, Total 6.4 g/dL (6.0-8.3)
--- NOTE | 2016-11-06 15:18 | PRG ---
DATE OF SERVICE: 11/06/2016 SERVICE: Pulmonary Medicine. INTERVAL HISTORY: The patient is doing great from a cardiovascular and respiratory standpoint. She is having a hard time breathing. That being said, she looks much more comfortable today and has an improving tone in her body. She is sitting in a chair once again. She has been walking on a daily basis with physical therapy. Otherwise, there has been no interval change to her condition. PHYSICAL EXAMINATION: VITAL SIGNS: Afebrile, pulse 99, blood pressure 171/76, respirations 18, saturation 95% on room air . GENERAL: Patient is awake, alert, in no apparent distress. LUNGS: Decent air entry with no prolonged expiratory phase, wheezing, rhonchi or crackles. HEART: Normal rate, regular. ABDOMEN: Soft, nontender, nondistended, bowel sounds positive. MUSCULOSKELETAL: No cyanosis or clubbing. There is no pitting in the bilateral lower extremities, but she does have 1-2+ pitting in the hip. GENITOURINARY: No Quick. NEUROLOGIC: Grossly nonfocal. LABORATORY DATA: WBC is 7.9, hemoglobin 8.8, platelets 538,000 and stable. INR 1.2. Magnesium and phosphorus fall within normal limits. Bacterial cultures are growing multiple organisms in the per itoneal fluid. Central line culture x2 are unremarkable. ASSESSMENT: 1. Severe sepsis. 2. Gross peritonitis. 3. Urinary tract infection, improving. 4. Small-bowel obstruction, status post exploratory laparotomy and excision of part of the small jed wel. 5. Acute blood loss anemia. PLAN: We will continue the TPN and watch her fluid balance fairly closely. We will provide her wit h a dose of Lasix every 24-48 hours if needed. Our Efforts on mobilizing the patient will continue. At this point, from a medical perspective, she is stable for transition out of the IMCU, but I brooke l leave this to surgery to decide on when this should occur. She still remains fairly debilitated a nd has a propensity for staying in bed if not appropriately motivated.
[2016-11-06] MEDS: FAT EMULSION IV SCH ×11 (22:13)
[2016-11-06] MEDS: [UNRECOGNIZED DRUG - OTHER] IV SCH ×11 (22:13)
[2016-11-06] MEDS: POTASSIUM ACETATE IV SCH ×11 (22:13)
[2016-11-06] MEDS: SODIUM ACETATE IV SCH ×11 (22:13)
[2016-11-07] MEDS: Acetaminophen 1,000 MG in Premix Bag 1 BAG IVPB SCH ×5 (00:07→23:25)
[2016-11-07] MEDS: Pantoprazole 80 MG in Sodium Chloride 0.9% 100 ML IVP SCH ×2 (01:57→23:11)
[2016-11-07] MEDS: Ketorolac Tromethamine 30 MG/ML VIAL IVP PRN (04:40)
[2016-11-07 05:20] LABS: ALT (SGPT) 9 U/L (8-55); AST (SGOT) 60 U/L (5-34); Alkaline Phosphatase 80 U/L (40-150); Anion Gap 10 mmol/L (10-20); BUN (Urea Nitrogen) 36 mg/dL (9.8-20.1); Bilirubin, Total 0.5 mg/dL (0.2-1.2); Calc. Creatinine Clearance 127 mL/min (70-130); Calcium 9.2 mg/dL (7.8-10.44); Carbon Dioxide 31 mmol/L (23-31); Chloride 101 mmol/L (98-107); Estimated GFR-MDRD 80; Globulin 3.6 g/dL (2.4-3.5); Protein, Total 6.1 g/dL (6.0-8.3)
[2016-11-07] MEDS: Furosemide 20 MG/2 ML VIAL SLOW IVP SCH (06:26)
--- NOTE | 2016-11-07 18:15 | PRG ---
DATE OF SERVICE: 11/07/2016 SERVICE: Pulmonary Medicine. INTERVAL HISTORY: The patient is doing great from a cardiovascular and respiratory standpoint. She denies any current shortness of breath. Her strength is improving. She has no specific complaints presently. PHYSICAL EXAMINATION: VITAL SIGNS: Afebrile, pulse 94, blood pressure 160/63, respirations 18 and saturation 96% on room air. GENERAL: The patient is awake and alert, in no apparent distress. LUNGS: Excellent air entry with no prolonged expiratory phase, wheezing, rhonchi or crackles. HEART: Normal rate and regular. ABDOMEN: Soft, nontender and nondistended. Bowel sounds are positive. MUSCULOSKELETAL: No cyanosis or clubbing. No pitting in the bilateral lower extremities. NEUROLOGIC: Grossly nonfocal. LABORATORY DATA: CBC and liver function studies are essentially unremarkable. Her BUN is 36 and creatinine is stable at 0.72. Blood cultures x2 are unremarkable. ASSESSMENT: 1. Severe sepsis. 2. Gross peritonitis. 3. Urinary tract infection, resolved. 4. Small-bowel obstruction, status post exploratory laparotomy and excision of part of the small bowel. 5. Acute blood loss anemia. PLAN: Nutrition per surgery. We will watch volume status very closely and provide Lasix on an as needed basis. From a purely respiratory perspective, she is stable for transition to the surgical unit. I will continue to follow while she remains in this location. We will continue our efforts on mobilizing her as much as possible. AYANA
--- NOTE | 2016-11-07 20:01 | PRG ---
DATE OF SERVICE: 11/07/2016 SUBJECTIVE: Ms. Walton is feeling okay today. She states that she has been better and she has been worse. She has had some intermittent nausea. Her NG is still to suction. She had 850 out yesterd ay, but only 250 the day before. She is still passing gas and states that earlier in the day she wa s hungry, although she is not currently. Her SHAUN output has been minimal and this was removed. White count yesterday was normal. Electrolytes today are unremarkable. Her BUN is slightly elevate d at 36 and her blood sugars are much better in the 130s to 160s. Albumin is 2.5, which is unchange d. Her abdomen is soft and nondistended. She is not really having much tenderness to palpation and her bowel sounds are present, although somewhat diminished. ASSESSMENT: Status post small bowel resection for obstruction. Still awaiting return of normal bow el function, but starting to pass gas and feel some hunger. I am going to try clamping her NG tube again, if she gets nauseated, we will place it back to suction. I plan to transfer her to the [facility] tomorrow, if she is stable tonight.
[2016-11-07] MEDS: POTASSIUM ACETATE IV SCH ×11 (22:19)
[2016-11-07] MEDS: FAT EMULSION IV SCH ×11 (22:19)
[2016-11-07] MEDS: [UNRECOGNIZED DRUG - OTHER] IV SCH ×11 (22:19)
[2016-11-07] MEDS: Ondansetron HCl/PF 4 MG/2 ML Vial IVP PRN (22:19)
[2016-11-07] MEDS: SODIUM ACETATE IV SCH ×11 (22:19)
[2016-11-07] MEDS: diphenhydrAMINE HCl 50 MG/ML 1 ML VIAL IVP PRN (23:05)
[2016-11-08] MEDS: Acetaminophen 1,000 MG in Premix Bag 1 BAG IVPB SCH ×2 (06:11→12:41)
[2016-11-08] MEDS ORDERED: Labetalol HCl 100 MG/20 ML VIAL SLOW IVP PRN (09:13)
[2016-11-08] MEDS ORDERED: Lisinopril 20 MG TAB PO SCH ×2 (09:15→09:30)
--- NOTE | 2016-11-08 09:25 | PRG ---
DATE OF SERVICE: 11/08/2016 SERVICE: Pulmonary Medicine INTERVAL HISTORY: The patient is doing great from a respiratory standpoint. Her strength is improv ing. She denies any current fevers, chills, nausea, vomiting or diarrhea. She has no belly pain. Her NG tube was clamped this morning because she has had decreasing residuals. Hopefully, she will be able to start attempting feeds soon. PHYSICAL EXAMINATION: VITAL SIGNS: Afebrile, pulse 104, blood pressure 185/76, respirations 22, saturation 92% on room ai r. GENERAL: The patient is awake, alert, in no apparent distress. LUNGS: Decent air entry. Minimal dependent crackles are present. HEART: Normal rate, regular. ABDOMEN: Soft, nontender, nondistended. Bowel sounds positive. MUSCULOSKELETAL: No cyanosis or clubbing. No pitting in the bilateral lower extremities. NEUROLOGIC: Grossly nonfocal. LABORATORY DATA: Blood sugars ranged from 136 to 158. Bacterial cultures are growing multiple orga nisms both gram negative and anaerobic. Blood cultures x2 were negative. ASSESSMENT: 1. Severe sepsis. 2. Gross peritonitis. 3. Urinary tract infection, resolved. 4. Small-bowel obstruction. 5. Status post exploratory laparotomy and small bowel resection. 6. Acute blood loss anemia. PLAN: I will switch her PPI over to twice daily. Nutrition per Surgery. Pulmonary Critical Care w ill continue to follow while the patient remains in IMCU, but from my perspective, she is stable for transition to the floor at this point. We will continue our mobilization efforts, which are gettin g easier.
[2016-11-08] MEDS ORDERED: Pregabalin 50 MG CAP PO SCH (09:30)
[2016-11-08] MEDS ORDERED: Pantoprazole 40 MG VIAL IVP SCH (09:30)
[2016-11-08] MEDS ORDERED: Furosemide 40 MG TAB PO SCH (09:30)
[2016-11-08 12:13] LABS: #Eosinphils 0.1 thou/uL (0.0-0.7); #Lymphocytes 1.3 thou/uL (1.20-3.40); #Monocytes 1.2 thou/uL (0.11-0.59); #Neutrophils 7.4 thou/uL (1.40-6.50); %Basophils 0.4 % (0.0-1.0); %Eosinophils 1.5 % (0.0-10.0); %Lymphocytes 13.1 % (21.0-51.0); %Monocytes 11.6 % (0.0-10.0); Hematocrit 20.3 % (36.0-47.0); Mean Platelet Volume 7.3 fL (7.4-10.4); Red Blood Cell (RBC) Count 2.12 mill/uL (4.20-5.40); White Blood Cell (WBC) Count 10.1 thou/uL (4.8-10.8)
[2016-11-08 12:35] LABS: Troponin I 0.013 ng/mL (< 0.028)
[2016-11-08 12:40] LABS: Anion Gap 12 mmol/L (10-20); BUN (Urea Nitrogen) 28 mg/dL (9.8-20.1); Calc. Creatinine Clearance 129 mL/min (70-130); Calcium 9.3 mg/dL (7.8-10.44); Carbon Dioxide 27 mmol/L (23-31); Chloride 99 mmol/L (98-107); Estimated GFR-MDRD 82
--- NOTE | 2016-11-08 20:00 | PRG ---
DATE OF SERVICE: 11/08/2016 SUBJECTIVE: Ms. Walton is feeling fairly well today. She has not had any nausea and is tolerating ice chips. She has had bowel movements and passed gas and is feeling a little more hungry. OBJECTIVE: Her heart rate has been up intermittently this morning to the low 100s. Other vital sig ns have been stable. NG residuals have been 200 or lower and appears to be mostly melted ice. Abdo men is soft, minimally tender and nondistended and there is no drainage from the SHAUN site. ASSESSMENT AND PLAN: Overall clinical improvements, I am concerned about her mild tachycardia this morning and I have ordered repeat labs, these came back with a drop in her hemoglobin and hematocrit , which is likely equilibration following her transfusions earlier in her hospital stay. She has no t had any bloody output from her NG tube, which has been discontinued. I did order one unit of gibson sfusion and I will recheck her level in the morning. We are going to start clear liquids and if the patient advances appropriately, we will ask rehab medicine to evaluate her for inpatient rehabilita tion.
[2016-11-08] MEDS: Pantoprazole 40 MG VIAL IVP SCH (20:23)
[2016-11-08] MEDS: Pregabalin 50 MG CAP PO SCH (20:23)
[2016-11-08] MEDS: [UNRECOGNIZED DRUG - OTHER] IV SCH ×11 (22:27)
[2016-11-08] MEDS: POTASSIUM ACETATE IV SCH ×11 (22:27)
[2016-11-08] MEDS: SODIUM ACETATE IV SCH ×11 (22:27)
[2016-11-08] MEDS: FAT EMULSION IV SCH ×11 (22:27)
[2016-11-09 04:44] LABS: #Eosinphils 0.1 thou/uL (0.0-0.7); #Lymphocytes 1.1 thou/uL (1.20-3.40); #Monocytes 0.9 thou/uL (0.11-0.59); %Basophils 0.1 % (0.0-1.0); %Eosinophils 1.5 % (0.0-10.0); %Lymphocytes 13.9 % (21.0-51.0); %Monocytes 11.1 % (0.0-10.0); Hematocrit 25.6 % (36.0-47.0); Mean Platelet Volume 7.2 fL (7.4-10.4); Red Blood Cell (RBC) Count 2.73 mill/uL (4.20-5.40); White Blood Cell (WBC) Count 8.1 thou/uL (4.8-10.8)
[2016-11-09 05:03] LABS: Anion Gap 12 mmol/L (10-20); BUN (Urea Nitrogen) 27 mg/dL (9.8-20.1); Calc. Creatinine Clearance 127 mL/min (70-130); Calcium 9.1 mg/dL (7.8-10.44); Carbon Dioxide 27 mmol/L (23-31); Chloride 99 mmol/L (98-107); Estimated GFR-MDRD 81; Magnesium 1.7 mg/dL (1.6-2.6); Phosphorus 3.3 mg/dL (2.3-4.7)
[2016-11-09] MEDS: Pantoprazole 40 MG VIAL IVP SCH ×2 (08:10→21:49)
[2016-11-09] MEDS: Pregabalin 50 MG CAP PO SCH ×2 (08:10→21:47)
[2016-11-09] MEDS: Furosemide 40 MG TAB PO SCH (08:11)
[2016-11-09] MEDS: Lisinopril 20 MG TAB PO SCH (08:11)
[2016-11-09] MEDS ORDERED: traMADol HCl 50 MG TAB PO PRN (10:27)
[2016-11-09] MEDS ORDERED: HYDROcodone/Acetaminophen 7.5/325 mg Tablet PO PRN (10:27)
--- NOTE | 2016-11-09 10:51 | PRG ---
DATE OF SERVICE: 11/09/2016 SERVICE: Pulmonary Medicine. INTERVAL HISTORY: The patient is doing great from a cardiovascular and respiratory standpoint. She denies any current fevers, chills, nausea, or vomiting. Her belly pain is actually okay. She has been up walking around. Right now she needs to have a bowel movement. Otherwise, there has been no change to her condition. There were no overnight events. She remains on room air. PHYSICAL EXAMINATION: VITAL SIGNS: Afebrile, pulse 109, blood pressure 140/71, respirations 22, saturation 92% on room ai r. GENERAL: Patient is awake, alert, in no apparent distress. LUNGS: Excellent air entry with no prolonged expiratory phase, wheezing, rhonchi or crackles. HEART: Normal rate, regular. ABDOMEN: Soft, nontender, nondistended, bowel sounds positive. MUSCULOSKELETAL: No cyanosis or clubbing. No pitting in the bilateral lower extremities. NEUROLOGIC: Grossly nonfocal. LABORATORY DATA: WBC 8.1, hemoglobin 8.4, and platelets 655,000. INR 1.2. Basic metabolic profile ; magnesium and phosphorus fall within normal limits. ASSESSMENT: 1. Severe sepsis. 2. Gross peritonitis. 3. Urinary tract infection, resolved. 4. Small-bowel obstruction. 5. Status post exploratory laparotomy and small bowel resection. 6. Acute blood loss anemia. PLAN: At this point, the patient has no ongoing requirements for Pulmonary or Critical Care opinion . As such, we will sign off. Please call with additional questions or concerns moving forward. Th e patient understands the importance for her to continue moving during this hospital stay as this wi ll speed up recovery.
[2016-11-09] MEDS: Morphine Sulfate 2 MG/ML SYRINGE SLOW IVP PRN (11:24)
[2016-11-09] MEDS: Insulin Regular 300 UNITS/3 ML VIAL SC PRN (12:49)
[2016-11-09] MEDS: traMADol HCl 50 MG TAB PO PRN (16:59)
[2016-11-09] MEDS: POTASSIUM ACETATE IV SCH ×11 (23:47)
[2016-11-09] MEDS: SODIUM ACETATE IV SCH ×11 (23:47)
[2016-11-09] MEDS: [UNRECOGNIZED DRUG - OTHER] IV SCH ×11 (23:47)
[2016-11-09] MEDS: FAT EMULSION IV SCH ×11 (23:47)
[2016-11-10] MEDS: Ondansetron HCl/PF 4 MG/2 ML Vial IVP PRN ×2 (02:26→07:35)
[2016-11-10] MEDS: Morphine Sulfate 2 MG/ML SYRINGE SLOW IVP PRN ×3 (03:52→20:42)
[2016-11-10 05:55] LABS: #Eosinphils 0.1 thou/uL (0.0-0.7); #Monocytes 0.9 thou/uL (0.11-0.59); #Neutrophils 10.5 thou/uL (1.40-6.50); %Basophils 0.2 % (0.0-1.0); %Eosinophils 1.1 % (0.0-10.0); %Lymphocytes 7.7 % (21.0-51.0); %Monocytes 7.2 % (0.0-10.0); Hematocrit 28.2 % (36.0-47.0); Mean Platelet Volume 7.3 fL (7.4-10.4); Red Blood Cell (RBC) Count 3.02 mill/uL (4.20-5.40); White Blood Cell (WBC) Count 12.5 thou/uL (4.8-10.8)
--- NOTE | 2016-11-10 06:09 | PDOC.PN ---
- Subjective Encounter Start Date: 11/10/16 Encounter Start Time: 06:00 CTSP for tachychardia. Pt denies dyspnea, denies chest pain - Objective Vital Signs & Weight: Vital Signs (12 hours) Temp Pulse Resp BP Pulse Ox 11/10/16 04:00 98.4 F 122 H 18 156/75 H 95 11/10/16 00:00 99.3 F 114 H 20 151/64 H 92 L 11/09/16 21:47 99.5 F 111 H 19 11/09/16 20:10 111 H 11/09/16 20:00 99.5 F 118 H 19 143/69 H 94 L 11/09/16 18:19 98.5 F Weight Admit Weight 224 lb 13.936 oz Weight 253 lb 9.6 oz Most Recent Monitor Data Heart Rate from ECG 94 NIBP 140/69 NIBP BP-Mean 91 Respiration from ECG 96 SpO2 96 I&O: 11/08/16 11/09/16 11/10/16 06:59 06:59 06:59 Intake Total 2738 3460 1979 Output Total 530 180 Balance 2208 3280 1979 Result Diagrams: 11/10/16 05:41 11/09/16 04:11 Additional Labs: Accuchecks 11/10/16 11/09/16 11/09/16 05:53 23:43 18:04 POC Glucose 160 H 158 H 135 H 11/09/16 11/09/16 11:52 06:01 POC Glucose 173 H 150 H Phys Exam - Physical Examination Constitutional: NAD HEENT: moist MMs Neck: no JVD Respiratory: no wheezing, no rales, no rhonchi diminished at bases s1 s2 present, tachy, no murmur, no rubs, no gallop disetnded, positive bowel sounds, no guarding, no rebound tenderness Musculoskeletal: no edema Neurological: non-focal Psychiatric: normal affect Skin: no rash Dx/Plan - Plan * . Pt is 71 yrs old female 1. S/P SBO lysis of adhesions 2. Tachychardia 3. H/O HTN 4. DM type 2 5. Sepsis 6. Acute anemia plan: EKG appears sinus tach. Recommend to check BMP, Mag, phos We will monitor electrolytes closely Recommend heparin for dvt prophylaxis recommend to check CT to r/o PE If HR remains elevated then recommend to consult cardiology to evaluate patient case d/w pt & RN
[2016-11-10 06:10] LABS: Anion Gap 14 mmol/L (10-20); BUN (Urea Nitrogen) 39 mg/dL (9.8-20.1); Carbon Dioxide 24 mmol/L (23-31); Chloride 99 mmol/L (98-107)
[2016-11-10 06:11] LABS: Anion Gap 16 mmol/L (10-20); BUN (Urea Nitrogen) 42 mg/dL (9.8-20.1); Calc. Creatinine Clearance 100 mL/min (70-130); Calcium 9.2 mg/dL (7.8-10.44); Carbon Dioxide 23 mmol/L (23-31); Chloride 99 mmol/L (98-107); Estimated GFR-MDRD 60; Magnesium 1.9 mg/dL (1.6-2.6)
[2016-11-10 06:11] LABS: Calc. Creatinine Clearance 115 mL/min (70-130); Calcium 9.4 mg/dL (7.8-10.44); Estimated GFR-MDRD 71; Magnesium 1.9 mg/dL (1.6-2.6); Phosphorus 4.2 mg/dL (2.3-4.7)
[2016-11-10 06:18] LABS: Troponin I 0.026 ng/mL (< 0.028)
[2016-11-10] MEDS: Insulin Regular 300 UNITS/3 ML VIAL SC PRN (06:53)
[2016-11-10] MEDS: Furosemide 40 MG TAB PO SCH (09:22)
[2016-11-10] MEDS: Pregabalin 50 MG CAP PO SCH ×2 (09:23→20:49)
[2016-11-10] MEDS: Lisinopril 20 MG TAB PO SCH (09:23)
[2016-11-10] MEDS: Pantoprazole 40 MG VIAL IVP SCH ×2 (09:36→20:43)
--- NOTE | 2016-11-10 10:21 | CT ---
CT ANGIOGRM OF THE CHEST: CT ANGIOGRAM OF THE ABDOMINAL AND THORACIC AORTA: HISTORY: Tachycardia. Nausea. Vomiting. The patient had a prior bowel obstruction, not getting better. Ev aluate for pulmonary artery embolism and aortic abnormality. COMPARISON: 10/24/2016 TECHNIQUE: A CT angiogram of the chest and abdomen is performed in the axial plane, and three-dimensional refor matted images are submitted for interpretation. FINDINGS: CHEST: Diminished lung volumes, likely due to poor inspiratory effort. Atelectasis in both lower l obes is favored. A component of superimposed air space disease cannot be excluded. The trachea and central bronchi are patent. No significant pleural fluid. No pneumothorax. No mediastinal mass, lymphadenopathy, or hematoma. Heart size is within normal limits. No pericard ial effusion. Limited evaluation of the pulmonary arterial system due timing of bolus. There is no filling defect in the central pulmonary arteries. Evaluation of the lobar, segmental, and subsegmental arteries i s suboptimal. ABDOMEN: The intrahepatic and extrahepatic portal vein is patent. Mild hepatomegaly. No hepatic ma sses. The spleen and pancreas have appropriate enhancement. The gallbladder is unremarkable. There is symmetric enhancement of the kidneys. Bilaterally, no obstructive uropathy. There is a small amount of perihepatic and perisplenic free fluid. There is a small amount of fluid in the abdominal mesentery. There is no mass or lymphadenopathy. No free air. There are a few sc attered nonspecific central abdominal mesenteric lymph nodes. Reactive lymph nodes are favored. Limited evaluation of the alimentary canal due to lack of oral contrast. There are multiple promine nt, fluid-filled small bowel loops. Coronal reformatted images demonstrate a slight protrusion of m esentery. The possibility of an internal hernia causing a partial obstructive process cannot be com pletely excluded. There appears to be a right hemicolectomy. There is a fluid collection at the ventral abdominal subcutaneous fat without air or attenuation. P ostoperative change is favored. PELVIS: The uterus and adnexa are unremarkable. No mass, lymphadenopathy, or free air. A small am ount of free fluid. The urinary bladder is unremarkable. CT ANGIOGRAM: The thoracic aorta and abdominal aorta have a normal caliber. No periaortic fat stra nding. No dissection. The celiac artery origin, the superior mesenteric artery origin, the bilater al renal artery ostia, and the inferior mesenteric artery origin have appropriate enhancement and cristal opal diameter. The aortic bifurcation and iliac arteries are patent. IMPRESSION: 1. Limited evaluation for pulmonary artery embolism. There is no evidence of a central pulmonary a rtery embolism. 2. No evidence of aneurysm or dissection with regard to the aorta. 3. Fluid-filled small bowel loops with mild prominence. There may be an obstructive process. Ther e is also some irregular appearance and positioning of the mesentery. Correlate for possible partia lly obstructing internal hernia. 4. Diminished lung volumes with left lower lobe opacification due to atelectasis. Superimposed pne umonia cannot be excluded. POS: HIEU
[2016-11-10] MEDS ORDERED: Enoxaparin Sodium 40 MG/0.4 ML SYRINGE SC SCH (12:15)
--- NOTE | 2016-11-10 15:35 | ULT ---
ULTRASOUND WITH DOPPLER DUPLEX VENOUS BILATEARL LOWER EXTREMITIES CPT: 29291 ICD-10-PCS: B54D INDICATIONS: Leg pain. TECHNIQUE: Color-flow Doppler, spectral wave-form analysis of pulsed Doppler, and lyons-scale imaging with compr ession and augmentation were used to evaluate the bilateral common femoral, femoral, popliteal, post erior tibial, and superficial femoral veins; and the proximal portions of the profunda femoral and g reater saphenous veins. FINDINGS: Appropriate compression, filling, and flow within the imaged deep venous system of each lower extrem ity. IMPRESSION: No deep venous thrombosis. POS: HIEU
[2016-11-10] MEDS ORDERED: ISOVUE-370 76%-LOCM 1 ML ONE (16:32)
[2016-11-10] MEDS: [UNRECOGNIZED DRUG - OTHER] IV SCH ×11 (22:17)
[2016-11-10] MEDS: POTASSIUM ACETATE IV SCH ×11 (22:17)
[2016-11-10] MEDS: FAT EMULSION IV SCH ×11 (22:17)
[2016-11-10] MEDS: SODIUM ACETATE IV SCH ×11 (22:17)
[2016-11-11] MEDS: Morphine Sulfate 2 MG/ML SYRINGE SLOW IVP PRN (03:13)
[2016-11-11 05:40] LABS: #Eosinphils 0.3 thou/uL (0.0-0.7); #Lymphocytes 1.3 thou/uL (1.20-3.40); #Monocytes 1.1 thou/uL (0.11-0.59); #Neutrophils 6.5 thou/uL (1.40-6.50); %Basophils 0.1 % (0.0-1.0); %Eosinophils 3.4 % (0.0-10.0); %Lymphocytes 14.4 % (21.0-51.0); %Monocytes 11.8 % (0.0-10.0); Hematocrit 23.2 % (36.0-47.0); Mean Platelet Volume 7.2 fL (7.4-10.4); Red Blood Cell (RBC) Count 2.47 mill/uL (4.20-5.40); White Blood Cell (WBC) Count 9.2 thou/uL (4.8-10.8)
[2016-11-11 06:17] LABS: Magnesium 2.1 mg/dL (1.6-2.6); Phosphorus 5.8 mg/dL (2.3-4.7)
[2016-11-11] MEDS: Furosemide 40 MG TAB PO SCH (07:58)
[2016-11-11] MEDS: Lisinopril 20 MG TAB PO SCH (08:45)
[2016-11-11] MEDS: Pregabalin 50 MG CAP PO SCH ×2 (08:45→20:20)
[2016-11-11] MEDS: Pantoprazole 40 MG VIAL IVP SCH ×2 (08:50→20:21)
[2016-11-11] MEDS: Enoxaparin Sodium 40 MG/0.4 ML SYRINGE SC SCH (08:50)
--- NOTE | 2016-11-11 09:22 | PDOC.PN ---
- Subjective Encounter Start Date: 11/11/16 Encounter Start Time: 09:19 Subjective: No f/c -: No n/v -: Generalized weakness - Objective Vital Signs & Weight: Vital Signs (12 hours) Temp Pulse Resp BP BP Pulse Ox 11/11/16 08:45 140/71 11/11/16 08:05 98.4 F 100 18 118/74 92 L 11/11/16 04:00 98.3 F 95 20 119/74 96 11/11/16 00:00 99.2 F 97 20 117/69 98 Weight Admit Weight 224 lb 13.936 oz Weight 273 lb 8 oz Most Recent Monitor Data Heart Rate from ECG 94 NIBP 140/69 NIBP BP-Mean 91 Respiration from ECG 96 SpO2 96 I&O: 11/10/16 11/11/16 11/12/16 06:59 06:59 06:59 Intake Total 1979 1837 Balance 1979 1837 Result Diagrams: 11/11/16 05:20 11/10/16 05:41 Additional Labs: Accuchecks 11/11/16 11/11/16 11/10/16 05:29 00:05 17:33 POC Glucose 125 H 119 H 134 H 11/10/16 12:01 POC Glucose 158 H Phys Exam - Physical Examination Constitutional: NAD HEENT: PERRLA, moist MMs Neck: no nodes, no JVD Respiratory: no wheezing, no rales Cardiovascular: no significant murmur, no rub regular rhythm, rapid rate Gastrointestinal: soft, non-tender Lymphatic: no nodes Skin: no rash, normal turgor Dx/Plan - Plan Pt is 71 yrs old female 1. S/P SBO lysis of adhesions 2. Tachychardia: Ruled out PE and DVTs, monitor 3. H/O HTN: monitor BP and HR closely 4. DM type 2: SSI and f/u accu checks
--- NOTE | 2016-11-11 17:26 | PRG ---
DATE OF SERVICE: 11/11/2016 Cristian Young PA-C dictating for Nelson Soto DO SUBJECTIVE: No acute events overnight. No nausea, no vomiting. Generalized weakness has been repo rted. OBJECTIVE: VITAL SIGNS: Temperature 98.4, heart rate 100, respiratory rate 18, blood pressure 140/71, 92% on o xygen. GENERAL: No acute distress. HEENT: Eyes are PERRLA. Moist mucous membranes. No JVD, no masses. RESPIRATORY: Clear bilaterally via auscultation. CARDIOVASCULAR: S1, S2, regular rate and rhythm. ABDOMEN: Soft, nontender, nondistended. ASSESSMENT AND PLAN: This is a 71-year-old female, status post SBO, lysis of adhesions complicated with delirium, hypoxia, tachycardia. She has been deconditioned. She will most likely need some ki nd of either rehab or alf at this time. Discharge planning was in place. The patient a ppears to be better. We have started her on a clear liquid diet with some Ensure Clear. We will fo llow up a.m. labs and follow her clinical course. The patient has been seen by Dr. Soto at bedside and agrees with the above plan.
[2016-11-11] MEDS: Insulin Regular 300 UNITS/3 ML VIAL SC PRN (17:57)
[2016-11-11] MEDS: FAT EMULSION IV SCH ×22 (22:40)
[2016-11-11] MEDS: POTASSIUM ACETATE IV SCH ×22 (22:40)
[2016-11-11] MEDS: SODIUM ACETATE IV SCH ×22 (22:40)
[2016-11-11] MEDS: [UNRECOGNIZED DRUG - OTHER] IV SCH ×22 (22:40)
[2016-11-12] MEDS: traMADol HCl 50 MG TAB PO PRN ×2 (04:31→08:26)
[2016-11-12 05:28] LABS: #Eosinphils 0.2 thou/uL (0.0-0.7); #Lymphocytes 1.2 thou/uL (1.20-3.40); #Neutrophils 6.7 thou/uL (1.40-6.50); %Basophils 0.1 % (0.0-1.0); %Eosinophils 2.2 % (0.0-10.0); %Lymphocytes 12.8 % (21.0-51.0); %Monocytes 11.2 % (0.0-10.0); Mean Platelet Volume 7.3 fL (7.4-10.4); Red Blood Cell (RBC) Count 2.78 mill/uL (4.20-5.40); White Blood Cell (WBC) Count 9.1 thou/uL (4.8-10.8)
[2016-11-12 05:37] LABS: Magnesium 2.2 mg/dL (1.6-2.6)
[2016-11-12] MEDS: Furosemide 40 MG TAB PO SCH (08:25)
[2016-11-12] MEDS: Pregabalin 50 MG CAP PO SCH ×2 (08:25→20:36)
[2016-11-12] MEDS: Pantoprazole 40 MG VIAL IVP SCH ×2 (08:27→20:37)
[2016-11-12] MEDS: Lisinopril 20 MG TAB PO SCH (08:27)
[2016-11-12] MEDS: Enoxaparin Sodium 40 MG/0.4 ML SYRINGE SC SCH (08:28)
--- NOTE | 2016-11-12 08:30 | PDOC.PN ---
- Subjective Encounter Start Date: 11/12/16 Encounter Start Time: 08:29 Subjective: SOB stable -: No f/c -: Generalized weakness/fatigue - Objective MAR Reviewed: Yes Vital Signs & Weight: Vital Signs (12 hours) Temp Pulse Resp BP Pulse Ox 11/12/16 07:40 99.1 F 107 H 16 136/76 92 L 11/12/16 04:45 97.5 F L 112 H 16 111/67 94 L 11/12/16 00:57 99.0 F 109 H 18 125/75 98 11/11/16 22:07 98.5 F 101 H 18 142/80 H 98 Weight Admit Weight 224 lb 13.936 oz Weight 273 lb 8.123 oz Most Recent Monitor Data Heart Rate from ECG 94 NIBP 140/69 NIBP BP-Mean 91 Respiration from ECG 96 SpO2 96 I&O: 11/11/16 11/12/16 11/13/16 06:59 06:59 06:59 Intake Total 1838 1358 Balance 1838 1358 Result Diagrams: 11/12/16 05:00 11/10/16 05:41 Additional Labs: Accuchecks 11/12/16 11/11/16 11/11/16 04:57 21:32 17:38 POC Glucose 138 H 139 H 159 H 11/11/16 12:06 POC Glucose 131 H Phys Exam - Physical Examination Constitutional: NAD HEENT: moist MMs, sclera anicteric Neck: no nodes, no JVD Respiratory: no wheezing, no rales, no rhonchi reg rhythm, tachycardia Gastrointestinal: soft, positive bowel sounds Neurological: non-focal, moves all 4 limbs Lymphatic: no nodes Psychiatric: normal affect Skin: no rash, normal turgor Dx/Plan - Plan 1. S/P SBO lysis of adhesions 2. Tachychardia: Ruled out PE and DVTs, monitor 3. H/O HTN: monitor BP and HR closely 4. DM type 2: SSI and f/u accu checks check labs in AM
[2016-11-12 09:41] LABS: Anion Gap 14 mmol/L (10-20); BUN (Urea Nitrogen) 51 mg/dL (9.8-20.1); Calc. Creatinine Clearance 138 mL/min (70-130); Calcium 9.3 mg/dL (7.8-10.44); Carbon Dioxide 25 mmol/L (23-31); Chloride 100 mmol/L (98-107); Estimated GFR-MDRD 80
[2016-11-12 10:06] LABS: Band 2 % (5-11); Hematocrit 25.6 % (36.0-47.0); Mean Platelet Volume 7.4 fL (7.4-10.4); Neutrophil 66 % (42-75); Polychromasia SLIGHT = 2-3 cells (100X) (0-2/hpf); Red Blood Cell (RBC) Count 2.75 mill/uL (4.20-5.40); White Blood Cell (WBC) Count 9.3 thou/uL (4.8-10.8)
[2016-11-12] MEDS: HYDROcodone/Acetaminophen 7.5/325 mg Tablet PO PRN ×2 (11:33→23:05)
[2016-11-12] MEDS: Insulin Regular 300 UNITS/3 ML VIAL SC PRN (12:46)
[2016-11-12] MEDS: Ondansetron HCl/PF 4 MG/2 ML Vial IVP PRN (20:48)
[2016-11-12] MEDS: FAT EMULSION IV SCH ×11 (22:33)
[2016-11-12] MEDS: [UNRECOGNIZED DRUG - OTHER] IV SCH ×11 (22:33)
[2016-11-12] MEDS: SODIUM ACETATE IV SCH ×11 (22:33)
[2016-11-12] MEDS: POTASSIUM ACETATE IV SCH ×11 (22:33)
[2016-11-13 04:07] LABS: Anion Gap 13 mmol/L (10-20); BUN (Urea Nitrogen) 61 mg/dL (9.8-20.1); Calc. Creatinine Clearance 113 mL/min (70-130); Calcium 9.4 mg/dL (7.8-10.44); Carbon Dioxide 26 mmol/L (23-31); Chloride 99 mmol/L (98-107); Estimated GFR-MDRD 63
[2016-11-13 06:22] LABS: #Eosinphils 0.2 thou/uL (0.0-0.7); #Lymphocytes 1.5 thou/uL (1.20-3.40); #Monocytes 1.4 thou/uL (0.11-0.59); #Neutrophils 8.6 thou/uL (1.40-6.50); %Basophils 0.2 % (0.0-1.0); %Eosinophils 1.8 % (0.0-10.0); %Lymphocytes 12.9 % (21.0-51.0); %Monocytes 11.8 % (0.0-10.0); Hematocrit 25.5 % (36.0-47.0); Mean Platelet Volume 8.7 fL (7.4-10.4); Red Blood Cell (RBC) Count 2.68 mill/uL (4.20-5.40); White Blood Cell (WBC) Count 11.7 thou/uL (4.8-10.8)
[2016-11-13 06:43] LABS: Magnesium 2.2 mg/dL (1.6-2.6); Phosphorus 4.1 mg/dL (2.3-4.7)
[2016-11-13] MEDS: Furosemide 40 MG TAB PO SCH (07:57)
[2016-11-13] MEDS: Pregabalin 50 MG CAP PO SCH ×2 (07:59→20:26)
[2016-11-13] MEDS: Pantoprazole 40 MG VIAL IVP SCH ×2 (07:59→20:27)
[2016-11-13] MEDS: Enoxaparin Sodium 40 MG/0.4 ML SYRINGE SC SCH (08:00)
[2016-11-13] MEDS: Lisinopril 20 MG TAB PO SCH (08:00)
[2016-11-13] MEDS: HYDROcodone/Acetaminophen 7.5/325 mg Tablet PO PRN (09:43)
[2016-11-13] MEDS: Ondansetron HCl/PF 4 MG/2 ML Vial IVP PRN ×2 (11:06→20:27)
[2016-11-13] MEDS ORDERED: Lidocaine 1% w/Epinephrine 1:200K 30 ML VIAL FS SCH (13:45)
--- NOTE | 2016-11-13 13:45 | PDOC.PN ---
- Subjective Encounter Start Date: 11/13/16 Encounter Start Time: 13:43 -: old records requested/rev Patient seen and examined. No new complaints. No overnight events, feels overall weak, no fever - Objective MAR Reviewed: Yes Vital Signs & Weight: Vital Signs (12 hours) Temp Pulse Resp BP BP Pulse Ox 11/13/16 12:00 99.0 F 102 H 14 104/66 92 L 11/13/16 11:00 98.8 F 11/13/16 08:00 100.2 F H 106 H 20 128/74 149/80 H 93 L 11/13/16 07:50 100.2 F H 106 H 20 11/13/16 04:00 99.4 F 100 16 128/74 93 L Weight Admit Weight 224 lb 13.936 oz Weight 267 lb 3.204 oz Most Recent Monitor Data Heart Rate from ECG 94 NIBP 140/69 NIBP BP-Mean 91 Respiration from ECG 96 SpO2 96 I&O: 11/12/16 11/13/16 11/14/16 06:59 06:59 06:59 Intake Total 1358 1313 Output Total 963 Balance 1358 350 Result Diagrams: 11/13/16 03:35 11/13/16 03:35 Additional Labs: Accuchecks 11/13/16 11/13/16 11/13/16 12:46 06:07 00:38 POC Glucose 146 H 138 H 151 H 11/12/16 15:55 POC Glucose 125 H Phys Exam - Physical Examination Constitutional: NAD HEENT: PERRLA, moist MMs, sclera anicteric Neck: no JVD, supple Respiratory: no wheezing, no rales, no rhonchi Cardiovascular: RRR, no significant murmur, no rub Gastrointestinal: soft, non-tender, no distention, positive bowel sounds Musculoskeletal: no edema, pulses present Neurological: non-focal, normal sensation Psychiatric: normal affect Skin: no rash, normal turgor Dx/Plan (1) Acute respiratory failure with hypoxia Code(s): J96.01 - ACUTE RESPIRATORY FAILURE WITH HYPOXIA Status: Resolved (2) Delirium Code(s): R41.0 - DISORIENTATION, UNSPECIFIED Status: Resolved (3) SBO (small bowel obstruction) Code(s): K56.69 - OTHER INTESTINAL OBSTRUCTION Status: Acute Comment: s/p adhesiolysis (4) Sinus tachycardia Code(s): R00.0 - TACHYCARDIA, UNSPECIFIED Status: Resolved (5) Diabetes type 2, controlled Code(s): E11.9 - TYPE 2 DIABETES MELLITUS WITHOUT COMPLICATIONS Status: Chronic (6) Dyslipidemia Code(s): E78.5 - HYPERLIPIDEMIA, UNSPECIFIED Status: Chronic (7) Hypertension Code(s): I10 - ESSENTIAL (PRIMARY) HYPERTENSION Status: Chronic (8) Morbid obesity with BMI of 40.0-44.9, adult Code(s): E66.01 - MORBID (SEVERE) OBESITY DUE TO EXCESS CALORIES; Z68.41 - BODY MASS INDEX (BMI) 40.0-44.9, ADULT Status: Chronic (9) Acute kidney injury Code(s): N17.9 - ACUTE KIDNEY FAILURE, UNSPECIFIED Status: Resolved (10) Hypernatremia Code(s): E87.0 - HYPEROSMOLALITY AND HYPERNATREMIA Status: Resolved (11) Hypokalemia Code(s): E87.6 - HYPOKALEMIA Status: Resolved (12) Physical deconditioning Code(s): R53.81 - OTHER MALAISE Status: Acute - Plan cont current plan of care, PT/OT, hospice social worker * continue TPN * continue clear liquid diet and advance as tolerated * medication reviewed as below * symptomatic treatment * will need rehab on discharge * home medication reconciled. Review of Systems - Review of Systems Constitutional: Weakness, Malaise. negative: Fever, Chills, Sweats, Other Respiratory: negative: Cough, Dry, Shortness of Breath, Hemoptysis, SOB with Excertion, Pleuritic Pain, Sputum, Wheezing Cardiovascular: negative: Chest Pain, Palpitations, Orthopnea, Paroxysmal Noc. Dyspnea, Edema, Light Headedness, Other Gastrointestinal: negative: Nausea, Vomiting, Abdominal Pain, Diarrhea, Constipation, Melena, Hematochezia, Other Genitourinary: negative: Dysuria, Frequency, Incontinence, Hematuria, Retention , Other Musculoskeletal: negative: Neck Pain, Shoulder Pain, Arm Pain, Back Pain, Hand Pain, Leg Pain, Foot Pain, Other Skin: negative: Rash, Lesions, Ramón, Bruising, Other - Medications/Allergies Allergies/Adverse Reactions: Allergies Allergy/AdvReac Type Severity Reaction Status Date / Time No Known Allergies Allergy Verified 10/24/16 06:40 Medications: Current Medications Albuterol/Ipratropium (Duoneb) 3 ml NEB Q4H PRN PRN Reason: Wheezing Dextrose/Water (Dextrose 50%) 25 gm SLOW IVP PRN PRN PRN Reason: Hypoglycemia Diphenhydramine HCl (Benadryl) 25 mg IVP Q3H PRN PRN Reason: Itching Last Admin: 11/07/16 23:05 Dose: 25 mg Diphenhydramine HCl (Benadryl) 25 mg PO Q3H PRN PRN Reason: Itching Diphenhydramine HCl (Benadryl) 25 mg IM Q3H PRN PRN Reason: Itching Enoxaparin Sodium (Lovenox) 40 mg SC 0900 [facility] Last Admin: 11/13/16 08:00 Dose: 40 mg Furosemide (Lasix) 40 mg PO DAILY-[facility] Last Admin: 11/13/16 07:57 Dose: 40 mg Glucagon (Glucagon) 1 mg IM PRN PRN PRN Reason: Hypoglycemia Haloperidol (Haldol) 0.5 mg PO [facility] Last Admin: 11/12/16 20:37 Dose: 0.5 mg Hydralazine HCl (Apresoline) 10 mg SLOW IVP Q4H PRN PRN Reason: SBP > 170 or DBP > 100 Last Admin: 11/08/16 18:39 Dose: 10 mg Dextrose/Water (D5w) 1,000 mls @ 0 mls/hr IV .Q0M PRN; As Directed PRN Reason: Hypoglycemia Fat Emulsion Intravenous 250 ml/ Sodium Acetate 70 meq/Potassium Acetate 40 meq/ Potassium Phosphate 15 mmol/Calcium Gluconate 10 meq/Magnesium Sulfate 20 meq/ Insulin Human Regular 38 units / Multivitamins 10 ml/Chromium/Copper/Manganese/ Seleni/Zn 5 ml/ Dextrose/Water / Sterile Water/ Amino Acids 1,927.0452 mls @ 70 mls/hr IV 2200 [facility] Last Admin: 11/12/16 22:33 Dose: 1,927.0452 mls Insulin Human Regular (Humulin R) 0 units SC .MODERATE SLIDING SC PRN; Protocol PRN Reason: MODERATE SLIDING SCALE Last Admin: 11/12/16 12:46 Dose: 2 unit Insulin Human Regular (Humulin R) 0 units SC .BEDTIME SLIDING SC PRN; Protocol PRN Reason: BEDTIME SLIDING SCALE Labetalol HCl (Normodyne) 20 mg SLOW IVP Q1H PRN PRN Reason: SBP Greater Than 180 Lidocaine/Epinephrine (Xylocaine 1% W/ Epi 1:200k) 30 ml FS NOW [facility] Stop: 11/13/16 23:59 Lisinopril (Zestril) 20 mg PO DAILY [facility] Last Admin: 11/13/16 08:00 Dose: 20 mg Miscellaneous Medication (Pharmacy To Dose) 1 each IVPB PRN PRN PRN Reason: Pharmacy to dose Ondansetron HCl (Zofran) 4 mg IVP Q4H PRN PRN Reason: Nausea/Vomiting Last Admin: 11/13/16 11:06 Dose: 4 mg Pantoprazole Sodium (Protonix) 40 mg IVP Q12HR [facility] Last Admin: 11/13/16 07:59 Dose: 40 mg Pregabalin (Lyrica) 50 mg PO BID [facility] Last Admin: 11/13/16 07:59 Dose: 50 mg Sodium Chloride (Flush - Normal Saline) 10 ml IVF Q12HR [facility] Last Admin: 11/13/16 07:59 Dose: 10 ml Sodium Chloride (Flush - Normal Saline) 10 ml IVF PRN PRN PRN Reason: Saline Flush Last Admin: 11/13/16 11:06 Dose: 10 ml Tramadol HCl (Ultram) 50 mg PO Q4H PRN PRN Reason: Mild Pain (1-3) Last Admin: 11/11/16 21:25 Dose: 50 mg Tramadol HCl (Ultram) 100 mg PO Q4H PRN PRN Reason: Moderate Pain (4-6) Last Admin: 11/12/16 08:26 Dose: 100 mg Zolpidem Tartrate (Ambien) 5 mg PO HSPRN PRN PRN Reason: Insomnia
[2016-11-13] MEDS: Acetaminophen 500 MG TAB PO PRN (19:02)
[2016-11-13] MEDS: Vancomycin HCl 1 GM in Premix Bag 1 BAG IVPB SCH (23:07)
[2016-11-13] MEDS: SODIUM ACETATE IV SCH ×11 (23:08)
[2016-11-13] MEDS: [UNRECOGNIZED DRUG - OTHER] IV SCH ×11 (23:08)
[2016-11-13] MEDS: POTASSIUM ACETATE IV SCH ×11 (23:08)
[2016-11-13] MEDS: FAT EMULSION IV SCH ×11 (23:08)
[2016-11-13] MEDS: traMADol HCl 50 MG TAB PO PRN (23:09)
--- NOTE | 2016-11-13 23:18 | RAD ---
SINGLE VIEW OF THE CHEST: Comparison: 10-24-16 History: Elevated SIRS score for acute pancreatitis. FINDINGS: Single view of the chest shows a normal sized cardiomediastinal silhouette. There is opacity in the left lung base which may represent atelectasis and/or a pleural effusion. There is a left subclavian central venous catheter, unchanged in position. Degenerative changes are seen in the spine. IMPRESSION: Left lower lobe atelectasis versus pleural effusion. POS: [facility]
[2016-11-14 05:50] LABS: #Eosinphils 0.3 thou/uL (0.0-0.7); #Lymphocytes 1.8 thou/uL (1.20-3.40); #Monocytes 1.7 thou/uL (0.11-0.59); #Neutrophils 12.8 thou/uL (1.40-6.50); %Basophils 0.1 % (0.0-1.0); %Eosinophils 1.6 % (0.0-10.0); %Lymphocytes 10.8 % (21.0-51.0); %Monocytes 10.4 % (0.0-10.0); Hematocrit 23.5 % (36.0-47.0); Mean Platelet Volume 7.6 fL (7.4-10.4); White Blood Cell (WBC) Count 16.6 thou/uL (4.8-10.8)
[2016-11-14 06:11] LABS: Magnesium 2.4 mg/dL (1.6-2.6); Phosphorus 4.7 mg/dL (2.3-4.7)
[2016-11-14] MEDS: Insulin Regular 300 UNITS/3 ML VIAL SC PRN (06:18)
[2016-11-14] MEDS: Lisinopril 20 MG TAB PO SCH (08:05)
[2016-11-14] MEDS: Furosemide 40 MG TAB PO SCH (08:05)
[2016-11-14] MEDS: Ondansetron HCl/PF 4 MG/2 ML Vial IVP PRN (08:05)
[2016-11-14] MEDS: Enoxaparin Sodium 40 MG/0.4 ML SYRINGE SC SCH ×2 (08:06→08:14)
[2016-11-14] MEDS: Pregabalin 50 MG CAP PO SCH ×2 (08:06→21:14)
[2016-11-14] MEDS: Pantoprazole 40 MG VIAL IVP SCH ×2 (08:06→21:14)
[2016-11-14] MEDS: Vancomycin HCl 1 GM in Premix Bag 1 BAG IVPB SCH ×2 (11:31→22:38)
--- NOTE | 2016-11-14 12:02 | PDOC.PN ---
- Subjective Encounter Start Date: 11/14/16 Encounter Start Time: 10:00 pt is very weak, tolerating liquid diet, on TPN, bedside - Objective MAR Reviewed: Yes Vital Signs & Weight: Vital Signs (12 hours) Temp Pulse Resp BP BP Pulse Ox 11/14/16 11:56 98.4 F 96 18 108/68 98 11/14/16 08:09 98.2 F 99 20 110/68 95 11/14/16 08:05 110/68 11/14/16 07:55 98.2 F 99 20 11/14/16 04:00 98.8 F 100 14 98/62 97 11/14/16 01:49 93 L 11/14/16 00:23 99.7 F H 102 H 12 98/50 L 96 Weight Admit Weight 224 lb 13.936 oz Weight 268 lb 15.423 oz Most Recent Monitor Data Heart Rate from ECG 94 NIBP 140/69 NIBP BP-Mean 91 Respiration from ECG 96 SpO2 96 I&O: 11/13/16 11/14/16 11/15/16 06:59 06:59 06:59 Intake Total 1313 1370 Output Total 963 Balance 350 1370 Result Diagrams: 11/14/16 05:17 11/13/16 03:35 Additional Labs: Accuchecks 11/14/16 11/14/16 11/13/16 11:16 06:00 20:54 POC Glucose 159 H 154 H 168 H 11/13/16 11/13/16 19:50 12:46 POC Glucose 162 H 146 H Phys Exam - Physical Examination Constitutional: NAD HEENT: PERRLA, moist MMs, sclera anicteric Neck: no JVD, supple Respiratory: no wheezing, no rales, no rhonchi left base reduced air entry Cardiovascular: RRR, no significant murmur, no rub tachycardia Gastrointestinal: soft, non-tender, no distention Musculoskeletal: no edema, pulses present Neurological: non-focal, normal sensation Psychiatric: normal affect Skin: no rash, normal turgor Dx/Plan (1) Acute respiratory failure with hypoxia Code(s): J96.01 - ACUTE RESPIRATORY FAILURE WITH HYPOXIA Status: Resolved (2) Delirium Code(s): R41.0 - DISORIENTATION, UNSPECIFIED Status: Resolved (3) SBO (small bowel obstruction) Code(s): K56.69 - OTHER INTESTINAL OBSTRUCTION Status: Acute Comment: s/p adhesiolysis (4) Sinus tachycardia Code(s): R00.0 - TACHYCARDIA, UNSPECIFIED Status: Resolved (5) Diabetes type 2, controlled Code(s): E11.9 - TYPE 2 DIABETES MELLITUS WITHOUT COMPLICATIONS Status: Chronic (6) Dyslipidemia Code(s): E78.5 - HYPERLIPIDEMIA, UNSPECIFIED Status: Chronic (7) Hypertension Code(s): I10 - ESSENTIAL (PRIMARY) HYPERTENSION Status: Chronic (8) Morbid obesity with BMI of 40.0-44.9, adult Code(s): E66.01 - MORBID (SEVERE) OBESITY DUE TO EXCESS CALORIES; Z68.41 - BODY MASS INDEX (BMI) 40.0-44.9, ADULT Status: Chronic (9) Acute kidney injury Code(s): N17.9 - ACUTE KIDNEY FAILURE, UNSPECIFIED Status: Resolved (10) Hypernatremia Code(s): E87.0 - HYPEROSMOLALITY AND HYPERNATREMIA Status: Resolved (11) Hypokalemia Code(s): E87.6 - HYPOKALEMIA Status: Resolved (12) Physical deconditioning Code(s): R53.81 - OTHER MALAISE Status: Acute (13) Left lower lobe pneumonia Code(s): J18.1 - LOBAR PNEUMONIA, UNSPECIFIED ORGANISM Status: Acute - Plan cont current plan of care, plan discussed w/ family, continue antibiotics * will add meropenam * continue vancomycin * continue TPN * post operative care * today plan for replacing new central line * medication reviewed as below * symptomatic treatment * discussed with . Review of Systems - Review of Systems ENT: negative: Ear Pain, Ear Discharge, Nose Pain, Nose Discharge, Nose Congestion, Mouth Pain, Mouth Swelling, Throat Pain, Throat Swelling, Other Respiratory: negative: Cough, Dry, Shortness of Breath, Hemoptysis, SOB with Excertion, Pleuritic Pain, Sputum, Wheezing Cardiovascular: negative: Chest Pain, Palpitations, Orthopnea, Paroxysmal Noc. Dyspnea, Edema, Light Headedness, Other Gastrointestinal: negative: Nausea, Vomiting, Abdominal Pain, Diarrhea, Constipation, Melena, Hematochezia, Other Genitourinary: negative: Dysuria, Frequency, Incontinence, Hematuria, Retention , Other Musculoskeletal: negative: Neck Pain, Shoulder Pain, Arm Pain, Back Pain, Hand Pain, Leg Pain, Foot Pain, Other - Medications/Allergies Allergies/Adverse Reactions: Allergies Allergy/AdvReac Type Severity Reaction Status Date / Time No Known Allergies Allergy Verified 10/24/16 06:40 Medications: Current Medications Acetaminophen (Tylenol) 1,000 mg PO Q6H PRN PRN Reason: Fever > 101 Last Admin: 11/13/16 19:02 Dose: 1,000 mg Albuterol/Ipratropium (Duoneb) 3 ml NEB Q4H PRN PRN Reason: Wheezing Dextrose/Water (Dextrose 50%) 25 gm SLOW IVP PRN PRN PRN Reason: Hypoglycemia Diphenhydramine HCl (Benadryl) 25 mg IVP Q3H PRN PRN Reason: Itching Last Admin: 11/07/16 23:05 Dose: 25 mg Diphenhydramine HCl (Benadryl) 25 mg PO Q3H PRN PRN Reason: Itching Diphenhydramine HCl (Benadryl) 25 mg IM Q3H PRN PRN Reason: Itching Enoxaparin Sodium (Lovenox) 40 mg SC 0900 [facility] Last Admin: 11/14/16 08:14 Dose: Not Given Furosemide (Lasix) 40 mg PO DAILY-[facility] Last Admin: 11/14/16 08:05 Dose: 40 mg Glucagon (Glucagon) 1 mg IM PRN PRN PRN Reason: Hypoglycemia Haloperidol (Haldol) 0.5 mg PO HS [facility] Last Admin: 11/13/16 20:27 Dose: 0.5 mg Hydralazine HCl (Apresoline) 10 mg SLOW IVP Q4H PRN PRN Reason: SBP > 170 or DBP > 100 Last Admin: 11/08/16 18:39 Dose: 10 mg Dextrose/Water (D5w) 1,000 mls @ 0 mls/hr IV .Q0M PRN; As Directed PRN Reason: Hypoglycemia Fat Emulsion Intravenous 250 ml/ Sodium Acetate 70 meq/Potassium Acetate 40 meq/ Potassium Phosphate 15 mmol/Calcium Gluconate 10 meq/Magnesium Sulfate 20 meq/ Insulin Human Regular 38 units / Multivitamins 10 ml/Chromium/Copper/Manganese/ Seleni/Zn 5 ml/ Dextrose/Water / Sterile Water/ Amino Acids 1,927.0452 mls @ 70 mls/hr IV 2200 [facility] Last Admin: 11/13/16 23:08 Dose: 1,927.0452 mls Vancomycin HCl 1 gm/ Device 200 mls @ 200 mls/hr IVPB 1100,2300 [facility] Last Admin: 11/14/16 11:31 Dose: 200 mls Insulin Human Regular (Humulin R) 0 units SC .MODERATE SLIDING SC PRN; Protocol PRN Reason: MODERATE SLIDING SCALE Last Admin: 11/14/16 06:18 Dose: 2 unit Insulin Human Regular (Humulin R) 0 units SC .BEDTIME SLIDING SC PRN; Protocol PRN Reason: BEDTIME SLIDING SCALE Labetalol HCl (Normodyne) 20 mg SLOW IVP Q1H PRN PRN Reason: SBP Greater Than 180 Lisinopril (Zestril) 20 mg PO DAILY [facility] Last Admin: 11/14/16 08:05 Dose: 20 mg Miscellaneous Medication (Pharmacy To Dose) 1 each IVPB PRN PRN PRN Reason: Pharmacy to dose Ondansetron HCl (Zofran) 4 mg IVP Q4H PRN PRN Reason: Nausea/Vomiting Last Admin: 11/14/16 08:05 Dose: 4 mg Pantoprazole Sodium (Protonix) 40 mg IVP Q12HR [facility] Last Admin: 11/14/16 08:06 Dose: 40 mg Pregabalin (Lyrica) 50 mg PO BID [facility] Last Admin: 11/14/16 08:06 Dose: 50 mg Sodium Chloride (Flush - Normal Saline) 10 ml IVF Q12HR [facility] Last Admin: 11/14/16 08:07 Dose: 10 ml Sodium Chloride (Flush - Normal Saline) 10 ml IVF PRN PRN PRN Reason: Saline Flush Last Admin: 11/13/16 11:06 Dose: 10 ml Zolpidem Tartrate (Ambien) 5 mg PO HSPRN PRN PRN Reason: Insomnia
[2016-11-14] MEDS: Meropenem 1 GM in Sodium Chloride 0.9% 100 ML IVPB SCH ×2 (13:12→21:13)
--- NOTE | 2016-11-14 13:40 | RAD ---
PORTABLE CHEST ONE VIEW: 11/14/2016 11:12 a.m. HISTORY: Central line placement. COMPARISON: Exam from the previous day. FINDINGS: There has been interval placement of a right subclavian central line with the tip in the projection of the SVC. No pneumothorax is seen. The remainder of the exam is otherwise stable. This study was interpreted in consultation with Dr. Cristian Mitchell, who concurs. POS: [facility]
--- NOTE | 2016-11-14 16:50 | EKG ---
Test Reason : Blood Pressure : / mmHG Vent. Rate : 096 BPM Atrial Rate : 096 BPM P-R Int : 128 ms QRS Dur : 074 ms QT Int : 344 ms P-R-T Axes : 020 004 018 degrees QTc Int : 434 ms Normal sinus rhythm Normal ECG When compared with ECG of 24-OCT-2016 13:27, Borderline criteria for Inferior infarct are no longer Present Confirmed by Heri CAMARILLO ([id number]) on 11/14/2016 4:50:02 PM Referred By: RENZO Confirmed By:Heri CAMARILLO
--- NOTE | 2016-11-14 17:02 | EKG ---
Test Reason : ROUTINE Blood Pressure : / mmHG Vent. Rate : 121 BPM Atrial Rate : 121 BPM P-R Int : 118 ms QRS Dur : 074 ms QT Int : 298 ms P-R-T Axes : 025 -08 011 degrees QTc Int : 423 ms Sinus tachycardia Possible Lateral infarct , age undetermined Abnormal ECG When compared with ECG of 08-NOV-2016 11:42, (Unconfirmed) No significant change was found Confirmed by Heri CAMARILLO ([id number]) on 11/14/2016 5:01:58 PM Referred By: RENZO Confirmed By:Heri CAMARILLO
[2016-11-14] MEDS: POTASSIUM ACETATE IV SCH ×11 (22:30)
[2016-11-14] MEDS: FAT EMULSION IV SCH ×11 (22:30)
[2016-11-14] MEDS: [UNRECOGNIZED DRUG - OTHER] IV SCH ×11 (22:30)
[2016-11-14] MEDS: SODIUM ACETATE IV SCH ×11 (22:30)
[2016-11-15] MEDS: Meropenem 1 GM in Sodium Chloride 0.9% 100 ML IVPB SCH ×3 (04:50→20:01)
[2016-11-15 06:05] LABS: ALT (SGPT) 7 U/L (8-55); AST (SGOT) 15 U/L (5-34); Alkaline Phosphatase 100 U/L (40-150); Anion Gap 15 mmol/L (10-20); Bilirubin, Total 0.5 mg/dL (0.2-1.2); Calc. Creatinine Clearance 43 mL/min (70-130); Calcium 9.4 mg/dL (7.8-10.44); Carbon Dioxide 18 mmol/L (23-31); Chloride 99 mmol/L (98-107); Estimated GFR-MDRD 20; Globulin 4.2 g/dL (2.4-3.5); Protein, Total 6.4 g/dL (6.0-8.3)
[2016-11-15 06:16] LABS: BUN (Urea Nitrogen) 124 mg/dL (9.8-20.1)
[2016-11-15 06:35] LABS: #Eosinphils 0.5 thou/uL (0.0-0.7); #Lymphocytes 1.8 thou/uL (1.20-3.40); #Monocytes 1.2 thou/uL (0.11-0.59); #Neutrophils 10.8 thou/uL (1.40-6.50); %Basophils 0.3 % (0.0-1.0); %Eosinophils 3.2 % (0.0-10.0); %Lymphocytes 12.3 % (21.0-51.0); %Monocytes 8.5 % (0.0-10.0); Hematocrit 20.7 % (36.0-47.0); Mean Platelet Volume 8.1 fL (7.4-10.4); Red Blood Cell (RBC) Count 2.21 mill/uL (4.20-5.40); White Blood Cell (WBC) Count 14.3 thou/uL (4.8-10.8)
[2016-11-15] MEDS: Furosemide 40 MG TAB PO SCH (08:30)
[2016-11-15] MEDS ORDERED: ISOVUE-370 76%-LOCM 1 ML ONE (08:39)
[2016-11-15] MEDS: Pantoprazole 40 MG VIAL IVP SCH ×2 (09:13→20:02)
[2016-11-15] MEDS: Pregabalin 50 MG CAP PO SCH ×3 (09:13→20:05)
[2016-11-15] MEDS: Enoxaparin Sodium 40 MG/0.4 ML SYRINGE SC SCH (09:14)
[2016-11-15] MEDS ORDERED: Sodium Chloride 0.9% 1,000 ML IV SCH (09:15)
[2016-11-15 10:43] LABS: Vancomycin, Trough 29.2 ug/mL
[2016-11-15] MEDS: Vancomycin HCl 1 GM in Premix Bag 1 BAG IVPB SCH ×2 (11:18→22:16)
[2016-11-15] MEDS: Lactated Ringer's 1,000 ML IV SCH (11:19)
--- NOTE | 2016-11-15 12:17 | PDOC.PN ---
- Subjective Encounter Start Date: 11/15/16 Encounter Start Time: 07:50 pt is lethargic, hypotensive, sleepy and very weak, present bedside - Objective MAR Reviewed: Yes Vital Signs & Weight: Vital Signs (12 hours) Temp Pulse Resp BP Pulse Ox 11/15/16 09:21 90 101/65 11/15/16 08:28 98.0 F 92 14 92/53 L 94 L 11/15/16 06:45 90/50 L 11/15/16 05:02 98.8 F 94 16 92/56 L 94 L 11/15/16 02:20 100 Weight Admit Weight 224 lb 13.936 oz Weight 276 lb 10.882 oz Most Recent Monitor Data Heart Rate from ECG 94 NIBP 140/69 NIBP BP-Mean 91 Respiration from ECG 96 SpO2 96 I&O: 11/14/16 11/15/16 11/16/16 06:59 06:59 06:59 Intake Total 1370 2900 0 Balance 1370 2900 0 Result Diagrams: 11/15/16 06:15 11/15/16 05:00 Additional Labs: Accuchecks 11/15/16 11/15/16 11/14/16 05:00 00:17 17:45 POC Glucose 106 160 H 136 H Phys Exam - Physical Examination Constitutional: NAD HEENT: PERRLA, moist MMs, sclera anicteric Neck: no JVD, supple Respiratory: no wheezing, no rales, no rhonchi Cardiovascular: RRR, no significant murmur, no rub Gastrointestinal: soft, positive bowel sounds wound vac in place Musculoskeletal: no edema, pulses present Neurological: moves all 4 limbs Lymphatic: no nodes Deviation from normal: lethargic Skin: no rash, normal turgor Dx/Plan (1) SBO (small bowel obstruction) Code(s): K56.69 - OTHER INTESTINAL OBSTRUCTION Status: Acute Comment: s/p adhesiolysis (2) Diabetes type 2, controlled Code(s): E11.9 - TYPE 2 DIABETES MELLITUS WITHOUT COMPLICATIONS Status: Chronic (3) Dyslipidemia Code(s): E78.5 - HYPERLIPIDEMIA, UNSPECIFIED Status: Chronic (4) Hypertension Code(s): I10 - ESSENTIAL (PRIMARY) HYPERTENSION Status: Chronic (5) Morbid obesity with BMI of 40.0-44.9, adult Code(s): E66.01 - MORBID (SEVERE) OBESITY DUE TO EXCESS CALORIES; Z68.41 - BODY MASS INDEX (BMI) 40.0-44.9, ADULT Status: Chronic (6) Physical deconditioning Code(s): R53.81 - OTHER MALAISE Status: Acute (7) Acute kidney failure Status: Acute (8) Anemia Code(s): D64.9 - ANEMIA, UNSPECIFIED Status: Acute (9) Hyponatremia Code(s): E87.1 - HYPO-OSMOLALITY AND HYPONATREMIA Status: Acute (10) Hypotension Status: Acute (11) Left lower lobe pneumonia Code(s): J18.1 - LOBAR PNEUMONIA, UNSPECIFIED ORGANISM Status: Acute (12) UTI (urinary tract infection) Status: Acute - Plan cont current plan of care, plan discussed w/ family, ledesma catheter, continue antibiotics, PT/OT, social work manager, respiratory therapy, incentive spirometry * will consult nephrology for ANUM * will DC lisinopril, lasix, lyrica * will add meropenam and continue vancomycin * monitor closely * medication reviewed as below * symptomatic treatment * discussed with bedside * prognosis guarded. * consider transfusion Review of Systems - Review of Systems Other: not reliable due to lethargy - Medications/Allergies Allergies/Adverse Reactions: Allergies Allergy/AdvReac Type Severity Reaction Status Date / Time No Known Allergies Allergy Verified 10/24/16 06:40 Medications: Current Medications Acetaminophen (Tylenol) 1,000 mg PO Q6H PRN PRN Reason: Fever > 101 Last Admin: 11/13/16 19:02 Dose: 1,000 mg Albuterol/Ipratropium (Duoneb) 3 ml NEB Q4H PRN PRN Reason: Wheezing Dextrose/Water (Dextrose 50%) 25 gm SLOW IVP PRN PRN PRN Reason: Hypoglycemia Enoxaparin Sodium (Lovenox) 40 mg SC 0900 [facility] Last Admin: 11/15/16 09:14 Dose: 40 mg Glucagon (Glucagon) 1 mg IM PRN PRN PRN Reason: Hypoglycemia Hydralazine HCl (Apresoline) 10 mg SLOW IVP Q4H PRN PRN Reason: SBP > 170 or DBP > 100 Last Admin: 11/08/16 18:39 Dose: 10 mg Dextrose/Water (D5w) 1,000 mls @ 0 mls/hr IV .Q0M PRN; As Directed PRN Reason: Hypoglycemia Vancomycin HCl 1 gm/ Device 200 mls @ 200 mls/hr IVPB 1100,2300 [facility] Last Admin: 11/15/16 11:18 Dose: 200 mls Meropenem 1 gm/ Sodium (Chloride) 100 mls @ 200 mls/hr IVPB 0500,1300,2100 [facility] Last Admin: 11/15/16 04:50 Dose: 100 mls Lactated Ringer's (Lactated Ringer's) 1,000 mls @ 70 mls/hr IV .[id number] [facility] Last Admin: 11/15/16 11:19 Dose: 1,000 mls Fat Emulsion Intravenous 250 ml/ Sodium Acetate 100 meq/Potassium Acetate 40 meq /Potassium Phosphate 15 mmol/Calcium Gluconate 10 meq/Magnesium Sulfate 20 meq/ Insulin Human Regular 20 units / Multivitamins 10 ml/Chromium/Copper/Manganese/ Seleni/Zn 5 ml/ Sodium Chloride 30 meq/ Dextrose/Water/ Sterile Water/ Amino Acids 1,949.3652 mls @ 80.606 mls/hr IV 2200 [facility] Insulin Human Regular (Humulin R) 0 units SC .MODERATE SLIDING SC PRN; Protocol PRN Reason: MODERATE SLIDING SCALE Last Admin: 11/14/16 06:18 Dose: 2 unit Insulin Human Regular (Humulin R) 0 units SC .BEDTIME SLIDING SC PRN; Protocol PRN Reason: BEDTIME SLIDING SCALE Labetalol HCl (Normodyne) 20 mg SLOW IVP Q1H PRN PRN Reason: SBP Greater Than 180 Miscellaneous Medication (Pharmacy To Dose) 1 each IVPB PRN PRN PRN Reason: Pharmacy to dose Ondansetron HCl (Zofran) 4 mg IVP Q4H PRN PRN Reason: Nausea/Vomiting Last Admin: 11/14/16 08:05 Dose: 4 mg Pantoprazole Sodium (Protonix) 40 mg IVP Q12HR [facility] Last Admin: 11/15/16 09:13 Dose: 40 mg Pregabalin (Lyrica) 50 mg PO BID [facility] Last Admin: 11/15/16 10:19 Dose: Not Given Sodium Chloride (Flush - Normal Saline) 10 ml IVF Q12HR [facility] Last Admin: 11/15/16 10:19 Dose: 10 ml Sodium Chloride (Flush - Normal Saline) 10 ml IVF PRN PRN PRN Reason: Saline Flush Last Admin: 11/13/16 11:06 Dose: 10 ml
[2016-11-15 16:52] LABS: #Eosinphils 0.5 thou/uL (0.0-0.7); #Lymphocytes 1.5 thou/uL (1.20-3.40); #Monocytes 0.9 thou/uL (0.11-0.59); #Neutrophils 11.6 thou/uL (1.40-6.50); %Basophils 0.3 % (0.0-1.0); %Eosinophils 3.4 % (0.0-10.0); %Lymphocytes 10.3 % (21.0-51.0); %Monocytes 6.3 % (0.0-10.0); Hematocrit 27.5 % (36.0-47.0); Mean Platelet Volume 7.9 fL (7.4-10.4); Red Blood Cell (RBC) Count 2.99 mill/uL (4.20-5.40); White Blood Cell (WBC) Count 14.5 thou/uL (4.8-10.8)
[2016-11-15 17:16] LABS: Anion Gap 16 mmol/L (10-20); Calc. Creatinine Clearance 56 mL/min (70-130); Calcium 9.5 mg/dL (7.8-10.44); Carbon Dioxide 18 mmol/L (23-31); Chloride 99 mmol/L (98-107); Estimated GFR-MDRD 28
[2016-11-15 17:33] LABS: BUN (Urea Nitrogen) 130 mg/dL (9.8-20.1)
[2016-11-15] MEDS ORDERED: POTASSIUM ACETATE IV SCH ×12 (22:00)
[2016-11-15] MEDS ORDERED: [UNRECOGNIZED DRUG - OTHER] IV SCH ×12 (22:00)
[2016-11-15] MEDS ORDERED: FAT EMULSION IV SCH ×12 (22:00)
[2016-11-15] MEDS ORDERED: SODIUM ACETATE IV SCH ×12 (22:00)
[2016-11-15 22:04] LABS: Vancomycin, Random 28.5 ug/mL (See Comment)
[2016-11-15] MEDS: SODIUM ACETATE IV SCH ×12 (22:20)
[2016-11-15] MEDS: FAT EMULSION IV SCH ×12 (22:20)
[2016-11-15] MEDS: POTASSIUM ACETATE IV SCH ×12 (22:20)
[2016-11-15] MEDS: [UNRECOGNIZED DRUG - OTHER] IV SCH ×12 (22:20)
--- NOTE | 2016-11-15 23:31 | ULT ---
RENAL ULTRASOUND: 11/15/16 COMPARISON: None. HISTORY: Acute kidney injury with left flank pain. TECHNIQUE: Multiplanar lyons scale and color doppler images were obtained in a bilateral renal ultrasound. FINDINGS: There is a small cyst in the mid portion of the right kidney measuring 1.5 cm in greatest dimension. Both kidneys demonstrate normal cortical echogenicity without hydronephrosis or calculi and measure s 12.7 and 11.1 cm in length on the right and left, respectively. The urinary bladder was decompressed by Quick catheter. IMPRESSION: Right renal cyst. POS: [facility]
[2016-11-16] MEDS: Lactated Ringer's 1,000 ML IV SCH ×3 (01:17→22:15)
--- NOTE | 2016-11-16 04:09 | CON ---
DATE OF CONSULTATION: 11/15/2016 CONSULTING PHYSICIAN: Dr. Raymundo. REASON FOR CONSULTATION: Acute kidney injury. REASON FOR ADMISSION: Abdominal pain, nausea. HISTORY OF PRESENT ILLNESS: A 71-year-old obese female with history of hypertension, hyperlipidemia, type 2 diabetes, morbid obesity who came to the hospital with abdominal pain and has been treated for the last 20 days. Her creatinine on admission was 1.2 and got better to 1.09 and down to the baseline of 0.7. She was found to have a creatinine of 2.3 this morning and is got better to 1.7 on the rechecks this evening. After the IV fluids, she was profoundly hypotensive yesterday. She was also found to be hyponatremic. Per the family, she has marked making more urine. She had a Quick catheter also with almost 1 liter of urine today. The patient is more awake per the family. No chest pain or palpitation reported to me. PAST MEDICAL HISTORY: Positive for hypertension, hyperlipidemia, type 1 diabetes, morbid obesity, and degenerative joint disease. PAST SURGICAL HISTORY: Exploratory laparotomy, ventral hernia repair and knee replacement. ALLERGIES: No known drug allergies. HOME MEDICATIONS: Lyrica, Lasix, Actoplus, lisinopril, atorvastatin, tramadol, Myrbetriq. SOCIAL HISTORY: No smoking, alcohol or illicit drug abuse. FAMILY HISTORY: No history of any kidney disease. REVIEW OF SYSTEMS: The following complete review of systems was negative, unless otherwise mentioned in the HPI or below: Constitutional: Weight loss or gain, ability to conduct usual activities. Skin: Rash, itching. Eyes: Double vision, pain. ENT/Mouth: Nose bleeding, neck stiffness, pain, tenderness. Cardiovascular: Palpitations, dyspnea on exertion, orthopnea. Respiratory: Shortness of breath, wheezing, cough, hemoptysis, fever or night sweats. Gastrointestinal: Poor appetite, abdominal pain, heartburn, nausea, vomiting, constipation, or diarrhea. Genitourinary: Urgency, frequency, dysuria, nocturia. Musculoskeletal: Pain, swelling. Neurologic/Psychiatric: Anxiety, depression. Allergy/Immunologic: Skin rash, bleeding tendency. PHYSICAL EXAMINATION: GENERAL: This is an elderly female in no apparent distress. VITAL SIGNS: Temperature 98.3, pulse 82, respirations 18, blood pressure 138/ 70. HEENT: Atraumatic, normocephalic. Oral mucosa is moist. NECK: Supple, no masses. HEART: S1, S2 heard. Rate and rhythm regular. RESPIRATORY: Clear. GASTROINTESTINAL: Abdomen is soft. MUSCULOSKELETAL: No tenderness, no edema. DERMATOLOGIC: No skin rash. NEUROLOGIC: Awake, but not oriented well. LABORATORY DATA: Potassium is 4.1, BUN is 130 and creatinine is 1.7. ASSESSMENT AND PLAN: 1. Acute kidney injury. Renal function is getting better with hydration and possibly Quick. Avoid nephrotoxins. Recommend changing Lovenox to heparin. Monitor vancomycin level and hold the dose if level more than 20. Recommend changing lactated ringer to NS possible. 2. Edema - controlled. 3. Hypertension - will monitor. 4. Anemia - rule out bleed and monitor Hb level. Renal function seems to be getting better with IV hydration and antibiotic. Keep systolic more than 90, avoid nephrotoxins. Thank you for the consultation. We will check renal ultrasound. MTDD
[2016-11-16] MEDS: Meropenem 1 GM in Sodium Chloride 0.9% 100 ML IVPB SCH ×3 (05:06→20:15)
[2016-11-16 05:30] LABS: #Eosinphils 0.3 thou/uL (0.0-0.7); #Lymphocytes 0.9 thou/uL (1.20-3.40); #Monocytes 0.7 thou/uL (0.11-0.59); #Neutrophils 8.4 thou/uL (1.40-6.50); %Basophils 0.4 % (0.0-1.0); %Eosinophils 2.5 % (0.0-10.0); %Monocytes 6.6 % (0.0-10.0); Hematocrit 27.5 % (36.0-47.0); Mean Platelet Volume 8.5 fL (7.4-10.4); Red Blood Cell (RBC) Count 3.02 mill/uL (4.20-5.40); White Blood Cell (WBC) Count 10.3 thou/uL (4.8-10.8)
[2016-11-16 05:51] LABS: ALT (SGPT) Less than 7 U/L (8-55); AST (SGOT) 14 U/L (5-34); Alkaline Phosphatase 115 U/L (40-150); Anion Gap 14 mmol/L (10-20); BUN (Urea Nitrogen) 110 mg/dL (9.8-20.1); Bilirubin, Total 0.4 mg/dL (0.2-1.2); Calc. Creatinine Clearance 105 mL/min (70-130); Calcium 9.5 mg/dL (7.8-10.44); Carbon Dioxide 21 mmol/L (23-31); Chloride 103 mmol/L (98-107); Estimated GFR-MDRD 55; Globulin 4.3 g/dL (2.4-3.5); Magnesium 2.5 mg/dL (1.6-2.6); Phosphorus 3.5 mg/dL (2.3-4.7); Protein, Total 6.6 g/dL (6.0-8.3)
[2016-11-16] MEDS: Acetaminophen 500 MG TAB PO PRN (08:18)
[2016-11-16] MEDS: Pantoprazole 40 MG VIAL IVP SCH ×2 (08:18→20:16)
[2016-11-16] MEDS: Enoxaparin Sodium 40 MG/0.4 ML SYRINGE SC SCH (08:20)
[2016-11-16] MEDS: Pregabalin 50 MG CAP PO SCH ×2 (08:24→20:21)
--- NOTE | 2016-11-16 11:09 | PDOC.PN ---
- Subjective Encounter Start Date: 11/16/16 Encounter Start Time: 10:00 today renal function improved, no fever, very limited oral intake, very weak - Objective MAR Reviewed: Yes Vital Signs & Weight: Vital Signs (12 hours) Temp Pulse Resp BP Pulse Ox 11/16/16 08:55 98.4 F 107 H 20 163/74 H 99 11/16/16 08:00 98.4 F 107 H 20 99 11/16/16 04:46 99.4 F 104 H 16 146/81 H 94 L 11/16/16 00:24 98.8 F 100 16 131/70 98 Weight Admit Weight 224 lb 13.936 oz Weight 285 lb 1.6 oz Most Recent Monitor Data Heart Rate from ECG 94 NIBP 140/69 NIBP BP-Mean 91 Respiration from ECG 96 SpO2 96 I&O: 11/15/16 11/16/16 11/17/16 06:59 06:59 06:59 Intake Total 2900 2507 Output Total 3550 Balance 2900 -1043 Result Diagrams: 11/16/16 05:17 11/16/16 05:17 Additional Labs: Accuchecks 11/16/16 11/16/16 11/15/16 05:54 00:10 17:58 POC Glucose 161 H 133 H 139 H 11/15/16 12:23 POC Glucose 155 H Phys Exam - Physical Examination Constitutional: NAD HEENT: PERRLA, moist MMs, sclera anicteric Neck: no JVD, supple Respiratory: no wheezing, no rales, no rhonchi central line Cardiovascular: RRR, no significant murmur, no rub Gastrointestinal: soft wound vac+ Musculoskeletal: no edema, pulses present ledesma+ Neurological: non-focal, normal sensation Lymphatic: no nodes Psychiatric: normal affect Skin: no rash, normal turgor Dx/Plan (1) SBO (small bowel obstruction) Code(s): K56.69 - OTHER INTESTINAL OBSTRUCTION Status: Acute Comment: s/p adhesiolysis (2) Diabetes type 2, controlled Code(s): E11.9 - TYPE 2 DIABETES MELLITUS WITHOUT COMPLICATIONS Status: Chronic (3) Dyslipidemia Code(s): E78.5 - HYPERLIPIDEMIA, UNSPECIFIED Status: Chronic (4) Hypertension Code(s): I10 - ESSENTIAL (PRIMARY) HYPERTENSION Status: Chronic (5) Morbid obesity with BMI of 40.0-44.9, adult Code(s): E66.01 - MORBID (SEVERE) OBESITY DUE TO EXCESS CALORIES; Z68.41 - BODY MASS INDEX (BMI) 40.0-44.9, ADULT Status: Chronic (6) Physical deconditioning Code(s): R53.81 - OTHER MALAISE Status: Acute (7) Acute kidney failure Status: Resolved (8) Anemia Code(s): D64.9 - ANEMIA, UNSPECIFIED Status: Acute (9) Hyponatremia Code(s): E87.1 - HYPO-OSMOLALITY AND HYPONATREMIA Status: Acute (10) Hypotension Status: Acute (11) Left lower lobe pneumonia Code(s): J18.1 - LOBAR PNEUMONIA, UNSPECIFIED ORGANISM Status: Acute (12) UTI (urinary tract infection) Status: Acute - Plan cont current plan of care, plan discussed w/ family, continue antibiotics, PT/OT , social services technician * so far 9 unit prbc given * continue meropenam and vancomycin * wbc improved * renal function improved * wound care * continue TPN * will need placement * medication reviewed as below * symptomatic treatment. Review of Systems - Review of Systems Constitutional: Weakness, Malaise. negative: Fever, Chills, Sweats, Other ENT: negative: Ear Pain, Ear Discharge, Nose Pain, Nose Discharge, Nose Congestion, Mouth Pain, Mouth Swelling, Throat Pain, Throat Swelling, Other Respiratory: negative: Cough, Dry, Shortness of Breath, Hemoptysis, SOB with Excertion, Pleuritic Pain, Sputum, Wheezing Cardiovascular: negative: Chest Pain, Palpitations, Orthopnea, Paroxysmal Noc. Dyspnea, Edema, Light Headedness, Other Gastrointestinal: negative: Nausea, Vomiting, Abdominal Pain, Diarrhea, Constipation, Melena, Hematochezia, Other Genitourinary: negative: Dysuria, Frequency, Incontinence, Hematuria, Retention , Other Musculoskeletal: negative: Neck Pain, Shoulder Pain, Arm Pain, Back Pain, Hand Pain, Leg Pain, Foot Pain, Other - Medications/Allergies Allergies/Adverse Reactions: Allergies Allergy/AdvReac Type Severity Reaction Status Date / Time No Known Allergies Allergy Verified 10/24/16 06:40 Medications: Current Medications Acetaminophen (Tylenol) 1,000 mg PO Q6H PRN PRN Reason: Fever > 101 Last Admin: 11/16/16 08:18 Dose: 1,000 mg Albuterol/Ipratropium (Duoneb) 3 ml NEB Q4H PRN PRN Reason: Wheezing Dextrose/Water (Dextrose 50%) 25 gm SLOW IVP PRN PRN PRN Reason: Hypoglycemia Enoxaparin Sodium (Lovenox) 40 mg SC 0900 [facility] [place] Last Admin: 11/16/16 08:20 Dose: 40 mg Glucagon (Glucagon) 1 mg IM PRN PRN PRN Reason: Hypoglycemia Hydralazine HCl (Apresoline) 10 mg SLOW IVP Q4H PRN PRN Reason: SBP > 170 or DBP > 100 Last Admin: 11/08/16 18:39 Dose: 10 mg Dextrose/Water (D5w) 1,000 mls @ 0 mls/hr IV .Q0M PRN; As Directed PRN Reason: Hypoglycemia Meropenem 1 gm/ Sodium (Chloride) 100 mls @ 200 mls/hr IVPB 0500,1300,2100 [facility] [place] Last Admin: 11/16/16 05:06 Dose: 100 mls Lactated Ringer's (Lactated Ringer's) 1,000 mls @ 70 mls/hr IV .[id number] [facility] [place] Last Admin: 11/16/16 04:46 Dose: 1,000 mls Fat Emulsion Intravenous 250 ml/ Sodium Acetate 100 meq/Potassium Acetate 40 meq /Potassium Phosphate 15 mmol/Calcium Gluconate 10 meq/Magnesium Sulfate 20 meq/ Insulin Human Regular 20 units / Multivitamins 10 ml/Chromium/Copper/Manganese/ Seleni/Zn 5 ml/ Sodium Chloride 30 meq/ Dextrose/Water/ Sterile Water/ Amino Acids 1,949.3652 mls @ 80.606 mls/hr IV 2200 [facility] [place] Last Admin: 11/15/16 22:20 Dose: 1,949.3652 mls Vancomycin HCl 1.25 gm/ Sodium (Chloride) 250 mls @ 166.667 mls/hr IVPB Q24HR [facility] [place] Insulin Human Regular (Humulin R) 0 units SC .MODERATE SLIDING SC PRN; Protocol PRN Reason: MODERATE SLIDING SCALE Last Admin: 11/14/16 06:18 Dose: 2 unit Insulin Human Regular (Humulin R) 0 units SC .BEDTIME SLIDING SC PRN; Protocol PRN Reason: BEDTIME SLIDING SCALE Labetalol HCl (Normodyne) 20 mg SLOW IVP Q1H PRN PRN Reason: SBP Greater Than 180 Miscellaneous Medication (Pharmacy To Dose) 1 each IVPB PRN PRN PRN Reason: Pharmacy to dose Miscellaneous Medication (Pharmacy To Dose) 0 each IVPB PRN PRN PRN Reason: [facility] Pharmacy to Dose Ondansetron HCl (Zofran) 4 mg IVP Q4H PRN PRN Reason: Nausea/Vomiting Last Admin: 11/14/16 08:05 Dose: 4 mg Pantoprazole Sodium (Protonix) 40 mg IVP Q12HR [facility] Last Admin: 11/16/16 08:18 Dose: 40 mg Pregabalin (Lyrica) 50 mg PO BID [facility] Last Admin: 11/16/16 08:24 Dose: Not Given Sodium Chloride (Flush - Normal Saline) 10 ml IVF Q12HR [facility] Last Admin: 11/16/16 08:18 Dose: 10 ml Sodium Chloride (Flush - Normal Saline) 10 ml IVF PRN PRN PRN Reason: Saline Flush Last Admin: 11/13/16 11:06 Dose: 10 ml
[2016-11-16] MEDS: Insulin Regular 300 UNITS/3 ML VIAL SC PRN ×2 (12:25→18:45)
--- NOTE | 2016-11-16 14:49 | CT ---
CT ABDOMEN AND PELVIS WITH IV CONTRAST: INDICATIONS: Concern for obstruction. COMPARISON: Prior exam dated 10/24/[address] examination of the chest, abdomen, and pelvis dated 11/10/2016. FINDINGS: There are small bilateral pleural effusions and bibasilar atelectasis. There has been interval development of a peripherally enhancing fluid collections within the anterio r aspect of the abdominal cavity, measuring 12.2 x 2.3 x 10.7 cm. This is seen just superior to the patient's small bowel anastomosis, which is to the right of midline, within the central abdomen. There is an additional peripheral enhancing fluid collection within the left upper quadrant of the a bdomen, just deep to the splenic flexure, measuring 4.7 x 7.2 cm. There are a few mildly prominent loops of small bowel within the central abdomen, which are most floresita picious for ileus. No free air is demonstrated. A moderate amount of fluid and gas is present with in the lumen of the colon. The bladder is partially decompressed with a Quick catheter. There are calcified granuloma within the liver and spleen. The adrenal glands and kidneys are normal appearin g. There is scattered degenerative and osteoarthritic change. IMPRESSION: 1. Two separate intraabdominal abscesses that have developed in the interval since the prior examin ation. These are amenable to percutaneous drainage by CT. Findings were called to Dr. Raza at 1 :45 p.m. on 11/16/2016. 2. Mild small bowel ileus within the central abdomen. 3. Small bilateral pleural effusions and bibasilar atelectasis. 4. Findings of prior granulomatous disease. 5. Quick catheter. CODE CR POS: PADILLA
[2016-11-16] MEDS ORDERED: Midazolam HCl 2 mg/2 ml Vial ONE (15:00)
[2016-11-16] MEDS ORDERED: Sodium Bicarbonate 2.4 MEQ/5 ML ONE (15:39)
[2016-11-16 17:15] LABS: BF Reference Range Comment Note:
[2016-11-16 17:15] LABS: BF Reference Range Comment Note:
[2016-11-16 17:38] LABS: BF Color Brown
[2016-11-16 17:39] LABS: RBC Count-Automated 38000 /cumm
[2016-11-16 17:39] LABS: BF Color Brown
[2016-11-16 17:40] LABS: RBC Count-Automated 28000 /cumm
[2016-11-16 19:11] LABS: Number Cells Counted-Fluids 100
[2016-11-16 19:15] LABS: Number Cells Counted-Fluids 100
--- NOTE | 2016-11-16 19:36 | CT ---
HISTORY: Left sided intraperitoneal abscess. Informed consent was obtained from the patient. The left intra-abdominal abscess was localized using CT guidance. The overlying skin was prepped and draped in the usual sterile manner. 1% lidocaine so lution was used to anesthetize the overlying soft tissues. A small dermatotomy was made. An outer 5 Burkinan Yueh needle was placed under CT guidance into the left intra-abdominal collection. An O.035 A mplatz wire was introduced. The tract was dilated using a 5 Burkinan dilator. An 8 Burkinan all purpose drainage catheter was placed over the wire into the left peritoneal collection. IMPRESSION: Successful CT guided left peritoneal abscess drainage. POS: HIEU
--- NOTE | 2016-11-16 19:42 | CT ---
HISTORY: Right sided abdominal abscess. CT GUIDED ABSCESS DRAINAGE: 11/16/16 Informed consent was obtained from the patient. The intra-abdominal abscess was localized using CT g uidance. The overlying skin was prepped and draped in the usual sterile manner. A 1% lidocaine solut ion was used to anesthetize the overlying soft tissues. A small dermatomy was made. A 5 Guinean Yueh needle was placed into the peritoneal collection. An 0.035 wire was introduced. The tract was dilate d using an 8 Guinean dilator. An 8 Guinean all purpose drainage catheter was placed over the wire into the peritoneal collection. No complications encouraged during the course of the exam. IMPRESSION: Successful CT guided right sided peritoneal fluid collection drainage. Pathology of specimen is pend ing. POS: HIEU
[2016-11-16 21:05] LABS: Vancomycin, Random 14.8 ug/mL (See Comment)
--- NOTE | 2016-11-16 22:01 | PRG ---
DATE OF SERVICE: 11/16/2016 SUBJECTIVE: Patient was seen and examined at bedside and overnight events noted. Patient denies an y shortness of breath or chest pain or palpitation. No history of nausea or vomiting or diarrhea or fever or chills or cramps. OBJECTIVE: GENERAL: This is an elderly female, who is lethargic. VITAL SIGNS: Temperature 98.5, pulse 93, respiratory rate 18, blood pressure 160/70. HEENT: Atraumatic, normocephalic. Oral mucosa is moist. NECK: Supple. CARDIOVASCULAR: S1, S2 heard. Rate and rhythm regular. RESPIRATORY: Clear to auscultation. GASTROINTESTINAL: Abdomen is soft. MUSCULOSKELETAL: No tenderness, no edema. DERMATOLOGIC: No skin rash. NEUROLOGIC: Alert and awake and oriented x3. No focal neurologic deficits. Moving all the extremi ties. PSYCHIATRIC: Mood and affect normal. LABORATORY DATA: Potassium is 4.2, BUN is 110, creatinine is 0.9. ASSESSMENT AND PLAN: 1. Acute kidney injury. Creatinine is much better and back to baseline. 2. Azotemia with elevated BUN. We will continue on intravenous fluids as tolerated. 3. Edema, currently stable. 4. Anemia, rule out any bleed. 5. Renal ultrasound done yesterday with right renal cyst and renal chronic disease reported. Abdom inal CT shows intraabdominal abscess. We will continue to follow. Avoid nephrotoxins.
[2016-11-16] MEDS: FAT EMULSION IV SCH ×12 (22:10)
[2016-11-16] MEDS: [UNRECOGNIZED DRUG - OTHER] IV SCH ×12 (22:10)
[2016-11-16] MEDS: POTASSIUM ACETATE IV SCH ×12 (22:10)
[2016-11-16] MEDS: SODIUM ACETATE IV SCH ×12 (22:10)
[2016-11-16] MEDS: Vancomycin HCl 1.25 GM in Sodium Chloride 0.9% 250 ML 250 ML IVPB SCH (22:14)
[2016-11-17] MEDS: Meropenem 1 GM in Sodium Chloride 0.9% 100 ML IVPB SCH ×3 (05:22→22:41)
[2016-11-17 09:23] LABS: Band 16 % (5-11); Hematocrit 31.7 % (36.0-47.0); Mean Platelet Volume 9.4 fL (7.4-10.4); Myelocyte 4 % (0-0); Neutrophil 60 % (42-75); Polychromasia SLIGHT = 2-3 cells (100X) (0-2/hpf); Red Blood Cell (RBC) Count 3.45 mill/uL (4.20-5.40); White Blood Cell (WBC) Count 10.1 thou/uL (4.8-10.8)
[2016-11-17] MEDS: Enoxaparin Sodium 40 MG/0.4 ML SYRINGE SC SCH (09:25)
[2016-11-17] MEDS: Pantoprazole 40 MG VIAL IVP SCH ×2 (09:25→22:39)
[2016-11-17] MEDS: Pregabalin 50 MG CAP PO SCH ×2 (09:25→22:42)
--- NOTE | 2016-11-17 10:15 | PDOC.PN ---
- Subjective Encounter Start Date: 11/17/16 Encounter Start Time: 07:10 pt has diarrhoea, weak, very poor po intake, on TPN - Objective MAR Reviewed: Yes Vital Signs & Weight: Vital Signs (12 hours) Temp Pulse Resp BP Pulse Ox 11/17/16 07:38 97.5 F L 115 H 20 182/84 H 95 11/17/16 04:00 97.5 F L 106 H 20 166/78 H 95 11/17/16 00:00 99.7 F H 110 H 20 163/88 H 94 L Weight Admit Weight 224 lb 13.936 oz Weight 255 lb 14.4 oz Most Recent Monitor Data Heart Rate from ECG 94 NIBP 140/69 NIBP BP-Mean 91 Respiration from ECG 96 SpO2 96 I&O: 11/16/16 11/17/16 11/18/16 06:59 06:59 06:59 Intake Total 2507 1800 Output Total 3550 5050 Balance -6423 -9042 Result Diagrams: 11/17/16 06:26 11/16/16 05:17 Additional Labs: Accuchecks 11/17/16 11/17/16 11/16/16 05:28 01:38 18:10 POC Glucose 183 H 206 H 163 H 11/16/16 11:47 POC Glucose 185 H Radiology Reviewed by me: Yes Phys Exam - Physical Examination Constitutional: NAD HEENT: PERRLA, moist MMs, sclera anicteric Neck: no JVD, supple Respiratory: no wheezing, no rales, no rhonchi Cardiovascular: RRR, no significant murmur, no rub Gastrointestinal: soft, no distention, positive bowel sounds wound vac in place, drain in place Musculoskeletal: no edema, pulses present Neurological: non-focal Lymphatic: no nodes Psychiatric: normal affect Skin: no rash, normal turgor Dx/Plan (1) SBO (small bowel obstruction) Code(s): K56.69 - OTHER INTESTINAL OBSTRUCTION Status: Acute Comment: s/p adhesiolysis (2) Diabetes type 2, controlled Code(s): E11.9 - TYPE 2 DIABETES MELLITUS WITHOUT COMPLICATIONS Status: Chronic (3) Dyslipidemia Code(s): E78.5 - HYPERLIPIDEMIA, UNSPECIFIED Status: Chronic (4) Hypertension Code(s): I10 - ESSENTIAL (PRIMARY) HYPERTENSION Status: Chronic (5) Morbid obesity with BMI of 40.0-44.9, adult Code(s): E66.01 - MORBID (SEVERE) OBESITY DUE TO EXCESS CALORIES; Z68.41 - BODY MASS INDEX (BMI) 40.0-44.9, ADULT Status: Chronic (6) Physical deconditioning Code(s): R53.81 - OTHER MALAISE Status: Acute (7) Acute kidney failure Status: Resolved (8) Anemia Code(s): D64.9 - ANEMIA, UNSPECIFIED Status: Acute (9) Hyponatremia Code(s): E87.1 - HYPO-OSMOLALITY AND HYPONATREMIA Status: Acute (10) Hypotension Status: Acute (11) Left lower lobe pneumonia Code(s): J18.1 - LOBAR PNEUMONIA, UNSPECIFIED ORGANISM Status: Acute (12) UTI (urinary tract infection) Status: Acute (13) Abdominal abscess Code(s): K65.1 - PERITONEAL ABSCESS Status: Acute - Plan cont current plan of care, plan discussed w/ family, continue antibiotics, PT/OT , social studies teacher, speech therapy * for diarrhoea, will check c-diff as pt has been on antibiotics and has bandemia * continue TPN * pt is not ready for discharge yet * medication reviewed as below * symptomatic treatment. * eventual placement to rehab or swing bed. Review of Systems - Review of Systems Constitutional: Weakness, Malaise. negative: Fever, Chills, Sweats, Other ENT: negative: Ear Pain, Ear Discharge, Nose Pain, Nose Discharge, Nose Congestion, Mouth Pain, Mouth Swelling, Throat Pain, Throat Swelling, Other Respiratory: negative: Cough, Dry, Shortness of Breath, Hemoptysis, SOB with Excertion, Pleuritic Pain, Sputum, Wheezing Cardiovascular: negative: Chest Pain, Palpitations, Orthopnea, Paroxysmal Noc. Dyspnea, Edema, Light Headedness, Other Gastrointestinal: Diarrhea. negative: Nausea, Vomiting, Abdominal Pain, Constipation, Melena, Hematochezia, Other Genitourinary: negative: Dysuria, Frequency, Incontinence, Hematuria, Retention , Other Musculoskeletal: negative: Neck Pain, Shoulder Pain, Arm Pain, Back Pain, Hand Pain, Leg Pain, Foot Pain, Other - Medications/Allergies Allergies/Adverse Reactions: Allergies Allergy/AdvReac Type Severity Reaction Status Date / Time No Known Allergies Allergy Verified 10/24/16 06:40 Medications: Current Medications Acetaminophen (Tylenol) 1,000 mg PO Q6H PRN PRN Reason: Fever > 101 Last Admin: 11/16/16 08:18 Dose: 1,000 mg Albuterol/Ipratropium (Duoneb) 3 ml NEB Q4H PRN PRN Reason: Wheezing Dextrose/Water (Dextrose 50%) 25 gm SLOW IVP PRN PRN PRN Reason: Hypoglycemia Enoxaparin Sodium (Lovenox) 40 mg SC 0900 [facility] Last Admin: 11/17/16 09:25 Dose: 40 mg Glucagon (Glucagon) 1 mg IM PRN PRN PRN Reason: Hypoglycemia Hydralazine HCl (Apresoline) 10 mg SLOW IVP Q4H PRN PRN Reason: SBP > 170 or DBP > 100 Last Admin: 11/08/16 18:39 Dose: 10 mg Dextrose/Water (D5w) 1,000 mls @ 0 mls/hr IV .Q0M PRN; As Directed PRN Reason: Hypoglycemia Meropenem 1 gm/ Sodium (Chloride) 100 mls @ 200 mls/hr IVPB 0500,1300,2100 [facility] Last Admin: 11/17/16 05:22 Dose: 100 mls Lactated Ringer's (Lactated Ringer's) 1,000 mls @ 70 mls/hr IV .[id number] [facility] Last Admin: 11/16/16 22:15 Dose: 1,000 mls Fat Emulsion Intravenous 250 ml/ Sodium Acetate 100 meq/Potassium Acetate 40 meq /Potassium Phosphate 15 mmol/Calcium Gluconate 10 meq/Magnesium Sulfate 20 meq/ Insulin Human Regular 20 units / Multivitamins 10 ml/Chromium/Copper/Manganese/ Seleni/Zn 5 ml/ Sodium Chloride 30 meq/ Dextrose/Water/ Sterile Water/ Amino Acids 1,949.3652 mls @ 80.606 mls/hr IV 2200 [facility] Last Admin: 11/16/16 22:10 Dose: 1,949.3652 mls Vancomycin HCl 1.25 gm/ Sodium (Chloride) 250 mls @ 166.667 mls/hr IVPB Q24HR [facility] Last Admin: 11/16/16 22:14 Dose: 250 mls Insulin Human Regular (Humulin R) 0 units SC .MODERATE SLIDING SC PRN; Protocol PRN Reason: MODERATE SLIDING SCALE Last Admin: 11/16/16 18:45 Dose: 2 unit Insulin Human Regular (Humulin R) 0 units SC .BEDTIME SLIDING SC PRN; Protocol PRN Reason: BEDTIME SLIDING SCALE Labetalol HCl (Normodyne) 20 mg SLOW IVP Q1H PRN PRN Reason: SBP Greater Than 180 Miscellaneous Medication (Pharmacy To Dose) 0 each IVPB PRN PRN PRN Reason: [facility] Pharmacy to Dose Ondansetron HCl (Zofran) 4 mg IVP Q4H PRN PRN Reason: Nausea/Vomiting Last Admin: 11/14/16 08:05 Dose: 4 mg Pantoprazole Sodium (Protonix) 40 mg IVP Q12HR [facility] Last Admin: 11/17/16 09:25 Dose: 40 mg Pregabalin (Lyrica) 50 mg PO BID [facility] Last Admin: 11/17/16 09:25 Dose: Not Given Sodium Chloride (Flush - Normal Saline) 10 ml IVF Q12HR [facility] Last Admin: 11/17/16 09:25 Dose: 10 ml Sodium Chloride (Flush - Normal Saline) 10 ml IVF PRN PRN PRN Reason: Saline Flush Last Admin: 11/13/16 11:06 Dose: 10 ml
--- NOTE | 2016-11-17 12:12 | PRG ---
DATE OF SERVICE: 11/17/2016 SUBJECTIVE: The patient is complaining of nausea this morning. Son and are at the bedside. OBJECTIVE: GENERAL: This is a well-built female in mild distress. VITAL SIGNS: Temperature 97.5, pulse 115, respiratory rate 18, blood pressure 180/84. HEENT: Atraumatic, normocephalic. Oral mucosa is moist. NECK: Supple. CARDIOVASCULAR: S1 and S2 heard, rate and rhythm regular. RESPIRATORY: Clear to auscultation. GASTROINTESTINAL: Abdomen is soft. MUSCULOSKELETAL: No tenderness, no edema. DERMATOLOGIC: No skin rash. NEUROLOGIC: Alert and awake and oriented X3. No focal neurologic deficits. Moving all the extremi ties. PSYCHIATRIC: Mood and affect normal. LABORATORY DATA: No labs done today. ASSESSMENT AND PLAN: 1. Acute kidney injury is getting better. Repeat labs. 2. Azotemia. We will have repeat labs to check on BUN. 3. Edema. 4. Anemia. 5. Hypertension, stable. 6. Morbid obesity. 7. Check labs and monitor.
[2016-11-17] MEDS: Insulin Regular 300 UNITS/3 ML VIAL SC PRN (12:20)
[2016-11-17] MEDS: Acetaminophen 500 MG TAB PO PRN (22:44)
[2016-11-17] MEDS: SODIUM ACETATE IV SCH ×12 (22:57)
[2016-11-17] MEDS: FAT EMULSION IV SCH ×12 (22:57)
[2016-11-17] MEDS: [UNRECOGNIZED DRUG - OTHER] IV SCH ×12 (22:57)
[2016-11-17] MEDS: POTASSIUM ACETATE IV SCH ×12 (22:57)
[2016-11-17] MEDS: Vancomycin HCl 1.25 GM in Sodium Chloride 0.9% 250 ML 250 ML IVPB SCH (23:20)
[2016-11-18] MEDS: Meropenem 1 GM in Sodium Chloride 0.9% 100 ML IVPB SCH ×3 (05:25→20:36)
[2016-11-18] MEDS: Acetaminophen 500 MG TAB PO PRN ×2 (05:52→17:25)
[2016-11-18] MEDS: Insulin Regular 300 UNITS/3 ML VIAL SC PRN ×3 (05:53→17:40)
[2016-11-18 06:37] LABS: Band 3 % (5-11); Hematocrit 32.6 % (36.0-47.0); Mean Platelet Volume 7.5 fL (7.4-10.4); Metamyelocyte 1 % (0-0); Myelocyte 2 % (0-0); Neutrophil 69 % (42-75); Red Blood Cell (RBC) Count 3.55 mill/uL (4.20-5.40); White Blood Cell (WBC) Count 11.4 thou/uL (4.8-10.8)
[2016-11-18 06:42] LABS: Anion Gap 14 mmol/L (10-20); BUN (Urea Nitrogen) 41 mg/dL (9.8-20.1); Calc. Creatinine Clearance 163 mL/min (70-130); Calcium 9.9 mg/dL (7.8-10.44); Carbon Dioxide 28 mmol/L (23-31); Chloride 106 mmol/L (98-107); Estimated GFR-MDRD Greater than 90
[2016-11-18] MEDS: Pregabalin 50 MG CAP PO SCH ×2 (08:41→20:38)
[2016-11-18] MEDS: Enoxaparin Sodium 40 MG/0.4 ML SYRINGE SC SCH (08:41)
[2016-11-18] MEDS: Pantoprazole 40 MG VIAL IVP SCH ×2 (08:41→20:36)
--- NOTE | 2016-11-18 10:12 | PRG ---
DATE OF SERVICE: 11/18/2016 SUBJECTIVE: Ms. Walton has no complaints today. She has been on some liquids. OBJECTIVE: VITAL SIGNS: Blood pressure 160/89, pulse 100, respirations 18, temperature 97.6. GENERAL: She did have a bowel movement. Urine output is adequate. Percutaneous drained 40 and 35 for the day. ABDOMEN: Soft. Wound VAC is in place. LABORATORY DATA: White blood cell count is 11, hemoglobin 10, creatinine 0.57. ASSESSMENT: Slow resolution of ileus status post exploratory laparotomy, lysis of adhesions, extens juan. PLAN: Continue liquid diet for now. Potentially advance to full liquid diet tomorrow if doing well . Status post percutaneous drainage of nonpurulent non-enteric contents, stable.
--- NOTE | 2016-11-18 11:38 | PDOC.PN ---
- Subjective Encounter Start Date: 11/18/16 Encounter Start Time: 07:30 less diarrhoea, no fever, very weak, very poor po intake - Objective MAR Reviewed: Yes Vital Signs & Weight: Vital Signs (12 hours) Temp Pulse Resp BP Pulse Ox 11/18/16 08:57 97.6 F 100 18 93 L 11/18/16 08:46 97.6 F 100 18 160/89 H 93 L 11/18/16 04:47 99.3 F 99 16 161/81 H 92 L 11/18/16 00:19 99.9 F H 113 H 18 169/93 H 94 L Weight Admit Weight 224 lb 13.936 oz Weight 255 lb 14.4 oz Most Recent Monitor Data Heart Rate from ECG 94 NIBP 140/69 NIBP BP-Mean 91 Respiration from ECG 96 SpO2 96 I&O: 11/17/16 11/18/16 11/19/16 06:59 06:59 06:59 Intake Total 1800 1807 Output Total 5050 2875 Balance -5200 -9514 Result Diagrams: 11/18/16 05:40 11/18/16 05:40 Additional Labs: Accuchecks 11/18/16 11/17/16 11/17/16 05:33 23:57 18:14 POC Glucose 179 H 192 H 176 H 11/17/16 11:31 POC Glucose 198 H Phys Exam - Physical Examination Constitutional: NAD HEENT: moist MMs, sclera anicteric Neck: no JVD, supple central line Respiratory: no wheezing, no rales, no rhonchi reduce air entry at base Cardiovascular: RRR, no significant murmur, no rub Gastrointestinal: soft wound vac in place, [address] Musculoskeletal: no edema, pulses present Neurological: non-focal Lymphatic: no nodes Psychiatric: normal affect Skin: no rash, normal turgor Dx/Plan (1) SBO (small bowel obstruction) Code(s): K56.69 - OTHER INTESTINAL OBSTRUCTION Status: Acute Comment: s/p adhesiolysis (2) Diabetes type 2, controlled Code(s): E11.9 - TYPE 2 DIABETES MELLITUS WITHOUT COMPLICATIONS Status: Chronic (3) Dyslipidemia Code(s): E78.5 - HYPERLIPIDEMIA, UNSPECIFIED Status: Chronic (4) Hypertension Code(s): I10 - ESSENTIAL (PRIMARY) HYPERTENSION Status: Chronic (5) Morbid obesity with BMI of 40.0-44.9, adult Code(s): E66.01 - MORBID (SEVERE) OBESITY DUE TO EXCESS CALORIES; Z68.41 - BODY MASS INDEX (BMI) 40.0-44.9, ADULT Status: Chronic (6) Physical deconditioning Code(s): R53.81 - OTHER MALAISE Status: Acute (7) Acute kidney failure Status: Resolved (8) Anemia Code(s): D64.9 - ANEMIA, UNSPECIFIED Status: Acute (9) Hyponatremia Code(s): E87.1 - HYPO-OSMOLALITY AND HYPONATREMIA Status: Acute (10) Hypotension Status: Acute (11) Left lower lobe pneumonia Code(s): J18.1 - LOBAR PNEUMONIA, UNSPECIFIED ORGANISM Status: Acute (12) UTI (urinary tract infection) Status: Acute (13) Abdominal abscess Code(s): K65.1 - PERITONEAL ABSCESS Status: Acute (14) C. difficile diarrhea Code(s): A04.7 - ENTEROCOLITIS DUE TO CLOSTRIDIUM DIFFICILE Status: Acute - Plan cont current plan of care, continue antibiotics * continue wound care with wound vac * drain care * continue current iv antibiotics, meropenam and vancomycin * will add flagyl * medication reviewed as below * symptomatic treatment. * continue TPN * diet as tolerated. Review of Systems - Review of Systems Constitutional: Weakness. negative: Fever, Chills, Sweats, Malaise, Other Respiratory: negative: Cough, Dry, Shortness of Breath, Hemoptysis, SOB with Excertion, Pleuritic Pain, Sputum, Wheezing Cardiovascular: negative: Chest Pain, Palpitations, Orthopnea, Paroxysmal Noc. Dyspnea, Edema, Light Headedness, Other Gastrointestinal: Diarrhea. negative: Nausea, Vomiting, Abdominal Pain, Constipation, Melena, Hematochezia, Other Genitourinary: negative: Dysuria, Frequency, Incontinence, Hematuria, Retention , Other Musculoskeletal: negative: Neck Pain, Shoulder Pain, Arm Pain, Back Pain, Hand Pain, Leg Pain, Foot Pain, Other - Medications/Allergies Allergies/Adverse Reactions: Allergies Allergy/AdvReac Type Severity Reaction Status Date / Time No Known Allergies Allergy Verified 10/24/16 06:40 Medications: Current Medications Acetaminophen (Tylenol) 1,000 mg PO Q6H PRN PRN Reason: Fever > 101 Last Admin: 11/18/16 05:52 Dose: 1,000 mg Albuterol/Ipratropium (Duoneb) 3 ml NEB Q4H PRN PRN Reason: Wheezing Dextrose/Water (Dextrose 50%) 25 gm SLOW IVP PRN PRN PRN Reason: Hypoglycemia Enoxaparin Sodium (Lovenox) 40 mg SC 0900 [facility] Last Admin: 11/18/16 08:41 Dose: 40 mg Glucagon (Glucagon) 1 mg IM PRN PRN PRN Reason: Hypoglycemia Hydralazine HCl (Apresoline) 10 mg SLOW IVP Q4H PRN PRN Reason: SBP > 170 or DBP > 100 Last Admin: 11/17/16 19:49 Dose: 10 mg Dextrose/Water (D5w) 1,000 mls @ 0 mls/hr IV .Q0M PRN; As Directed PRN Reason: Hypoglycemia Meropenem 1 gm/ Sodium (Chloride) 100 mls @ 200 mls/hr IVPB 0500,1300,2100 [facility] Last Admin: 11/18/16 05:25 Dose: 100 mls Lactated Ringer's (Lactated Ringer's) 1,000 mls @ 0 mls/hr IV .Q0M [facility] PRN Reason: As Directed Last Admin: 11/16/16 22:15 Dose: 1,000 mls Fat Emulsion Intravenous 250 ml/ Sodium Acetate 100 meq/Potassium Acetate 40 meq /Potassium Phosphate 15 mmol/Calcium Gluconate 10 meq/Magnesium Sulfate 20 meq/ Insulin Human Regular 20 units / Multivitamins 10 ml/Chromium/Copper/Manganese/ Seleni/Zn 5 ml/ Sodium Chloride 30 meq/ Dextrose/Water/ Sterile Water/ Amino Acids 1,949.3652 mls @ 80.606 mls/hr IV 2200 [facility] Last Admin: 11/17/16 22:57 Dose: 1,949.3652 mls Vancomycin HCl 1.25 gm/ Sodium (Chloride) 250 mls @ 166.667 mls/hr IVPB Q24HR [facility] Last Admin: 11/17/16 23:20 Dose: 250 mls Metronidazole 500 mg/ Device 100 mls @ 100 mls/hr IVPB Q8HR [facility] Insulin Human Regular (Humulin R) 0 units SC .MODERATE SLIDING SC PRN; Protocol PRN Reason: MODERATE SLIDING SCALE Last Admin: 11/18/16 05:53 Dose: 2 unit Insulin Human Regular (Humulin R) 0 units SC .BEDTIME SLIDING SC PRN; Protocol PRN Reason: BEDTIME SLIDING SCALE Labetalol HCl (Normodyne) 20 mg SLOW IVP Q1H PRN PRN Reason: SBP Greater Than 180 Miscellaneous Medication (Pharmacy To Dose) 0 each IVPB PRN PRN PRN Reason: [facility] Pharmacy to Dose Ondansetron HCl (Zofran) 4 mg IVP Q4H PRN PRN Reason: Nausea/Vomiting Last Admin: 11/14/16 08:05 Dose: 4 mg Pantoprazole Sodium (Protonix) 40 mg IVP Q12HR [facility] Last Admin: 11/18/16 08:41 Dose: 40 mg Pregabalin (Lyrica) 50 mg PO BID [facility] Last Admin: 11/18/16 08:41 Dose: 50 mg Sodium Chloride (Flush - Normal Saline) 10 ml IVF Q12HR [facility] Last Admin: 11/18/16 08:42 Dose: 10 ml Sodium Chloride (Flush - Normal Saline) 10 ml IVF PRN PRN PRN Reason: Saline Flush Last Admin: 11/13/16 11:06 Dose: 10 ml Sodium Chloride (Flush - Normal Saline) 5 ml IVF BID [facility] Last Admin: 11/18/16 08:42 Dose: 5 ml
[2016-11-18] MEDS: metroNIDAZOLE 500 MG in Premix Bag 1 BAG IVPB SCH ×2 (14:37→22:07)
--- NOTE | 2016-11-18 17:05 | PRG ---
DATE OF SERVICE: 11/18/2016 SUBJECTIVE: Patient was seen and examined at bedside and overnight events noted. Patient denies an y shortness of breath or chest pain or palpitation. No history of nausea or vomiting or diarrhea or fever or chills or cramps. OBJECTIVE: GENERAL: This is an elderly female in no apparent distress. VITAL SIGNS: Temperature 97.8, pulse 104, respirations 16, blood pressure 160/89. HEENT: Atraumatic, normocephalic. Oral mucosa is moist. NECK: Supple. CARDIOVASCULAR: S1 and S2 heard, rate and rhythm regular. RESPIRATORY: Clear to auscultation. GASTROINTESTINAL: Abdomen is soft. MUSCULOSKELETAL: No tenderness, no edema. DERMATOLOGIC: No skin rash. NEUROLOGIC: Alert and awake and oriented X3. No focal neurologic deficits. Moving all the extremi ties. PSYCHIATRIC: Mood and affect normal. LABORATORY DATA: Potassium is 3.8, BUN is 41, creatinine 0.7. ASSESSMENT AND PLAN: 1. Acute kidney injury. Renal function is much better and back to normal. 2. Azotemia better. 3. Edema. 4. Anemia. 5. Hypertension, titrate medicines. 6. Morbid obesity. 7. Renal function is much better. I will sign off. Please call back with any questions.
[2016-11-18] MEDS: Ondansetron HCl/PF 4 MG/2 ML Vial IVP PRN (17:25)
[2016-11-18] MEDS: [UNRECOGNIZED DRUG - OTHER] IV SCH ×12 (22:15)
[2016-11-18] MEDS: SODIUM ACETATE IV SCH ×12 (22:15)
[2016-11-18] MEDS: FAT EMULSION IV SCH ×12 (22:15)
[2016-11-18] MEDS: POTASSIUM ACETATE IV SCH ×12 (22:15)
[2016-11-18 22:47] LABS: Vancomycin, Trough 10.1 ug/mL
[2016-11-18] MEDS: Vancomycin HCl 1.25 GM in Sodium Chloride 0.9% 250 ML 250 ML IVPB SCH (23:15)
[2016-11-19] MEDS: Meropenem 1 GM in Sodium Chloride 0.9% 100 ML IVPB SCH ×3 (05:45→21:45)
[2016-11-19] MEDS: Acetaminophen 500 MG TAB PO PRN ×3 (05:56→21:46)
[2016-11-19] MEDS: metroNIDAZOLE 500 MG in Premix Bag 1 BAG IVPB SCH ×3 (05:57→22:50)
[2016-11-19 08:16] LABS: #Eosinphils 1.1 thou/uL (0.0-0.7); #Lymphocytes 1.6 thou/uL (1.20-3.40); #Monocytes 0.5 thou/uL (0.11-0.59); %Basophils 0.3 % (0.0-1.0); %Eosinophils 8.8 % (0.0-10.0); %Lymphocytes 12.9 % (21.0-51.0); %Monocytes 3.8 % (0.0-10.0); Hematocrit 30.7 % (36.0-47.0); Mean Platelet Volume 8.6 fL (7.4-10.4); Red Blood Cell (RBC) Count 3.29 mill/uL (4.20-5.40); White Blood Cell (WBC) Count 12.1 thou/uL (4.8-10.8)
--- NOTE | 2016-11-19 09:10 | PRG ---
DATE OF SERVICE: 11/19/2016 SUBJECTIVE: Ms. Walton is more alert today, less confused. PHYSICAL EXAMINATION: VITAL SIGNS: Stable and she is afebrile. ABDOMEN: Soft, but she has active bowel sounds. Midline wound VAC in place. SHAUN drains, it is most ly serous at this point. LABORATORY DATA: White blood cell count is 12 and hemoglobin 10. ASSESSMENT: Resolving ileus with more active bowel sounds, less confusion. PLAN: Advance to full liquids. I suspect she will be able to advance further tomorrow when Dr. Alarcon returns. Will lower her TPN rate slightly.
[2016-11-19] MEDS: Pregabalin 50 MG CAP PO SCH ×2 (09:20→21:45)
[2016-11-19] MEDS: Pantoprazole 40 MG VIAL IVP SCH ×2 (09:20→21:45)
[2016-11-19] MEDS: Enoxaparin Sodium 40 MG/0.4 ML SYRINGE SC SCH (09:21)
--- NOTE | 2016-11-19 09:56 | PDOC.PN ---
- Subjective Encounter Start Date: 11/19/16 Encounter Start Time: 07:50 today pt is more alert and asking to advance her diet, no diarrhoea, no fever Patient seen and examined. No overnight events - Objective MAR Reviewed: Yes Vital Signs & Weight: Vital Signs (12 hours) Temp Pulse Resp BP Pulse Ox 11/19/16 08:16 97.4 F L 104 H 16 141/84 H 96 11/19/16 04:00 97.5 F L 95 20 151/83 H 96 11/19/16 00:00 98.2 F 90 18 152/83 H 96 Weight Admit Weight 224 lb 13.936 oz Weight 270 lb 1.6 oz Most Recent Monitor Data Heart Rate from ECG 94 NIBP 140/69 NIBP BP-Mean 91 Respiration from ECG 96 SpO2 96 I&O: 11/18/16 11/19/16 11/20/16 06:59 06:59 06:59 Intake Total 1807 1440 Output Total 2875 2328 Balance -4494 -484 Result Diagrams: 11/19/16 06:00 11/18/16 05:40 Additional Labs: Accuchecks 11/19/16 11/18/16 11/18/16 06:42 23:32 17:34 POC Glucose 163 H 139 H 180 H 11/18/16 11:39 POC Glucose 203 H Phys Exam - Physical Examination Constitutional: NAD HEENT: PERRLA, moist MMs, sclera anicteric Neck: no JVD, supple Respiratory: no wheezing, no rales, no rhonchi Cardiovascular: RRR, no significant murmur, no rub Gastrointestinal: soft, non-tender, no distention, positive bowel sounds wound vac in place, 2 drain+ Musculoskeletal: no edema, pulses present Neurological: non-focal, normal sensation Lymphatic: no nodes Psychiatric: normal affect Skin: no rash, normal turgor Dx/Plan (1) SBO (small bowel obstruction) Code(s): K56.69 - OTHER INTESTINAL OBSTRUCTION Status: Acute Comment: s/p adhesiolysis (2) Diabetes type 2, controlled Code(s): E11.9 - TYPE 2 DIABETES MELLITUS WITHOUT COMPLICATIONS Status: Chronic (3) Dyslipidemia Code(s): E78.5 - HYPERLIPIDEMIA, UNSPECIFIED Status: Chronic (4) Hypertension Code(s): I10 - ESSENTIAL (PRIMARY) HYPERTENSION Status: Chronic (5) Morbid obesity with BMI of 40.0-44.9, adult Code(s): E66.01 - MORBID (SEVERE) OBESITY DUE TO EXCESS CALORIES; Z68.41 - BODY MASS INDEX (BMI) 40.0-44.9, ADULT Status: Chronic (6) Physical deconditioning Code(s): R53.81 - OTHER MALAISE Status: Acute (7) Acute kidney failure Status: Resolved (8) Anemia Code(s): D64.9 - ANEMIA, UNSPECIFIED Status: Acute (9) Hyponatremia Code(s): E87.1 - HYPO-OSMOLALITY AND HYPONATREMIA Status: Acute (10) Hypotension Status: Acute (11) Left lower lobe pneumonia Code(s): J18.1 - LOBAR PNEUMONIA, UNSPECIFIED ORGANISM Status: Acute (12) UTI (urinary tract infection) Status: Acute (13) Abdominal abscess Code(s): K65.1 - PERITONEAL ABSCESS Status: Acute (14) C. difficile diarrhea Code(s): A04.7 - ENTEROCOLITIS DUE TO CLOSTRIDIUM DIFFICILE Status: Acute - Plan cont current plan of care, plan discussed w/ family, continue antibiotics, PT/OT , geriatric social worker * medication reviewed as below * symptomatic treatment. * diet advancement per surgeon * continue meropenam, vancomycin and flagyl * will repeat labs tomorrow. * continue TPN Review of Systems - Review of Systems Constitutional: Weakness. negative: Fever, Chills, Sweats, Malaise, Other ENT: negative: Ear Pain, Ear Discharge, Nose Pain, Nose Discharge, Nose Congestion, Mouth Pain, Mouth Swelling, Throat Pain, Throat Swelling, Other Respiratory: negative: Cough, Dry, Shortness of Breath, Hemoptysis, SOB with Excertion, Pleuritic Pain, Sputum, Wheezing Cardiovascular: negative: Chest Pain, Palpitations, Orthopnea, Paroxysmal Noc. Dyspnea, Edema, Light Headedness, Other Gastrointestinal: negative: Nausea, Vomiting, Abdominal Pain, Diarrhea, Constipation, Melena, Hematochezia, Other Genitourinary: negative: Dysuria, Frequency, Incontinence, Hematuria, Retention , Other Musculoskeletal: negative: Neck Pain, Shoulder Pain, Arm Pain, Back Pain, Hand Pain, Leg Pain, Foot Pain, Other - Medications/Allergies Allergies/Adverse Reactions: Allergies Allergy/AdvReac Type Severity Reaction Status Date / Time No Known Allergies Allergy Verified 10/24/16 06:40 Medications: Current Medications Acetaminophen (Tylenol) 1,000 mg PO Q6H PRN PRN Reason: Fever > 101 Last Admin: 11/19/16 05:56 Dose: 1,000 mg Albuterol/Ipratropium (Duoneb) 3 ml NEB Q4H PRN PRN Reason: Wheezing Dextrose/Water (Dextrose 50%) 25 gm SLOW IVP PRN PRN PRN Reason: Hypoglycemia Enoxaparin Sodium (Lovenox) 40 mg SC 0900 [facility] Last Admin: 11/19/16 09:21 Dose: 40 mg Glucagon (Glucagon) 1 mg IM PRN PRN PRN Reason: Hypoglycemia Hydralazine HCl (Apresoline) 10 mg SLOW IVP Q4H PRN PRN Reason: SBP > 170 or DBP > 100 Last Admin: 11/17/16 19:49 Dose: 10 mg Dextrose/Water (D5w) 1,000 mls @ 0 mls/hr IV .Q0M PRN; As Directed PRN Reason: Hypoglycemia Meropenem 1 gm/ Sodium (Chloride) 100 mls @ 200 mls/hr IVPB 0500,1300,2100 [facility] Last Admin: 11/19/16 05:45 Dose: 100 mls Lactated Ringer's (Lactated Ringer's) 1,000 mls @ 0 mls/hr IV .Q0M [facility] PRN Reason: As Directed Last Admin: 11/16/16 22:15 Dose: 1,000 mls Metronidazole 500 mg/ Device 100 mls @ 100 mls/hr IVPB Q8HR [facility] Last Admin: 11/19/16 05:57 Dose: 100 mls Vancomycin HCl 1.75 gm/ Sodium (Chloride) 500 mls @ 250 mls/hr IVPB Q24HR [facility] Fat Emulsion Intravenous 250 ml/ Sodium Acetate 100 meq/Potassium Acetate 40 meq /Potassium Phosphate 15 mmol/Calcium Gluconate 10 meq/Magnesium Sulfate 20 meq/ Insulin Human Regular 20 units / Multivitamins 10 ml/Chromium/Copper/Manganese/ Seleni/Zn 5 ml/ Sodium Chloride 30 meq/ Dextrose/Water/ Sterile Water/ Amino Acids 1,949.3652 mls @ 50 mls/hr IV 2200 [facility] Insulin Human Regular (Humulin R) 0 units SC .MODERATE SLIDING SC PRN; Protocol PRN Reason: MODERATE SLIDING SCALE Last Admin: 11/18/16 17:40 Dose: 2 unit Insulin Human Regular (Humulin R) 0 units SC .BEDTIME SLIDING SC PRN; Protocol PRN Reason: BEDTIME SLIDING SCALE Labetalol HCl (Normodyne) 20 mg SLOW IVP Q1H PRN PRN Reason: SBP Greater Than 180 Miscellaneous Medication (Pharmacy To Dose) 0 each IVPB PRN PRN PRN Reason: [facility] Pharmacy to Dose Ondansetron HCl (Zofran) 4 mg IVP Q4H PRN PRN Reason: Nausea/Vomiting Last Admin: 11/18/16 17:25 Dose: 4 mg Pantoprazole Sodium (Protonix) 40 mg IVP Q12HR [facility] Last Admin: 11/19/16 09:20 Dose: 40 mg Pregabalin (Lyrica) 50 mg PO BID [facility] Last Admin: 11/19/16 09:20 Dose: 50 mg Sodium Chloride (Flush - Normal Saline) 10 ml IVF Q12HR [facility] Last Admin: 11/19/16 09:28 Dose: 10 ml Sodium Chloride (Flush - Normal Saline) 10 ml IVF PRN PRN PRN Reason: Saline Flush Last Admin: 11/13/16 11:06 Dose: 10 ml Sodium Chloride (Flush - Normal Saline) 5 ml IVF BID [facility] Last Admin: 11/19/16 09:28 Dose: 5 ml
[2016-11-19] MEDS: Lactated Ringer's 1,000 ML IV SCH (14:08)
[2016-11-19] MEDS: POTASSIUM ACETATE IV SCH ×12 (22:49)
[2016-11-19] MEDS: FAT EMULSION IV SCH ×12 (22:49)
[2016-11-19] MEDS: SODIUM ACETATE IV SCH ×12 (22:49)
[2016-11-19] MEDS: [UNRECOGNIZED DRUG - OTHER] IV SCH ×12 (22:49)
[2016-11-20] MEDS: Vancomycin HCl 1.75 GM in Sodium Chloride 0.9% 500 ML IVPB SCH ×2 (00:16→22:48)
[2016-11-20] MEDS: Acetaminophen 500 MG TAB PO PRN ×3 (04:02→17:18)
[2016-11-20] MEDS: Meropenem 1 GM in Sodium Chloride 0.9% 100 ML IVPB SCH ×3 (05:14→20:46)
[2016-11-20 05:45] LABS: ALT (SGPT) 9 U/L (8-55); AST (SGOT) 27 U/L (5-34); Alkaline Phosphatase 106 U/L (40-150); Anion Gap 8 mmol/L (10-20); BUN (Urea Nitrogen) 29 mg/dL (9.8-20.1); Bilirubin, Total 0.3 mg/dL (0.2-1.2); Calc. Creatinine Clearance 186 mL/min (70-130); Calcium 9.5 mg/dL (7.8-10.44); Carbon Dioxide 33 mmol/L (23-31); Chloride 98 mmol/L (98-107); Estimated GFR-MDRD Greater than 90; Protein, Total 6.2 g/dL (6.0-8.3)
[2016-11-20] MEDS: metroNIDAZOLE 500 MG in Premix Bag 1 BAG IVPB SCH ×3 (06:32→21:44)
[2016-11-20 07:19] LABS: #Eosinphils 0.7 thou/uL (0.0-0.7); #Lymphocytes 1.2 thou/uL (1.20-3.40); #Monocytes 0.3 thou/uL (0.11-0.59); #Neutrophils 10.3 thou/uL (1.40-6.50); %Basophils 0.2 % (0.0-1.0); %Eosinophils 5.5 % (0.0-10.0); %Lymphocytes 9.5 % (21.0-51.0); %Monocytes 2.4 % (0.0-10.0); Hematocrit 30.5 % (36.0-47.0); Mean Platelet Volume 7.5 fL (7.4-10.4); Red Blood Cell (RBC) Count 3.29 mill/uL (4.20-5.40); White Blood Cell (WBC) Count 12.5 thou/uL (4.8-10.8)
[2016-11-20] MEDS: Pregabalin 50 MG CAP PO SCH ×2 (08:18→20:47)
[2016-11-20] MEDS: Enoxaparin Sodium 40 MG/0.4 ML SYRINGE SC SCH (08:20)
[2016-11-20] MEDS: Pantoprazole 40 MG VIAL IVP SCH ×2 (08:20→20:47)
--- NOTE | 2016-11-20 10:59 | PDOC.PN ---
- Subjective Encounter Start Date: 11/20/16 Encounter Start Time: 07:50 pt has very poor po intake, no diarrhoea, on TPN, - Objective MAR Reviewed: Yes Vital Signs & Weight: Vital Signs (12 hours) Temp Pulse Resp BP Pulse Ox 11/20/16 08:26 95 18 163/86 H 97 11/20/16 04:00 99.6 F 95 20 159/88 H 98 11/20/16 00:00 89 20 135/76 97 Weight Admit Weight 224 lb 13.936 oz Weight 277 lb 7 oz Most Recent Monitor Data Heart Rate from ECG 94 NIBP 140/69 NIBP BP-Mean 91 Respiration from ECG 96 SpO2 96 I&O: 11/19/16 11/20/16 11/21/16 06:59 06:59 06:59 Intake Total 1440 4185 Output Total 2328 2432 Balance -888 1753 Result Diagrams: 11/20/16 06:50 11/20/16 05:10 Additional Labs: Accuchecks 11/20/16 11/19/16 11/19/16 05:15 23:36 18:44 POC Glucose 133 H 147 H 160 H 11/19/16 12:32 POC Glucose 159 H Phys Exam - Physical Examination Constitutional: NAD HEENT: PERRLA, moist MMs, sclera anicteric Neck: no JVD, supple Respiratory: no wheezing, no rales, no rhonchi Cardiovascular: RRR, no significant murmur, no rub Gastrointestinal: soft, non-tender, no distention, positive bowel sounds wound vac in place Musculoskeletal: no edema, pulses present Neurological: non-focal, normal sensation Lymphatic: no nodes Psychiatric: normal affect Skin: no rash, normal turgor Dx/Plan (1) SBO (small bowel obstruction) Code(s): K56.69 - OTHER INTESTINAL OBSTRUCTION Status: Acute Comment: s/p adhesiolysis (2) Diabetes type 2, controlled Code(s): E11.9 - TYPE 2 DIABETES MELLITUS WITHOUT COMPLICATIONS Status: Chronic (3) Dyslipidemia Code(s): E78.5 - HYPERLIPIDEMIA, UNSPECIFIED Status: Chronic (4) Hypertension Code(s): I10 - ESSENTIAL (PRIMARY) HYPERTENSION Status: Chronic (5) Morbid obesity with BMI of 40.0-44.9, adult Code(s): E66.01 - MORBID (SEVERE) OBESITY DUE TO EXCESS CALORIES; Z68.41 - BODY MASS INDEX (BMI) 40.0-44.9, ADULT Status: Chronic (6) Physical deconditioning Code(s): R53.81 - OTHER MALAISE Status: Acute (7) Acute kidney failure Status: Resolved (8) Anemia Code(s): D64.9 - ANEMIA, UNSPECIFIED Status: Acute (9) Hyponatremia Code(s): E87.1 - HYPO-OSMOLALITY AND HYPONATREMIA Status: Acute (10) Hypotension Status: Acute (11) Left lower lobe pneumonia Code(s): J18.1 - LOBAR PNEUMONIA, UNSPECIFIED ORGANISM Status: Acute (12) UTI (urinary tract infection) Status: Acute (13) Abdominal abscess Code(s): K65.1 - PERITONEAL ABSCESS Status: Acute (14) C. difficile diarrhea Code(s): A04.7 - ENTEROCOLITIS DUE TO CLOSTRIDIUM DIFFICILE Status: Acute - Plan cont current plan of care, ledesma catheter, continue antibiotics, PT/OT, social science professor * diet as tolerated * continue TPN * continue current antibiotics * ? discharge planning to [facility] * medication reviewed as below * symptomatic treatment. * supportive care * wound care. Review of Systems - Review of Systems Constitutional: Weakness, Malaise. negative: Fever, Chills, Sweats, Other ENT: negative: Ear Pain, Ear Discharge, Nose Pain, Nose Discharge, Nose Congestion, Mouth Pain, Mouth Swelling, Throat Pain, Throat Swelling, Other Respiratory: negative: Cough, Dry, Shortness of Breath, Hemoptysis, SOB with Excertion, Pleuritic Pain, Sputum, Wheezing Cardiovascular: negative: Chest Pain, Palpitations, Orthopnea, Paroxysmal Noc. Dyspnea, Edema, Light Headedness, Other Gastrointestinal: negative: Nausea, Vomiting, Abdominal Pain, Diarrhea, Constipation, Melena, Hematochezia, Other Genitourinary: negative: Dysuria, Frequency, Incontinence, Hematuria, Retention , Other Musculoskeletal: negative: Neck Pain, Shoulder Pain, Arm Pain, Back Pain, Hand Pain, Leg Pain, Foot Pain, Other - Medications/Allergies Allergies/Adverse Reactions: Allergies Allergy/AdvReac Type Severity Reaction Status Date / Time No Known Allergies Allergy Verified 10/24/16 06:40 Medications: Current Medications Acetaminophen (Tylenol) 1,000 mg PO Q6H PRN PRN Reason: Fever > 101 Last Admin: 11/20/16 10:16 Dose: 1,000 mg Albuterol/Ipratropium (Duoneb) 3 ml NEB Q4H PRN PRN Reason: Wheezing Dextrose/Water (Dextrose 50%) 25 gm SLOW IVP PRN PRN PRN Reason: Hypoglycemia Enoxaparin Sodium (Lovenox) 40 mg SC 0900 [facility] Last Admin: 11/20/16 08:20 Dose: 40 mg Glucagon (Glucagon) 1 mg IM PRN PRN PRN Reason: Hypoglycemia Hydralazine HCl (Apresoline) 10 mg SLOW IVP Q4H PRN PRN Reason: SBP > 170 or DBP > 100 Last Admin: 11/17/16 19:49 Dose: 10 mg Dextrose/Water (D5w) 1,000 mls @ 0 mls/hr IV .Q0M PRN; As Directed PRN Reason: Hypoglycemia Meropenem 1 gm/ Sodium (Chloride) 100 mls @ 200 mls/hr IVPB 0500,1300,2100 [facility] Last Admin: 11/20/16 05:14 Dose: 100 mls Lactated Ringer's (Lactated Ringer's) 1,000 mls @ 0 mls/hr IV .Q0M [facility] PRN Reason: As Directed Last Admin: 11/19/16 14:08 Dose: 1,000 mls Metronidazole 500 mg/ Device 100 mls @ 100 mls/hr IVPB Q8HR [facility] Last Admin: 11/20/16 06:32 Dose: 100 mls Vancomycin HCl 1.75 gm/ Sodium (Chloride) 500 mls @ 250 mls/hr IVPB Q24HR [facility] Last Admin: 11/20/16 00:16 Dose: 500 mls Fat Emulsion Intravenous 250 ml/ Sodium Acetate 100 meq/Potassium Acetate 40 meq /Potassium Phosphate 15 mmol/Calcium Gluconate 10 meq/Magnesium Sulfate 20 meq/ Insulin Human Regular 20 units / Multivitamins 10 ml/Chromium/Copper/Manganese/ Seleni/Zn 5 ml/ Sodium Chloride 30 meq/ Dextrose/Water/ Sterile Water/ Amino Acids 1,949.3652 mls @ 50 mls/hr IV 2200 [facility] Last Admin: 11/19/16 22:49 Dose: 1,949.3652 mls Insulin Human Regular (Humulin R) 0 units SC .MODERATE SLIDING SC PRN; Protocol PRN Reason: MODERATE SLIDING SCALE Last Admin: 11/18/16 17:40 Dose: 2 unit Insulin Human Regular (Humulin R) 0 units SC .BEDTIME SLIDING SC PRN; Protocol PRN Reason: BEDTIME SLIDING SCALE Labetalol HCl (Normodyne) 20 mg SLOW IVP Q1H PRN PRN Reason: SBP Greater Than 180 Miscellaneous Medication (Pharmacy To Dose) 0 each IVPB PRN PRN PRN Reason: [facility] Pharmacy to Dose Ondansetron HCl (Zofran) 4 mg IVP Q4H PRN PRN Reason: Nausea/Vomiting Last Admin: 11/18/16 17:25 Dose: 4 mg Pantoprazole Sodium (Protonix) 40 mg IVP Q12HR [facility] Last Admin: 11/20/16 08:20 Dose: 40 mg Pregabalin (Lyrica) 50 mg PO BID [facility] Last Admin: 11/20/16 08:18 Dose: 50 mg Sodium Chloride (Flush - Normal Saline) 10 ml IVF Q12HR [facility] Last Admin: 11/20/16 08:21 Dose: 10 ml Sodium Chloride (Flush - Normal Saline) 10 ml IVF PRN PRN PRN Reason: Saline Flush Last Admin: 11/13/16 11:06 Dose: 10 ml Sodium Chloride (Flush - Normal Saline) 5 ml IVF BID [facility] Last Admin: 11/20/16 10:29 Dose: Not Given
[2016-11-20] MEDS: FAT EMULSION IV SCH ×12 (22:48)
[2016-11-20] MEDS: POTASSIUM ACETATE IV SCH ×12 (22:48)
[2016-11-20] MEDS: [UNRECOGNIZED DRUG - OTHER] IV SCH ×12 (22:48)
[2016-11-20] MEDS: SODIUM ACETATE IV SCH ×12 (22:48)
[2016-11-21] MEDS: Meropenem 1 GM in Sodium Chloride 0.9% 100 ML IVPB SCH ×3 (04:43→21:08)
[2016-11-21] MEDS: metroNIDAZOLE 500 MG in Premix Bag 1 BAG IVPB SCH ×2 (06:05→17:26)
[2016-11-21 07:27] LABS: #Basophils 0.1 thou/uL (0.0-0.2); #Eosinphils 0.1 thou/uL (0.0-0.7); #Lymphocytes 1.2 thou/uL (1.20-3.40); #Monocytes 0.4 thou/uL (0.11-0.59); #Neutrophils 8.2 thou/uL (1.40-6.50); %Basophils 0.6 % (0.0-1.0); %Eosinophils 1.3 % (0.0-10.0); %Lymphocytes 12.5 % (21.0-51.0); %Monocytes 3.6 % (0.0-10.0); Hematocrit 30.3 % (36.0-47.0); Mean Platelet Volume 8.5 fL (7.4-10.4); Red Blood Cell (RBC) Count 3.29 mill/uL (4.20-5.40)
[2016-11-21] MEDS: Pantoprazole 40 MG VIAL IVP SCH ×2 (09:28→21:09)
[2016-11-21] MEDS: Pregabalin 50 MG CAP PO SCH ×2 (09:29→21:09)
[2016-11-21] MEDS: Enoxaparin Sodium 40 MG/0.4 ML SYRINGE SC SCH (09:29)
[2016-11-21] MEDS ORDERED: Propofol 500 MG/50 ML VIAL ONE (13:29)
[2016-11-21] MEDS ORDERED: Propofol 200 MG/20 ML VIAL ONE (13:51)
[2016-11-21] MEDS ORDERED: Ondansetron HCl/PF 4 MG/2 ML Vial IVP PRN (14:28)
[2016-11-21] MEDS ORDERED: Promethazine HCl 25 MG/ML VIAL SLOW IVP PRN (14:28)
[2016-11-21] MEDS ORDERED: Morphine Sulfate 2 MG/ML SYRINGE SLOW IVP PRN (14:28)
--- NOTE | 2016-11-21 15:38 | PDOC.PN ---
- Subjective Encounter Start Date: 11/21/16 Encounter Start Time: 09:30 pt is very weak, no fever, no new problem, no overnight event - Objective MAR Reviewed: Yes Vital Signs & Weight: Vital Signs (12 hours) Temp Pulse Resp BP Pulse Ox 11/21/16 12:15 98.2 F 94 20 150/84 H 96 11/21/16 08:45 98.2 F 106 H 20 144/79 H 94 L Weight Admit Weight 224 lb 13.936 oz Weight 277 lb 7 oz Most Recent Monitor Data Heart Rate from ECG 94 NIBP 140/69 NIBP BP-Mean 91 Respiration from ECG 96 SpO2 96 I&O: 11/20/16 11/21/16 11/22/16 06:59 06:59 06:59 Intake Total 4185 3050 Output Total 2432 1450 Balance 1753 1600 Result Diagrams: 11/21/16 05:10 11/20/16 05:10 Additional Labs: Accuchecks 11/21/16 11/20/16 11/20/16 05:56 23:39 17:46 POC Glucose 146 H 138 H 148 H Phys Exam - Physical Examination Constitutional: NAD HEENT: PERRLA, moist MMs, sclera anicteric Neck: no JVD, supple Respiratory: no wheezing, no rales, no rhonchi central line on chest Cardiovascular: RRR, no significant murmur, no rub Gastrointestinal: soft, non-tender, no distention, positive bowel sounds wound vac in place Musculoskeletal: no edema, pulses present Neurological: non-focal Psychiatric: normal affect, A&O x 3 Skin: no rash, normal turgor Dx/Plan (1) SBO (small bowel obstruction) Code(s): K56.69 - OTHER INTESTINAL OBSTRUCTION Status: Acute Comment: s/p adhesiolysis (2) Diabetes type 2, controlled Code(s): E11.9 - TYPE 2 DIABETES MELLITUS WITHOUT COMPLICATIONS Status: Chronic (3) Dyslipidemia Code(s): E78.5 - HYPERLIPIDEMIA, UNSPECIFIED Status: Chronic (4) Hypertension Code(s): I10 - ESSENTIAL (PRIMARY) HYPERTENSION Status: Chronic (5) Morbid obesity with BMI of 40.0-44.9, adult Code(s): E66.01 - MORBID (SEVERE) OBESITY DUE TO EXCESS CALORIES; Z68.41 - BODY MASS INDEX (BMI) 40.0-44.9, ADULT Status: Chronic (6) Physical deconditioning Code(s): R53.81 - OTHER MALAISE Status: Acute (7) Acute kidney failure Status: Resolved (8) Anemia Code(s): D64.9 - ANEMIA, UNSPECIFIED Status: Acute (9) Hyponatremia Code(s): E87.1 - HYPO-OSMOLALITY AND HYPONATREMIA Status: Acute (10) Hypotension Status: Acute (11) Left lower lobe pneumonia Code(s): J18.1 - LOBAR PNEUMONIA, UNSPECIFIED ORGANISM Status: Acute (12) UTI (urinary tract infection) Status: Acute (13) Abdominal abscess Code(s): K65.1 - PERITONEAL ABSCESS Status: Acute (14) C. difficile diarrhea Code(s): A04.7 - ENTEROCOLITIS DUE TO CLOSTRIDIUM DIFFICILE Status: Acute - Plan cont current plan of care, continue antibiotics, PT/OT, social work nurse * continue meropenam and vancomycin and flagyl * continue TPN * consider ltac, if rehab does not take * medication reviewed as below * symptomatic treatment.. * wound care * stable and slowly improving Review of Systems - Review of Systems Constitutional: Weakness, Malaise. negative: Fever, Chills, Sweats, Other Respiratory: negative: Cough, Dry, Shortness of Breath, Hemoptysis, SOB with Excertion, Pleuritic Pain, Sputum, Wheezing Cardiovascular: negative: Chest Pain, Palpitations, Orthopnea, Paroxysmal Noc. Dyspnea, Edema, Light Headedness, Other Gastrointestinal: negative: Nausea, Vomiting, Abdominal Pain, Diarrhea, Constipation, Melena, Hematochezia, Other Genitourinary: negative: Dysuria, Frequency, Incontinence, Hematuria, Retention , Other Musculoskeletal: negative: Neck Pain, Shoulder Pain, Arm Pain, Back Pain, Hand Pain, Leg Pain, Foot Pain, Other - Medications/Allergies Allergies/Adverse Reactions: Allergies Allergy/AdvReac Type Severity Reaction Status Date / Time No Known Allergies Allergy Verified 10/24/16 06:40 Medications: Current Medications Acetaminophen (Tylenol) 1,000 mg PO Q6H PRN PRN Reason: Fever > 101 Last Admin: 11/20/16 17:18 Dose: 1,000 mg Albuterol/Ipratropium (Duoneb) 3 ml NEB Q4H PRN PRN Reason: Wheezing Dextrose/Water (Dextrose 50%) 25 gm SLOW IVP PRN PRN PRN Reason: Hypoglycemia Enoxaparin Sodium (Lovenox) 40 mg SC 0900 [facility] Last Admin: 11/21/16 09:29 Dose: 40 mg Glucagon (Glucagon) 1 mg IM PRN PRN PRN Reason: Hypoglycemia Hydralazine HCl (Apresoline) 10 mg SLOW IVP Q4H PRN PRN Reason: SBP > 170 or DBP > 100 Last Admin: 11/17/16 19:49 Dose: 10 mg Dextrose/Water (D5w) 1,000 mls @ 0 mls/hr IV .Q0M PRN; As Directed PRN Reason: Hypoglycemia Meropenem 1 gm/ Sodium (Chloride) 100 mls @ 200 mls/hr IVPB 0500,1300,2100 [facility] Last Admin: 11/21/16 13:34 Dose: 100 mls Lactated Ringer's (Lactated Ringer's) 1,000 mls @ 0 mls/hr IV .Q0M [facility] PRN Reason: As Directed Last Admin: 11/19/16 14:08 Dose: 1,000 mls Metronidazole 500 mg/ Device 100 mls @ 100 mls/hr IVPB Q8HR [facility] Last Admin: 11/21/16 06:05 Dose: 100 mls Vancomycin HCl 1.75 gm/ Sodium (Chloride) 500 mls @ 250 mls/hr IVPB Q24HR [facility] Last Admin: 11/20/16 22:48 Dose: 500 mls Fat Emulsion Intravenous 250 ml/ Sodium Acetate 100 meq/Potassium Acetate 40 meq /Potassium Phosphate 15 mmol/Calcium Gluconate 10 meq/Magnesium Sulfate 20 meq/ Insulin Human Regular 20 units / Multivitamins 10 ml/Chromium/Copper/Manganese/ Seleni/Zn 5 ml/ Sodium Chloride 30 meq/ Dextrose/Water/ Sterile Water/ Amino Acids 1,949.3652 mls @ 50 mls/hr IV 2200 [facility] Last Admin: 11/20/16 22:48 Dose: 1,949.3652 mls Insulin Human Regular (Humulin R) 0 units SC .MODERATE SLIDING SC PRN; Protocol PRN Reason: MODERATE SLIDING SCALE Last Admin: 11/18/16 17:40 Dose: 2 unit Insulin Human Regular (Humulin R) 0 units SC .BEDTIME SLIDING SC PRN; Protocol PRN Reason: BEDTIME SLIDING SCALE Labetalol HCl (Normodyne) 20 mg SLOW IVP Q1H PRN PRN Reason: SBP Greater Than 180 Miscellaneous Medication (Pharmacy To Dose) 0 each IVPB PRN PRN PRN Reason: [facility] Pharmacy to Dose Morphine Sulfate (Pacu-Morphine Sulfate) 2 mg SLOW IVP Q10MIN PRN PRN Reason: Moderate to Severe Pain (6-10) Stop: 11/21/16 17:28 Morphine Sulfate (Pacu-Morphine Sulfate) 4 mg SLOW IVP ONE PRN PRN Reason: Moderate to Severe Pain (6-10) Stop: 11/21/16 17:28 Ondansetron HCl (Zofran) 4 mg IVP Q4H PRN PRN Reason: Nausea/Vomiting Last Admin: 11/18/16 17:25 Dose: 4 mg Ondansetron HCl (Pacu-Zofran) 4 mg IVP ONE PRN PRN Reason: Nausea/Vomiting Stop: 11/21/16 17:28 Pantoprazole Sodium (Protonix) 40 mg IVP Q12HR [facility] Last Admin: 11/21/16 09:28 Dose: 40 mg Pregabalin (Lyrica) 50 mg PO BID [facility] Last Admin: 11/21/16 09:29 Dose: Not Given Promethazine HCl (Pacu-Phenergan) 6.25 mg SLOW IVP ONE PRN PRN Reason: Nausea/Vomiting Stop: 11/21/16 17:28 Sodium Chloride (Flush - Normal Saline) 10 ml IVF Q12HR [facility] Last Admin: 11/21/16 09:29 Dose: 10 ml Sodium Chloride (Flush - Normal Saline) 10 ml IVF PRN PRN PRN Reason: Saline Flush Last Admin: 11/13/16 11:06 Dose: 10 ml Sodium Chloride (Flush - Normal Saline) 5 ml IVF BID [facility] Last Admin: 11/20/16 10:29 Dose: Not Given
[2016-11-21] MEDS: Acetaminophen 500 MG TAB PO PRN (18:41)
[2016-11-21 21:45] LABS: Vancomycin, Trough 10.3 ug/mL
[2016-11-21] MEDS: FAT EMULSION IV SCH ×12 (22:55)
[2016-11-21] MEDS: SODIUM ACETATE IV SCH ×12 (22:55)
[2016-11-21] MEDS: POTASSIUM ACETATE IV SCH ×12 (22:55)
[2016-11-21] MEDS: Vancomycin HCl 1 GM in Premix Bag 1 BAG IVPB SCH (22:55)
[2016-11-21] MEDS: [UNRECOGNIZED DRUG - OTHER] IV SCH ×12 (22:55)
[2016-11-21] MEDS: Vancomycin HCl 1.75 GM in Sodium Chloride 0.9% 500 ML IVPB SCH (23:04)
[2016-11-22] MEDS: metroNIDAZOLE 500 MG in Premix Bag 1 BAG IVPB SCH ×3 (02:57→17:13)
[2016-11-22] MEDS: Meropenem 1 GM in Sodium Chloride 0.9% 100 ML IVPB SCH ×3 (05:39→20:13)
[2016-11-22 05:59] LABS: #Eosinphils 0.1 thou/uL (0.0-0.7); #Lymphocytes 1.3 thou/uL (1.20-3.40); #Monocytes 0.4 thou/uL (0.11-0.59); #Neutrophils 8.1 thou/uL (1.40-6.50); %Basophils 0.2 % (0.0-1.0); %Eosinophils 1.4 % (0.0-10.0); %Lymphocytes 13.4 % (21.0-51.0); %Monocytes 4.1 % (0.0-10.0); Hematocrit 31.3 % (36.0-47.0); Mean Platelet Volume 7.5 fL (7.4-10.4); Red Blood Cell (RBC) Count 3.41 mill/uL (4.20-5.40)
[2016-11-22] MEDS: Pregabalin 50 MG CAP PO SCH ×2 (08:56→20:14)
[2016-11-22] MEDS: Pantoprazole 40 MG VIAL IVP SCH ×2 (08:56→20:13)
[2016-11-22] MEDS: Enoxaparin Sodium 40 MG/0.4 ML SYRINGE SC SCH (08:57)
[2016-11-22] MEDS: Vancomycin HCl 1 GM in Premix Bag 1 BAG IVPB SCH ×2 (10:31→22:05)
[2016-11-22] MEDS: Lactated Ringer's 1,000 ML IV SCH (10:31)
--- NOTE | 2016-11-22 14:34 | PDOC.PN ---
- Subjective Encounter Start Date: 11/22/16 Encounter Start Time: 10:45 Subjective: awake, lethargic, working with PT - Objective MAR Reviewed: Yes Vital Signs & Weight: Vital Signs (12 hours) Temp Pulse Resp BP Pulse Ox 11/22/16 12:18 98.2 F 108 H 14 164/84 H 96 11/22/16 08:38 98.2 F 108 H 14 100 11/22/16 03:57 98.4 F 104 H 20 159/79 H 100 Weight Admit Weight 224 lb 13.936 oz Weight 275 lb 5 oz Most Recent Monitor Data Heart Rate from ECG 94 NIBP 140/69 NIBP BP-Mean 91 Respiration from ECG 96 SpO2 96 I&O: 11/21/16 11/22/16 11/23/16 06:59 06:59 06:59 Intake Total 3050 3700 Output Total 1450 Balance 1600 3700 Result Diagrams: 11/22/16 05:30 11/20/16 05:10 Additional Labs: Accuchecks 11/22/16 11/21/16 11/21/16 05:38 18:28 11:41 POC Glucose 143 H 126 H 148 H Phys Exam - Physical Examination HEENT: PERRLA, sclera anicteric Neck: no JVD, supple Respiratory: no wheezing, no rales Cardiovascular: RRR, no significant murmur Gastrointestinal: soft wound vac+ over abd Musculoskeletal: pulses present, edema present Neurological: non-focal, moves all 4 limbs Dx/Plan (1) Abdominal abscess Code(s): K65.1 - PERITONEAL ABSCESS Status: Acute Comment: s/p CT guided aspiration (2) C. difficile diarrhea Code(s): A04.7 - ENTEROCOLITIS DUE TO CLOSTRIDIUM DIFFICILE Status: Acute (3) Physical deconditioning Code(s): R53.81 - OTHER MALAISE Status: Acute (4) SBO (small bowel obstruction) Code(s): K56.69 - OTHER INTESTINAL OBSTRUCTION Status: Acute Comment: s/p laparotomy, excision of 140cms of small bowel, adhesiolysis and repair of internal hernia on 10/24/16 (5) Diabetes type 2, controlled Code(s): E11.9 - TYPE 2 DIABETES MELLITUS WITHOUT COMPLICATIONS Status: Chronic Qualifiers: Diabetes mellitus complication status: with unspecified complications Diabetes mellitus long term care administrator insulin use: with longterm use Qualified Code(s) : E11.8 - Type 2 diabetes mellitus with unspecified complications; Z79.4 - long term care administrator (current) use of insulin (6) Dyslipidemia Code(s): E78.5 - HYPERLIPIDEMIA, UNSPECIFIED Status: Chronic (7) Hypertension Code(s): I10 - ESSENTIAL (PRIMARY) HYPERTENSION Status: Chronic Qualifiers: Hypertension type: essential hypertension Qualified Code(s): I10 - Essential (primary) hypertension (8) Morbid obesity with BMI of 40.0-44.9, adult Code(s): E66.01 - MORBID (SEVERE) OBESITY DUE TO EXCESS CALORIES; Z68.41 - BODY MASS INDEX (BMI) 40.0-44.9, ADULT Status: Chronic - Plan is on peg feeding -: on meropenem, flagyl and vanc iv -: severe deconditioning -: awaiting placement -: oob to chair and amb as tolerated * . Review of Systems - Medications/Allergies Allergies/Adverse Reactions: Allergies Allergy/AdvReac Type Severity Reaction Status Date / Time No Known Allergies Allergy Verified 10/24/16 06:40 Medications: Current Medications Acetaminophen (Tylenol) 1,000 mg PO Q6H PRN PRN Reason: Fever > 101 Last Admin: 11/21/16 18:41 Dose: 1,000 mg Albuterol/Ipratropium (Duoneb) 3 ml NEB Q4H PRN PRN Reason: Wheezing Dextrose/Water (Dextrose 50%) 25 gm SLOW IVP PRN PRN PRN Reason: Hypoglycemia Enoxaparin Sodium (Lovenox) 40 mg SC 0900 [facility] Last Admin: 11/22/16 08:57 Dose: 40 mg Glucagon (Glucagon) 1 mg IM PRN PRN PRN Reason: Hypoglycemia Hydralazine HCl (Apresoline) 10 mg SLOW IVP Q4H PRN PRN Reason: SBP > 170 or DBP > 100 Last Admin: 11/17/16 19:49 Dose: 10 mg Dextrose/Water (D5w) 1,000 mls @ 0 mls/hr IV .Q0M PRN; As Directed PRN Reason: Hypoglycemia Meropenem 1 gm/ Sodium (Chloride) 100 mls @ 200 mls/hr IVPB 0500,1300,2100 [facility] Last Admin: 11/22/16 13:00 Dose: 100 mls Metronidazole 500 mg/ Device 100 mls @ 100 mls/hr IVPB 0200,1000,1800 [facility] Last Admin: 11/22/16 08:58 Dose: 100 mls Vancomycin HCl 1 gm/ Device 200 mls @ 200 mls/hr IVPB 1000,2200 [facility] Last Admin: 11/22/16 10:31 Dose: 200 mls Lactated Ringer's (Lactated Ringer's) 1,000 mls @ 40 mls/hr IV .Q24H [facility] Last Admin: 11/22/16 10:31 Dose: 1,000 mls Insulin Human Regular (Humulin R) 0 units SC .MODERATE SLIDING SC PRN; Protocol PRN Reason: MODERATE SLIDING SCALE Last Admin: 11/18/16 17:40 Dose: 2 unit Insulin Human Regular (Humulin R) 0 units SC .BEDTIME SLIDING SC PRN; Protocol PRN Reason: BEDTIME SLIDING SCALE Labetalol HCl (Normodyne) 20 mg SLOW IVP Q1H PRN PRN Reason: SBP Greater Than 180 Miscellaneous Medication (Pharmacy To Dose) 0 each IVPB PRN PRN PRN Reason: [facility] Pharmacy to Dose Ondansetron HCl (Zofran) 4 mg IVP Q4H PRN PRN Reason: Nausea/Vomiting Last Admin: 11/18/16 17:25 Dose: 4 mg Pantoprazole Sodium (Protonix) 40 mg IVP Q12HR [facility] Last Admin: 11/22/16 08:56 Dose: 40 mg Pregabalin (Lyrica) 50 mg PO BID [facility] Last Admin: 11/22/16 08:56 Dose: 50 mg Sodium Chloride (Flush - Normal Saline) 10 ml IVF Q12HR [facility] Last Admin: 11/22/16 08:57 Dose: 10 ml Sodium Chloride (Flush - Normal Saline) 10 ml IVF PRN PRN PRN Reason: Saline Flush Last Admin: 11/13/16 11:06 Dose: 10 ml Sodium Chloride (Flush - Normal Saline) 5 ml IVF BID [facility] Last Admin: 11/22/16 08:57 Dose: Not Given
[2016-11-22] MEDS: Acetaminophen 500 MG TAB PO PRN (18:29)
[2016-11-23] MEDS: metroNIDAZOLE 500 MG in Premix Bag 1 BAG IVPB SCH ×2 (01:58→09:11)
[2016-11-23] MEDS: Acetaminophen 500 MG TAB PO PRN ×3 (02:02→20:31)
[2016-11-23] MEDS: Meropenem 1 GM in Sodium Chloride 0.9% 100 ML IVPB SCH (05:19)
[2016-11-23 05:57] LABS: #Eosinphils 0.2 thou/uL (0.0-0.7); #Lymphocytes 1.3 thou/uL (1.20-3.40); #Monocytes 0.5 thou/uL (0.11-0.59); #Neutrophils 4.3 thou/uL (1.40-6.50); %Basophils 0.5 % (0.0-1.0); %Eosinophils 3.7 % (0.0-10.0); %Lymphocytes 20.3 % (21.0-51.0); %Monocytes 7.3 % (0.0-10.0); Hematocrit 29.1 % (36.0-47.0); Mean Platelet Volume 7.8 fL (7.4-10.4); Red Blood Cell (RBC) Count 3.13 mill/uL (4.20-5.40); White Blood Cell (WBC) Count 6.3 thou/uL (4.8-10.8)
[2016-11-23 06:11] LABS: Anion Gap 9 mmol/L (10-20); BUN (Urea Nitrogen) 21 mg/dL (9.8-20.1); Calc. Creatinine Clearance 186 mL/min (70-130); Calcium 8.9 mg/dL (7.8-10.44); Carbon Dioxide 29 mmol/L (23-31); Chloride 100 mmol/L (98-107); Estimated GFR-MDRD Greater than 90; Magnesium 1.5 mg/dL (1.6-2.6); Phosphorus 3.9 mg/dL (2.3-4.7)
[2016-11-23] MEDS: Pantoprazole 40 MG VIAL IVP SCH (09:10)
[2016-11-23] MEDS: Pregabalin 50 MG CAP PO SCH ×2 (09:10→20:32)
[2016-11-23] MEDS: Vancomycin HCl 1 GM in Premix Bag 1 BAG IVPB SCH (09:11)
[2016-11-23] MEDS: Enoxaparin Sodium 40 MG/0.4 ML SYRINGE SC SCH (09:12)
[2016-11-23 09:45] LABS: #Eosinphils 0.2 thou/uL (0.0-0.7); #Lymphocytes 1.5 thou/uL (1.20-3.40); #Monocytes 0.5 thou/uL (0.11-0.59); #Neutrophils 4.8 thou/uL (1.40-6.50); %Basophils 0.1 % (0.0-1.0); %Eosinophils 2.3 % (0.0-10.0); %Lymphocytes 21.2 % (21.0-51.0); %Monocytes 7.6 % (0.0-10.0); Hematocrit 30.4 % (36.0-47.0); Mean Platelet Volume 7.7 fL (7.4-10.4); Red Blood Cell (RBC) Count 3.27 mill/uL (4.20-5.40)
[2016-11-23] MEDS ORDERED: Lisinopril 10 MG TAB PO SCH (09:45)
[2016-11-23] MEDS ORDERED: Magnesium Chloride 64 MG TAB PO SCH (09:45)
[2016-11-23 10:10] LABS: Vancomycin, Trough 15.4 ug/mL
[2016-11-23] MEDS: Lactated Ringer's 1,000 ML IV SCH (10:41)
--- NOTE | 2016-11-23 14:58 | CON ---
DATE OF CONSULTATION: 11/23/2016 HISTORY OF PRESENT ILLNESS: A 71-year-old patient who has history of obesity, hypertension, type 2 diabetes, and some form of colon perforation in the 90s, which required left hemicolectomy or right hemicolectomy, I am not sure which. The patient since then has developed recurrent episodes of small-bowel obstruction and hernias and has had previous interventions with mesh placement. The mesh has been removed, the least part of it and then was admitted on 10/24 with another episode of SBO eventually required surgical intervention, which was carried out by Dr. Raza, and it was a complex procedure because of the amount of adhesions and turned out she required resection of a long segment of small bowel. Since then, the patient has been managed; however, had G-tube placed to improve nutritional status with enteric feedings. She has been receiving broad spectrum antimicrobial therapy until yesterday, I believe. Initial peritoneal fluid cultures with polymicrobial raji as expected including Enterobacter and anaerobes lactobacillus. The Enterobacter had a fairly broad susceptibility profile. The patient had recrudescence of the inflammatory process with repeat CT scan showing few abscesses which were drained percutaneously. Currently, Ms. Walton has been readied for transfer to rehabilitation. She is awake, alert, and somewhat apprehensive. No headaches, visual symptoms, sore throat, odynophagia, dysphagia, no dyspnea or chest pain. Mild abdominal tenderness. She is voiding spontaneously and has had some bowel activity for the past few days. No neurological symptoms. PAST MEDICAL HISTORY: Obesity, diabetes type 2, DJD, hyperlipidemia, hypertension, prior diverticulitis with perforation which required partial colectomy and then recurring complications related to SBO with adhesions, which required since sometimes conservative management only and sometimes more aggressive intervention, mesh placement and removal after infection, bilateral TKR. ALLERGIES: None. CURRENT MEDICATIONS: Include Tylenol, DuoNeb, Wellbutrin, Lovenox, glucagon, Apresoline, insulin, normal diet Zestril, Lyrica, Zofran and the antimicrobials have been discontinued. PHYSICAL EXAMINATION: VITAL SIGNS: Essentially normal, T-max 98.4-99.5, blood pressure 130/81, pulse of 96, respirations 16-20, O2 sat 99%. GENERAL APPEARANCE: Appears in no distress. The patient has a midline dressing and she has a central line right subclavian region and gastrostomy tube. Photo of the wound shows really nice 100% granulating base. There is a little maceration in the perianal area and the patient has no lymphadenopathy. HEENT: Ocular movements are conjugate. Sclerae are white, conjunctivae little bit pale. Oral cavity with very moist, numerous teeth in place with expected gum disease. NECK: Supple. No jugular venous distention. LUNGS: With symmetric clear breath sounds. HEART: S1, S2, regular rate. No S3 or S4. ABDOMEN: Soft, not distended or tender. No ascites, not much in terms of distention. Bowel sounds are present. No Quick catheter. No bladder distention. EXTREMITIES: No joint inflammatory activity noted. She moves extremities on command, but she is diffusely weak. Pulses are 1+ in dorsalis pedis and plantar responses are flexure. NEUROLOGIC: Cognitive function appears to be intact. LABORATORY DATA: White cell count is down to 7.0, hemoglobin 9.7, MCV 92, platelets 331 with normal differential and creatinine 0.54, sodium 133. The aspirate from the abdomen done by Radiology with 14,000 WBCs with predominance of neutrophils. Most recent cultures from the abdominal abscess, negative, final results, C. diff with positive antigen, negative toxin. ASSESSMENT: 1. Obesity with diabetes type 2. 2. Prior hemicolectomy with recurrent episodes of bowel obstruction, some managed conservatively, some require intervention. 3. Recrudescence of small bowel obstruction with requirement for extensive procedure with adhesiolysis. Some enterotomies occurred during the procedure. Patient subsequently developed intraabdominal abscess which were percutaneously drained. Microbiology of the original process is expected polymicrobial. Patient has received broad spectrum coverage with meropenem, metronidazole, and vancomycin. This was discontinued yesterday. DISCUSSION: At this point, there is clearcut evidence of improvement in the inflammatory process. The cultures from the aspirates were negative. In general, whenever there is proper source control, the duration of antimicrobial therapy required is short, usually not more than few days. Going forward, should continue monitoring her inflammatory markers evidently and clinical findings for recrudescence of an inflammatory process. In that case, then reimage would be required as well as blood cultures. The patient still has a central line in place and if possible, then I would recommend discontinuation of central line prior to transfer to rehabilitation. [facility]
--- NOTE | 2016-11-23 15:07 | PDOC.PN ---
- Subjective Encounter Start Date: 11/23/16 Encounter Start Time: 11:15 Subjective: awake, oriented well -: no sob or abd pain -: has not ambulated per pt - Objective MAR Reviewed: Yes Vital Signs & Weight: Vital Signs (12 hours) Temp Pulse Resp BP BP Pulse Ox 11/23/16 12:20 98.2 F 96 20 134/81 99 11/23/16 11:29 173/90 H 11/23/16 08:15 98.2 F 96 20 143/80 H 98 11/23/16 04:35 98.0 F 100 16 145/83 H 99 Weight Admit Weight 224 lb 13.936 oz Weight 274 lb Most Recent Monitor Data Heart Rate from ECG 94 NIBP 140/69 NIBP BP-Mean 91 Respiration from ECG 96 SpO2 96 I&O: 11/22/16 11/23/16 11/24/16 06:59 06:59 06:59 Intake Total 3700 1410 Balance 3700 1410 Result Diagrams: 11/23/16 09:35 11/23/16 05:44 Additional Labs: Accuchecks 11/23/16 11/23/16 11/23/16 12:04 05:33 00:17 POC Glucose 138 H 156 H 144 H 11/22/16 11/22/16 11/21/16 17:48 11:50 23:19 POC Glucose 131 H 159 H 135 H Phys Exam - Physical Examination HEENT: PERRLA, moist MMs Neck: no JVD, supple Respiratory: no wheezing, no rales Cardiovascular: RRR, no significant murmur Gastrointestinal: soft, non-tender, positive bowel sounds Musculoskeletal: pulses present, edema present Neurological: non-focal, moves all 4 limbs Psychiatric: A&O x 3 Dx/Plan (1) Abdominal abscess Code(s): K65.1 - PERITONEAL ABSCESS Status: Acute Comment: s/p CT guided aspiration, cultures are -ve, likely seroma (2) C. difficile diarrhea Code(s): A04.7 - ENTEROCOLITIS DUE TO CLOSTRIDIUM DIFFICILE Status: Resolved (3) Physical deconditioning Code(s): R53.81 - OTHER MALAISE Status: Acute (4) SBO (small bowel obstruction) Code(s): K56.69 - OTHER INTESTINAL OBSTRUCTION Status: Acute Comment: s/p laparotomy, excision of 140cms of small bowel, adhesiolysis and repair of internal hernia on 10/24/16 (5) Diabetes type 2, controlled Code(s): E11.9 - TYPE 2 DIABETES MELLITUS WITHOUT COMPLICATIONS Status: Chronic Qualifiers: Diabetes mellitus complication status: with unspecified complications Diabetes mellitus halfway insulin use: with halfway use Qualified Code(s) : E11.8 - Type 2 diabetes mellitus with unspecified complications; Z79.4 - residential (current) use of insulin (6) Dyslipidemia Code(s): E78.5 - HYPERLIPIDEMIA, UNSPECIFIED Status: Chronic (7) Hypertension Code(s): I10 - ESSENTIAL (PRIMARY) HYPERTENSION Status: Chronic Qualifiers: Hypertension type: essential hypertension Qualified Code(s): I10 - Essential (primary) hypertension (8) Morbid obesity with BMI of 40.0-44.9, adult Code(s): E66.01 - MORBID (SEVERE) OBESITY DUE TO EXCESS CALORIES; Z68.41 - BODY MASS INDEX (BMI) 40.0-44.9, ADULT Status: Chronic (9) Depression Code(s): F32.9 - MAJOR DEPRESSIVE DISORDER, SINGLE EPISODE, UNSPECIFIED Status : Acute Qualifiers: Depression Type: unspecified Qualified Code(s): F32.9 - Major depressive disorder, single episode, unspecified - Plan d/w -: initiated on welbutrin bid small dose, may hold if she gets lethargic -: to work with PT and mobilize more -: off all antibiotics -: dc plan is to rehab, encourage po intake * . Review of Systems - Medications/Allergies Allergies/Adverse Reactions: Allergies Allergy/AdvReac Type Severity Reaction Status Date / Time No Known Allergies Allergy Verified 10/24/16 06:40 Medications: Current Medications Acetaminophen (Tylenol) 1,000 mg PO Q6H PRN PRN Reason: Fever > 101 Last Admin: 11/23/16 09:10 Dose: 1,000 mg Albuterol/Ipratropium (Duoneb) 3 ml NEB Q4H PRN PRN Reason: Wheezing Bupropion HCl (Wellbutrin) 75 mg PO BID [facility] Dextrose/Water (Dextrose 50%) 25 gm SLOW IVP PRN PRN PRN Reason: Hypoglycemia Enoxaparin Sodium (Lovenox) 40 mg SC 0900 [facility] Last Admin: 11/23/16 09:12 Dose: 40 mg Glucagon (Glucagon) 1 mg IM PRN PRN PRN Reason: Hypoglycemia Hydralazine HCl (Apresoline) 10 mg SLOW IVP Q4H PRN PRN Reason: SBP > 170 or DBP > 100 Last Admin: 11/17/16 19:49 Dose: 10 mg Dextrose/Water (D5w) 1,000 mls @ 0 mls/hr IV .Q0M PRN; As Directed PRN Reason: Hypoglycemia Insulin Human Regular (Humulin R) 0 units SC .MODERATE SLIDING SC PRN; Protocol PRN Reason: MODERATE SLIDING SCALE Last Admin: 11/18/16 17:40 Dose: 2 unit Insulin Human Regular (Humulin R) 0 units SC .BEDTIME SLIDING SC PRN; Protocol PRN Reason: BEDTIME SLIDING SCALE Labetalol HCl (Normodyne) 20 mg SLOW IVP Q1H PRN PRN Reason: SBP Greater Than 180 Lisinopril (Zestril) 10 mg PO DAILY [facility] Magnesium Chloride (Slow-Mag) 64 mg PO DAILY [facility] Metformin HCl (Glucophage) 500 mg PO BID[facility] Ondansetron HCl (Zofran) 4 mg IVP Q4H PRN PRN Reason: Nausea/Vomiting Last Admin: 11/18/16 17:25 Dose: 4 mg Pregabalin (Lyrica) 50 mg PO BID [facility] Last Admin: 11/23/16 09:10 Dose: 50 mg Sodium Chloride (Flush - Normal Saline) 10 ml IVF Q12HR [facility] Last Admin: 11/23/16 09:12 Dose: 10 ml Sodium Chloride (Flush - Normal Saline) 10 ml IVF PRN PRN PRN Reason: Saline Flush Last Admin: 11/22/16 20:13 Dose: 10 ml Sodium Chloride (Flush - Normal Saline) 5 ml IVF BID [facility] Last Admin: 11/23/16 09:12 Dose: Not Given
[2016-11-23] MEDS: buPROPion HCl 75 MG TAB PO SCH (20:31)
[2016-11-24] MEDS: Acetaminophen 500 MG TAB PO PRN (02:49)
[2016-11-24 05:35] VITALS: BMI 43.6
[2016-11-24 05:42] LABS: #Eosinphils 0.2 thou/uL (0.0-0.7); #Lymphocytes 1.6 thou/uL (1.20-3.40); #Monocytes 0.5 thou/uL (0.11-0.59); %Basophils 0.2 % (0.0-1.0); %Eosinophils 2.3 % (0.0-10.0); %Lymphocytes 19.5 % (21.0-51.0); %Monocytes 6.3 % (0.0-10.0); Hematocrit 31.1 % (36.0-47.0); Mean Platelet Volume 7.6 fL (7.4-10.4); Red Blood Cell (RBC) Count 3.34 mill/uL (4.20-5.40); White Blood Cell (WBC) Count 8.3 thou/uL (4.8-10.8)
[2016-11-24] MEDS ORDERED: Lisinopril 10 MG TAB PO SCH (09:00)
[2016-11-24] MEDS ORDERED: Magnesium Chloride 64 MG TAB PO SCH (09:00)
[2016-11-24] MEDS: buPROPion HCl 75 MG TAB PO SCH (09:27)
[2016-11-24] MEDS: Pregabalin 50 MG CAP PO SCH (09:27)
[2016-11-24] MEDS: Enoxaparin Sodium 40 MG/0.4 ML SYRINGE SC SCH (09:29)
--- NOTE | 2016-11-24 14:29 | PDOC.PN ---
- Subjective Encounter Start Date: 11/24/16 Encounter Start Time: 11:15 Subjective: awake, not in distress - Objective MAR Reviewed: Yes Vital Signs & Weight: Vital Signs (12 hours) Temp Pulse Resp BP Pulse Ox 11/24/16 12:45 98.5 F 110 H 16 146/80 H 98 11/24/16 09:00 98.2 F 108 H 14 157/84 H 96 11/24/16 08:00 98.2 F 108 H 14 11/24/16 04:00 98.2 F 108 H 20 133/82 96 Weight Admit Weight 224 lb 13.936 oz Weight 270 lb 6.4 oz Most Recent Monitor Data Heart Rate from ECG 94 NIBP 140/69 NIBP BP-Mean 91 Respiration from ECG 96 SpO2 96 I&O: 11/23/16 11/24/16 11/25/16 06:59 06:59 06:59 Intake Total 1410 750 50 Balance 1410 750 50 Result Diagrams: 11/24/16 05:20 11/23/16 05:44 Additional Labs: Accuchecks 11/24/16 11/24/16 11/23/16 12:08 05:20 23:55 POC Glucose 141 H 137 H 123 H 11/23/16 18:05 POC Glucose 118 H Phys Exam - Physical Examination HEENT: PERRLA, moist MMs Neck: no JVD, supple Respiratory: no wheezing, no rales Cardiovascular: RRR, no significant murmur Gastrointestinal: soft, positive bowel sounds wound vac+ Musculoskeletal: no edema, pulses present Neurological: non-focal, moves all 4 limbs bit emotional with occasional tearing Dx/Plan (1) Physical deconditioning Code(s): R53.81 - OTHER MALAISE Status: Acute (2) Abdominal abscess Code(s): K65.1 - PERITONEAL ABSCESS Status: Acute Comment: s/p CT guided aspiration, cultures are -ve, likely seroma (3) SBO (small bowel obstruction) Code(s): K56.69 - OTHER INTESTINAL OBSTRUCTION Status: Acute Comment: s/p laparotomy, excision of 140cms of small bowel, adhesiolysis and repair of internal hernia on 10/24/16 (4) Diabetes type 2, controlled Code(s): E11.9 - TYPE 2 DIABETES MELLITUS WITHOUT COMPLICATIONS Status: Chronic Qualifiers: Diabetes mellitus complication status: with unspecified complications Diabetes mellitus detention insulin use: with technician terminal and repeater use Qualified Code(s) : E11.8 - Type 2 diabetes mellitus with unspecified complications; Z79.4 - custodial (current) use of insulin (5) Dyslipidemia Code(s): E78.5 - HYPERLIPIDEMIA, UNSPECIFIED Status: Chronic (6) Hypertension Code(s): I10 - ESSENTIAL (PRIMARY) HYPERTENSION Status: Chronic Qualifiers: Hypertension type: essential hypertension Qualified Code(s): I10 - Essential (primary) hypertension (7) Morbid obesity with BMI of 40.0-44.9, adult Code(s): E66.01 - MORBID (SEVERE) OBESITY DUE TO EXCESS CALORIES; Z68.41 - BODY MASS INDEX (BMI) 40.0-44.9, ADULT Status: Chronic (8) Depression Code(s): F32.9 - MAJOR DEPRESSIVE DISORDER, SINGLE EPISODE, UNSPECIFIED Status : Acute Qualifiers: Depression Type: unspecified Qualified Code(s): F32.9 - Major depressive disorder, single episode, unspecified (9) C. difficile diarrhea Code(s): A04.7 - ENTEROCOLITIS DUE TO CLOSTRIDIUM DIFFICILE Status: Resolved - Plan hemostable -: encourage po intake -: needs constant encouragement to participate with PT -: dc plan per gen surg advice to inpt rehab -: is on welbutrin low dose, not sedated and is tolerating it well * . Review of Systems - Medications/Allergies Allergies/Adverse Reactions: Allergies Allergy/AdvReac Type Severity Reaction Status Date / Time No Known Allergies Allergy Verified 10/24/16 06:40 Medications: Current Medications Acetaminophen (Tylenol) 1,000 mg PO Q6H PRN PRN Reason: Fever > 101 Last Admin: 11/24/16 02:49 Dose: 1,000 mg Albuterol/Ipratropium (Duoneb) 3 ml NEB Q4H PRN PRN Reason: Wheezing Bupropion HCl (Wellbutrin) 75 mg PO BID [facility] Last Admin: 11/24/16 09:27 Dose: 75 mg Dextrose/Water (Dextrose 50%) 25 gm SLOW IVP PRN PRN PRN Reason: Hypoglycemia Enoxaparin Sodium (Lovenox) 40 mg SC 0900 [facility] Last Admin: 11/24/16 09:29 Dose: 40 mg Glucagon (Glucagon) 1 mg IM PRN PRN PRN Reason: Hypoglycemia Hydralazine HCl (Apresoline) 10 mg SLOW IVP Q4H PRN PRN Reason: SBP > 170 or DBP > 100 Last Admin: 11/17/16 19:49 Dose: 10 mg Dextrose/Water (D5w) 1,000 mls @ 0 mls/hr IV .Q0M PRN; As Directed PRN Reason: Hypoglycemia Insulin Human Regular (Humulin R) 0 units SC .MODERATE SLIDING SC PRN; Protocol PRN Reason: MODERATE SLIDING SCALE Last Admin: 11/18/16 17:40 Dose: 2 unit Insulin Human Regular (Humulin R) 0 units SC .BEDTIME SLIDING SC PRN; Protocol PRN Reason: BEDTIME SLIDING SCALE Labetalol HCl (Normodyne) 20 mg SLOW IVP Q1H PRN PRN Reason: SBP Greater Than 180 Lisinopril (Zestril) 10 mg PO DAILY [facility] Last Admin: 11/24/16 09:27 Dose: 10 mg Magnesium Chloride (Slow-Mag) 64 mg PO DAILY [facility] Last Admin: 11/24/16 09:26 Dose: 64 mg Metformin HCl (Glucophage) 500 mg PO BID[facility] Last Admin: 11/24/16 09:27 Dose: 500 mg Ondansetron HCl (Zofran) 4 mg IVP Q4H PRN PRN Reason: Nausea/Vomiting Last Admin: 11/18/16 17:25 Dose: 4 mg Pregabalin (Lyrica) 50 mg PO BID [facility] Last Admin: 11/24/16 09:27 Dose: 50 mg Sodium Chloride (Flush - Normal Saline) 10 ml IVF Q12HR [facility] Last Admin: 11/24/16 12:17 Dose: 10 ml Sodium Chloride (Flush - Normal Saline) 10 ml IVF PRN PRN PRN Reason: Saline Flush Last Admin: 11/23/16 20:31 Dose: 10 ml Sodium Chloride (Flush - Normal Saline) 5 ml IVF BID [facility] Last Admin: 11/24/16 12:18 Dose: 5 ml
[2016-11-24 17:21] VITALS: BP 136/83; TEMP 97.8
--- NOTE | 2016-11-25 00:36 | DIS ---
DATE OF ADMISSION: 10/24/2016 DATE OF DISCHARGE: 11/24/2016 DISCHARGE DISPOSITION: To inpatient rehabilitation. PRIMARY DISCHARGE DIAGNOSES: Small-bowel obstruction, peritonitis, status post laparotomy with excision of 140 cm of small bowel, adhesiolysis, and repair of internal hernia done on 10/24/2016. Suspected abdominal abscess, likely seroma with cultures being negative, severe deconditioning, depression, morbid obesity , hypotension, dyslipidemia, diabetes mellitus type 2. PROCEDURES DONE DURING HOSPITALIZATION: The patient has had exploratory laparotomy with small-bowel resection and removal of nearly 140 cm of small intestine, repair of complex incisional hernia, all of this done by Dr. Raza on 10/24/2016. Upper endoscopy done showed multiple proximal gastric ulcers without active bleeding. No visible vessels were seen. She has had nuclear bleeding scan done, which showed no evidence of active gastrointestinal bleed. Again, this was done on 10/31/2016. CT angiogram of abdominal and thoracic aorta done showed no evidence of central pulmonary artery embolism. No evidence of aneurysm or dissection in the aorta. Fluid filled small-bowel loops with mild prominence. Ultrasound venous Doppler of lower extremities done on 11/10/2016 showed no deep venous thrombosis. She has had CT-guided left peritoneal abscess drainage done on 11/16/2016 by Interventional Radiology. She also had a drainage catheter placed in the left peritoneal collection. A CT of the abdomen and pelvis with IV contrast done on the same day that is 11/16/2016 showed peripherally enhancing fluid collections within the anterior aspect of the abdominal cavity measuring 12.2 x 2.3 x 10.7 cm. This was seen just superior to the patient's small-bowel anastomosis. There was an additional peripherally enhancing fluid within the left upper quadrant of the abdomen just deep to the splenic flexure measuring 4.7 x 7.2 cm. The patient has had PEG tube placed on 11/21/[address] Raza. Blood cultures x2 no growth. Urine culture grew E. coli. Stool for C. diff was antigen positive, toxin negative on 11/17/2016. On 11/23/2016, Clostridium difficile was negative for both toxin and antigen. H\T\H on the day of discharge 10 and 31 with platelet count of 394, white count of 8. Discharge BUN and creatinine is 21 and 0.5. Serum albumin was 2.2 on 11/20/2016. Triglycerides 188. DISCHARGE MEDICATIONS: Lipitor 10 mg p.o. daily, Lovenox 40 mg subcu daily for DVT prophylaxis until she can ambulate, vitamin D3 at 400 units p.o. daily, DuoNebs q.4 hourly p.r.n., Zestril 10 mg p.o. daily, magnesium oxide 400 mg p.o. daily, Myrbetriq 50 mg p.o. daily, multivitamin 1 capsule daily, Lyrica 50 mg p.o. twice daily, bupropion 75 mg p.o. twice daily, metformin 500 mg p.o. twice daily, Ultram p.r.n. for pain q.6 hourly. ALLERGIES: No known drug allergies. DISCHARGE PLAN: The patient to follow up with Dr. Raza as advised. BRIEF COURSE DURING HOSPITALIZATION: The patient initially got admitted by Dr. Raza on the for abdominal pain, nausea, vomiting, and high suspicion for small-bowel obstruction. She subsequently went for exploratory laparotomy and has had nearly 140 cm of her small intestine removed. Postop, the patient was placed in ICU for hypotension. She was also septic with peritonitis. The patient has had GI consultation for GI bleed and has had upper endoscopy with subsequent abdominal angiograms and nuclear scan done, which did not reveal any active bleeding. The patient was on TPN and later switched over to PEG tube feeding. She was also depressed and was placed on welbutrin, this can be escalated to desired response in the outpt setting. An alternative would be to start her on an SSRI, which would take 3-4 weeks to take effect. She is currently having poor oral intake and is supplemented with PEG feeding. The patient needs a lot of motivation to do physical therapy and has to get out of bed and start ambulating. Her abdominal wound is still in wound VAC. She is being discharged to inpatient rehab for further recuperation prior to going home. A total of 45 minutes was spent on the discharge plan. Please see a face-to- face documentation on [employer] for the day of discharge. [facility]
--- NOTE | 2016-11-25 08:10 | OP ---
DATE OF PROCEDURE: 11/21/2016 PREOPERATIVE DIAGNOSES: Dysphagia, inadequate oral intake. POSTOPERATIVE DIAGNOSES: Dysphagia, inadequate oral intake. OPERATIONS PERFORMED: Percutaneous endoscopic gastrostomy tube placement, esophagogastroduodenoscop y. SURGEON: Cristian Raza M.D. ANESTHESIA: Total intravenous anesthesia with local using 1% lidocaine. INDICATIONS: The patient is a 71-year-old white female who was about 4 weeks status post surgery fo r a small bowel obstruction. Due to a combination of factors, she has remained in the hospital and is still unable to take adequate oral intake to avoid need for parenteral nutrition. PEG tube place ment is recommended to allow adequate enteral nutrition. DESCRIPTION OF OPERATION: Informed consent was obtained. The patient was taken to the operating ro om where total intravenous anesthesia was obtained with the patient in supine position. Gastroscope was advanced through the mouth down into the stomach uneventfully. The stomach was insufflated and inspected and found to be without irregularity. The scope was passed into the duodenum and the fir st and second portions were inspected, again without irregularity. Scope was returned to the body o f the stomach. I was able to clearly visualize compression on the abdominal wall on the anterior as pect of the stomach. A site was selected in the left upper quadrant and local anesthetic was infilt rated after the area was prepped with Betadine. A small stab incision was created and Angiocath was advanced under vision into the gastric lumen. The guidewire was passed through the Angiocath, whic h was grasped using the snare and withdrawn through the mouth. The guidewire was fixed to the PEG t ube and the complex was pulled back through the abdominal wall in the usual fashion until the mushro om was snug against the anterior gastric wall. The external flange was placed along with Betadine o intment and split gauze dressing. The external connections were attached in the usual fashion. The re were no complications and no blood loss. The patient tolerated the procedure well and was taken to the recovery room in stable condition.
== END 2016-11-24 20:25 | disposition swing bed (61) | DRG 329 ==
LOC: ERS 03:22 → SJJU 04:00 → CCU 19:39 → IMCU/EMU 10-28 13:23 → SURG A 11-08 23:24
PROVIDERS: ADMIT Specialist; ATTEND Specialist
PROC: 0DB80ZZ Excision of Small Intestine, Open Approach (ICD-10-PCS; principal; 2016-10-24)
PROC: 0WQF0ZZ Repair Abdominal Wall, Open Approach (ICD-10-PCS; 2016-10-24)
PROC: 02HV33Z Insertion of Infusion Device into Superior Vena Cava, Percutaneous Approach (ICD-10-PCS; 2016-10-24)
PROC: 30233N1 Transfusion of Nonautologous Red Blood Cells into Peripheral Vein, Percutaneous Approach (ICD-10-PCS; 2016-10-29)
PROC: 3E0336Z Introduction of Nutritional Substance into Peripheral Vein, Percutaneous Approach (ICD-10-PCS; 2016-10-30)
PROC: 0DJ08ZZ Inspection of Upper Intestinal Tract, Via Natural or Artificial Opening Endoscopic (ICD-10-PCS; 2016-10-31)
PROC: 0W9G3ZZ Drainage of Peritoneal Cavity, Percutaneous Approach (ICD-10-PCS; 2016-11-16)
PROC: 0DH63UZ Insertion of Feeding Device into Stomach, Percutaneous Approach (ICD-10-PCS; 2016-11-21)
DX: K43.0 Incisional hernia with obstruction, without gangrene (principal); A41.9 Sepsis, unspecified organism; J96.01 Acute respiratory failure with hypoxia; R65.20 Severe sepsis without septic shock; G93.40 Encephalopathy, unspecified; K65.9 Peritonitis, unspecified; J18.1 Lobar pneumonia, unspecified organism; E86.9 Volume depletion, unspecified; N17.9 Acute kidney failure, unspecified; N39.0 Urinary tract infection, site not specified; A04.7 Enterocolitis due to Clostridium difficile; Z68.41 Body mass index [BMI] 40.0-44.9, adult; D62 Acute posthemorrhagic anemia; E87.0 Hyperosmolality and hypernatremia; E87.1 Hypo-osmolality and hyponatremia; K91.872 Postprocedural seroma of a digestive system organ or structure following a digestive system procedure; K56.7 Ileus, unspecified; B95.4 Other streptococcus as the cause of diseases classified elsewhere; E11.9 Type 2 diabetes mellitus without complications; B96.89 Other specified bacterial agents as the cause of diseases classified elsewhere; B96.7 Clostridium perfringens [C. perfringens] as the cause of diseases classified elsewhere; B96.20 Unspecified Escherichia coli [E. coli] as the cause of diseases classified elsewhere; Z79.84 Long term (current) use of oral hypoglycemic drugs; I10 Essential (primary) hypertension; E78.00 Pure hypercholesterolemia, unspecified; E66.01 Morbid (severe) obesity due to excess calories; M19.90 Unspecified osteoarthritis, unspecified site; Z96.653 Presence of artificial knee joint, bilateral; Z23 Encounter for immunization; Z90.49 Acquired absence of other specified parts of digestive tract; R41.0 Disorientation, unspecified; R00.0 Tachycardia, unspecified; E87.70 Fluid overload, unspecified; E87.6 Hypokalemia; F32.9 Major depressive disorder, single episode, unspecified; R13.10 Dysphagia, unspecified; Y83.8 Other surgical procedures as the cause of abnormal reaction of the patient, or of later complication, without mention of misadventure at the time of the procedure; K25.9 Gastric ulcer, unspecified as acute or chronic, without hemorrhage or perforation
CPT/HCPCS: 36415; 36416; 36430; 49020; 70450; 71010; 71275; 74000; 74020; 74174; 74177; 76770; 77002; 78278; 80048; 80053; 80061; 80202; 82040; 82274; 82553; 83735; 84100; 84134; 84484; 85025; 85060; 85379; 85610; 85730; 86850; 86900; 86901; 87040; 87070; 87076; 87077; 87086; 87186; 87205; 87324; 87449; 88307; 89051; 93005; 93010; 93970; 96374; A4216; A4217; A9604; C1729; C9113; G8978-GP-CL; G8978-GP-CM; G8979-GP-CJ; G8979-GP-CK; G8987-GO-CM; G8988-GO-CK; G8996-GN-CM; G8997-GN-CJ; J0131; J0360; J0694; J1650; J1815; J1885; J2001; J2185; J2250; J2270; J2405; J2543; J2550; J2704; J3010; J3370; J3430; J3475; J3480; J7042; J7050; J7120; P9016; P9045; S0028

== ENCOUNTER 2017-05-23 12:13 | Emergency (ER) | payer MEDICARE ==
--- NOTE | 2017-05-23 13:33 | CT ---
CT BRAIN WITHOUT CONTRAST: INDICATIONS: History of fall and hitting head. COMPARISON: Prior exam dated 10/30/2016. FINDINGS: No acute infarct, hemorrhage, or hydrocephalus present. The septum pellucidum and third ventricle ar e midline. The mastoid air cells are clear. The visualized paranasal sinuses are clear. The skull is intact. IMPRESSION: No acute intracranial abnormality. POS: PADILLA
--- NOTE | 2017-05-23 13:36 | CT ---
CT CERVICAL SPINE WITHOUT CONTRAST: HISTORY: Injury. COMPARISON: None. FINDINGS: The occipital condyles are intact. The uncinate process is intact. The skull base appears to be int act. The mastoids are well aerated. Mild exaggerated cervical lordosis. Severe facet arthropathy of the cervical spine. Moderate vascular calcifications of the carotid bulbs bilaterally. Lung apices are clear. The paraspinal soft tissues are unremarkable. Visualized portions of the clavicles are intact as well as the posterior ribs. IMPRESSION: Degenerative changes. No acute fracture or malalignment of the cervical spine. POS: OFF
[2017-05-23] MEDS ORDERED: Ketorolac Tromethamine 30 MG/ML VIAL ONE (14:51)
== END 2017-05-23 16:04 | disposition home or self-care (01) ==
LOC: ERS 12:13
DX: R51 Headache (principal); M54.9 Dorsalgia, unspecified; E11.40 Type 2 diabetes mellitus with diabetic neuropathy, unspecified; E78.5 Hyperlipidemia, unspecified; I10 Essential (primary) hypertension; W19.XXXA Unspecified fall, initial encounter
CPT/HCPCS: 70450; 72125; 96372; J1885

== ENCOUNTER 2020-05-13 15:37 | Inpatient (IN) | payer MEDICARE ==
[~2020-05-13 15:37] MED LIST: Iopamidol-370 76% 500 ML 1 ML ONE
[2020-05-13 16:24] LABS: #Basophils 0.1 thou/uL (0.0-0.2); #Lymphocytes 1.5 thou/uL (1.20-3.40); #Monocytes 0.5 thou/uL (0.11-0.59); #Neutrophils 4.6 thou/uL (1.40-6.50); %Eosinophils 0.6 % (0.0-10.0); %Lymphocytes 21.8 % (21.0-51.0); %Monocytes 7.5 % (0.0-10.0); %Neutrophils 69.2 % (42.0-75.0); Hemoglobin 13.6 g/dL (12.0-16.0); Mean Corpuscular HGB CONC 33.4 g/dL (32.0-36.0); Mean Corpuscular Hemoglobin 31.4 pg (27.0-31.0); Mean Corpuscular Volume 93.9 fL (78.0-98.0); Mean Platelet Volume 7.2 fL (7.4-10.4); Platelet Count 315 thou/uL (130-400); RBC Distribution Width 12.2 % (11.5-14.5); Red Blood Cell (RBC) Count 4.32 mill/uL (4.20-5.40); White Blood Cell (WBC) Count 6.7 thou/uL (4.8-10.8)
[2020-05-13] MEDS ORDERED: Ondansetron PF 4 MG/2 ML Vial ONE (16:42)
[2020-05-13 16:48] LABS: Bacteria/HPF None Seen HPF (None Seen); Bilirubin Negative (Negative); Blood, Urine Negative (Negative); Clarity Clear (Clear); Glucose, Urine (Dipstick) Normal (Negative); Ketone, Urine Negative (Negative); Leukocyte Negative Leu/uL (Negative); Nitrite Negative (Negative); Protein, Urine (Dipstick) 50 mg/dL (Neg-Trace); RBC/HPF 0-3 HPF (0-3); Specific Gravity, Urine 1.014 (1.002-1.036); Squamous Epithelial 0-3 HPF (0-3); Urobilinogen Normal mg/dL (Less than 2); WBC/HPF 0-3 HPF (0-3)
[2020-05-13 16:48] LABS: ALT (SGPT) 8 U/L (8-55); AST (SGOT) 20 U/L (5-34); Albumin 4.2 g/dL (3.4-4.8); Alkaline Phosphatase 37 U/L (40-110); Anion Gap 17 mmol/L (10-20); BUN (Urea Nitrogen) 10 mg/dL (9.8-20.1); Bilirubin, Total 0.9 mg/dL (0.2-1.2); Calc. Creatinine Clearance 0 mL/min (70-130); Calcium 10.1 mg/dL (7.8-10.44); Carbon Dioxide 22 mmol/L (23-31); Chloride 103 mmol/L (98-107); Globulin 3.7 g/dL (2.4-3.5); Glucose 103 mg/dL (83-110); Lipase 39 U/L (8-78); Potassium 3.6 mmol/L (3.5-5.1); Protein, Total 7.9 g/dL (5.8-8.1); Sodium 138 mmol/L (136-145)
[2020-05-13] MEDS ORDERED: Aspirin Chewable 81 MG TAB ONE (18:22)
[2020-05-13 18:52] LABS: Lactic Acid 0.8 mmol/L (0.5-2.2)
[2020-05-13 18:56] LABS: CRP (Inflammatory) Less than 0.50 mg/dL (= or < 0.5); Magnesium 1.5 mg/dL (1.6-2.6); Phosphorus 2.9 mg/dL (2.3-4.7)
[2020-05-13] MEDS ORDERED: Magnesium Sulfate 4 GM in Sodium Chloride 0.9% 250 ML 250 ML IVPB SCH (19:30)
[2020-05-13] MEDS ORDERED: Acetaminophen 650 MG Suppository PR PRN (21:13)
[2020-05-13] MEDS ORDERED: Dextrose 5% in Water 1,000 ML IV PRN (21:23)
[2020-05-13] MEDS ORDERED: Dextrose 50% Abboject 50 ML SYRINGE SLOW IVP PRN (21:23)
[2020-05-13] MEDS ORDERED: HumaLOG 300 UNITS/3 ML VIAL SC PRN ×2 (21:23)
[2020-05-13] MEDS ORDERED: hydrALAZINE 20 MG/ML VIAL ONE (21:34)
[2020-05-13] MEDS: hydrALAZINE 20 MG/ML VIAL SLOW IVP PRN (21:37)
[2020-05-14] MEDS: Acetaminophen 325 MG TAB PO PRN ×3 (03:31→18:37)
[2020-05-14 05:12] LABS: SARS-CoV-2 PCR by NAA Not Detected (NotDetected)
[2020-05-14 05:13] LABS: #Eosinphils 0.1 thou/uL (0.0-0.7); #Lymphocytes 1.4 thou/uL (1.20-3.40); #Monocytes 0.8 thou/uL (0.11-0.59); #Neutrophils 6.7 thou/uL (1.40-6.50); %Basophils 0.4 % (0.0-1.0); %Eosinophils 1.1 % (0.0-10.0); %Lymphocytes 15.2 % (21.0-51.0); %Monocytes 8.5 % (0.0-10.0); %Neutrophils 74.9 % (42.0-75.0); Hemoglobin 12.9 g/dL (12.0-16.0); Mean Corpuscular HGB CONC 33.2 g/dL (32.0-36.0); Mean Corpuscular Hemoglobin 31.1 pg (27.0-31.0); Mean Corpuscular Volume 93.8 fL (78.0-98.0); Mean Platelet Volume 7.3 fL (7.4-10.4); Platelet Count 314 thou/uL (130-400); RBC Distribution Width 12.2 % (11.5-14.5); Red Blood Cell (RBC) Count 4.13 mill/uL (4.20-5.40)
[2020-05-14 05:35] LABS: Anion Gap 14 mmol/L (10-20); BUN (Urea Nitrogen) 11 mg/dL (9.8-20.1); Calc. Creatinine Clearance 115 mL/min (70-130); Calcium 9.2 mg/dL (7.8-10.44); Carbon Dioxide 24 mmol/L (23-31); Cardiac Risk 3.5 (Less than 4.5); Chloride 104 mmol/L (98-107); Cholesterol 140 mg/dl (< 200 Desired); Glucose 118 mg/dL (83-110); HDL Cholesterol 40 mg/dL (>60 Neg Risk); LDL Cholesterol, Calculated 77 mg/dL; Magnesium 2.1 mg/dL (1.6-2.6); Potassium 3.5 mmol/L (3.5-5.1); Sodium 138 mmol/L (136-145); Triglycerides 116 mg/dL (Less than 150)
[2020-05-14] MEDS ORDERED: FLU VACC QS2020-21(65YR UP)/PF 240 MCG/0.7 ML SYRINGE IM ONE (09:00)
[2020-05-14] MEDS: Aspirin 81 mg Enteric Coated Tablet PO SCH (09:13)
[2020-05-14] MEDS: Lorazepam 0.5 MG TAB PO PRN ×2 (14:09→23:30)
[2020-05-14] MEDS ORDERED: Cyanocobalamin (Vitamin B-12) 1,000 MCG TAB PO SCH (18:30)
[2020-05-14] MEDS: hydrALAZINE 20 MG/ML VIAL SLOW IVP PRN (21:50)
[2020-05-14] MEDS: Atorvastatin Calcium 20 MG TAB PO SCH (21:56)
[2020-05-14] MEDS: traMADol HCl 50 MG TAB PO PRN (23:31)
[2020-05-15] MEDS: Cyanocobalamin (Vitamin B-12) 1,000 MCG TAB PO SCH (09:44)
[2020-05-15] MEDS: Lorazepam 0.5 MG TAB PO PRN (09:44)
[2020-05-15] MEDS: Cholecalciferol (Vitamin D3) 400 UNITS TAB PO SCH (09:44)
[2020-05-15] MEDS: Aspirin 81 mg Enteric Coated Tablet PO SCH (09:44)
[2020-05-15] MEDS: Calcium Carbonate 500 MG ChewTAB PO SCH (09:44)
[2020-05-15] MEDS: traMADol HCl 50 MG TAB PO PRN ×2 (09:45→20:14)
[2020-05-15] MEDS: Atorvastatin Calcium 20 MG TAB PO SCH (20:15)
[2020-05-16] MEDS: Ondansetron PF 4 MG/2 ML Vial IVP PRN ×2 (06:24→14:01)
[2020-05-16] MEDS: hydrALAZINE 20 MG/ML VIAL SLOW IVP PRN (06:32)
[2020-05-16] MEDS: traMADol HCl 50 MG TAB PO PRN ×2 (09:37→17:48)
[2020-05-16] MEDS: Calcium Carbonate 500 MG ChewTAB PO SCH (09:41)
[2020-05-16] MEDS: Cyanocobalamin (Vitamin B-12) 1,000 MCG TAB PO SCH (10:33)
[2020-05-16] MEDS: Aspirin 81 mg Enteric Coated Tablet PO SCH (10:37)
[2020-05-16] MEDS: Cholecalciferol (Vitamin D3) 400 UNITS TAB PO SCH (10:39)
[2020-05-16] MEDS: Acetaminophen 325 MG TAB PO PRN (12:41)
[2020-05-16] MEDS: Atorvastatin Calcium 20 MG TAB PO SCH (20:13)
[2020-05-17] MEDS: hydrALAZINE 20 MG/ML VIAL SLOW IVP PRN (01:32)
[2020-05-17] MEDS: traMADol HCl 50 MG TAB PO PRN ×3 (08:56→20:36)
[2020-05-17] MEDS: Aspirin 81 mg Enteric Coated Tablet PO SCH (09:57)
[2020-05-17] MEDS: Cholecalciferol (Vitamin D3) 400 UNITS TAB PO SCH (10:05)
[2020-05-17] MEDS: Calcium Carbonate 500 MG ChewTAB PO SCH (10:05)
[2020-05-17] MEDS: Cyanocobalamin (Vitamin B-12) 1,000 MCG TAB PO SCH (10:05)
[2020-05-17] MEDS ORDERED: Methocarbamol 500 MG TAB PO PRN (11:45)
[2020-05-17] MEDS: Acetaminophen 325 MG TAB PO PRN ×2 (12:07→20:37)
[2020-05-17] MEDS: Lidocaine 5% Patch TD SCH (12:08)
[2020-05-17] MEDS: Atorvastatin Calcium 20 MG TAB PO SCH (20:38)
[2020-05-18] MEDS: Transdermal Patch Removal TOP SCH ×2 (00:42→23:41)
[2020-05-18] MEDS: Acetaminophen 325 MG TAB PO PRN ×2 (05:19→11:34)
[2020-05-18] MEDS: traMADol HCl 50 MG TAB PO PRN ×3 (05:20→21:06)
[2020-05-18] MEDS: Aspirin 81 mg Enteric Coated Tablet PO SCH (08:50)
[2020-05-18] MEDS: Cholecalciferol (Vitamin D3) 400 UNITS TAB PO SCH (08:50)
[2020-05-18] MEDS: Cyanocobalamin (Vitamin B-12) 1,000 MCG TAB PO SCH (08:50)
[2020-05-18] MEDS: Calcium Carbonate 500 MG ChewTAB PO SCH (08:50)
[2020-05-18] MEDS ORDERED: Lidocaine 5% Patch TD SCH (09:00)
[2020-05-18] MEDS: Lidocaine 5% Patch TD SCH (11:34)
[2020-05-18] MEDS: Atorvastatin Calcium 20 MG TAB PO SCH (21:07)
[2020-05-18] MEDS: Senokot S 8.6-50 MG TAB PO PRN (21:15)
[2020-05-19] MEDS: Acetaminophen 325 MG TAB PO PRN ×2 (01:31→21:32)
[2020-05-19] MEDS: Aspirin 81 mg Enteric Coated Tablet PO SCH (08:37)
[2020-05-19] MEDS: traMADol HCl 50 MG TAB PO PRN ×2 (08:37→16:53)
[2020-05-19] MEDS: Cholecalciferol (Vitamin D3) 400 UNITS TAB PO SCH ×2 (08:38)
[2020-05-19] MEDS: Calcium Carbonate 500 MG ChewTAB PO SCH ×2 (08:38)
[2020-05-19] MEDS: Cyanocobalamin (Vitamin B-12) 1,000 MCG TAB PO SCH ×2 (08:38)
[2020-05-19] MEDS: Lidocaine 5% Patch TD SCH (11:33)
[2020-05-19] MEDS: Atorvastatin Calcium 20 MG TAB PO SCH (21:32)
[2020-05-20] MEDS: Transdermal Patch Removal TOP SCH (01:36)
[2020-05-20] MEDS: traMADol HCl 50 MG TAB PO PRN ×2 (09:35→16:26)
[2020-05-20] MEDS: Cholecalciferol (Vitamin D3) 400 UNITS TAB PO SCH (09:36)
[2020-05-20] MEDS: Cyanocobalamin (Vitamin B-12) 1,000 MCG TAB PO SCH (09:36)
[2020-05-20] MEDS: Acetaminophen 325 MG TAB PO PRN ×3 (09:36→20:57)
[2020-05-20] MEDS: Calcium Carbonate 500 MG ChewTAB PO SCH (09:36)
[2020-05-20] MEDS: Polyethylene Glycol 3350 17 GM Packet PO PRN (09:37)
[2020-05-20] MEDS: Aspirin 81 mg Enteric Coated Tablet PO SCH (09:37)
[2020-05-20] MEDS ORDERED: Lisinopril 10 MG TAB PO SCH (09:45)
[2020-05-20] MEDS: Lidocaine 5% Patch TD SCH (12:07)
[2020-05-20] MEDS: Atorvastatin Calcium 20 MG TAB PO SCH (20:59)
[2020-05-21] MEDS: Transdermal Patch Removal TOP SCH (02:39)
[2020-05-21 05:36] LABS: #Basophils 0.1 thou/uL (0.0-0.2); #Eosinphils 0.3 thou/uL (0.0-0.7); #Lymphocytes 1.6 thou/uL (1.20-3.40); #Monocytes 0.6 thou/uL (0.11-0.59); #Neutrophils 3.5 thou/uL (1.40-6.50); %Basophils 1.2 % (0.0-1.0); %Lymphocytes 26.8 % (21.0-51.0); %Monocytes 9.3 % (0.0-10.0); %Neutrophils 57.8 % (42.0-75.0); Hemoglobin 13.8 g/dL (12.0-16.0); Mean Corpuscular HGB CONC 33.7 g/dL (32.0-36.0); Mean Corpuscular Hemoglobin 31.7 pg (27.0-31.0); Mean Corpuscular Volume 94.1 fL (78.0-98.0); Mean Platelet Volume 8.2 fL (7.4-10.4); Platelet Count 335 thou/uL (130-400); RBC Distribution Width 12.6 % (11.5-14.5); Red Blood Cell (RBC) Count 4.35 mill/uL (4.20-5.40)
[2020-05-21 05:56] LABS: Anion Gap 14 mmol/L (10-20); BUN (Urea Nitrogen) 27 mg/dL (9.8-20.1); Calc. Creatinine Clearance 110 mL/min (70-130); Carbon Dioxide 25 mmol/L (23-31); Chloride 101 mmol/L (98-107); Glucose 119 mg/dL (83-110); Potassium 3.6 mmol/L (3.5-5.1); Sodium 136 mmol/L (136-145)
[2020-05-21] MEDS: traMADol HCl 50 MG TAB PO PRN ×2 (10:28→17:39)
[2020-05-21] MEDS: Calcium Carbonate 500 MG ChewTAB PO SCH (10:30)
[2020-05-21] MEDS: Cholecalciferol (Vitamin D3) 400 UNITS TAB PO SCH (10:30)
[2020-05-21] MEDS: Aspirin 81 mg Enteric Coated Tablet PO SCH (10:31)
[2020-05-21] MEDS: Cyanocobalamin (Vitamin B-12) 1,000 MCG TAB PO SCH ×2 (10:32→11:05)
[2020-05-21] MEDS: Lisinopril 10 MG TAB PO SCH (10:32)
[2020-05-21] MEDS: Enoxaparin Sodium 40 MG/0.4 ML SYRINGE SC SCH (10:33)
[2020-05-21] MEDS ORDERED: hydrALAZINE 25 MG TAB PO PRN (11:52)
[2020-05-21] MEDS ORDERED: hydrALAZINE 20 MG/ML VIAL SLOW IVP PRN (11:53)
[2020-05-21] MEDS: Lidocaine 5% Patch TD SCH (12:52)
[2020-05-21] MEDS: Polyethylene Glycol 3350 17 GM Packet PO PRN (15:08)
[2020-05-21] MEDS: Atorvastatin Calcium 20 MG TAB PO SCH (20:26)
[2020-05-22] MEDS: Transdermal Patch Removal TOP SCH (02:24)
[2020-05-22] MEDS: Aspirin 81 mg Enteric Coated Tablet PO SCH (08:46)
[2020-05-22] MEDS: Cholecalciferol (Vitamin D3) 400 UNITS TAB PO SCH (08:46)
[2020-05-22] MEDS: Lisinopril 10 MG TAB PO SCH (08:46)
[2020-05-22] MEDS: Enoxaparin Sodium 40 MG/0.4 ML SYRINGE SC SCH (08:47)
[2020-05-22] MEDS: Calcium Carbonate 500 MG ChewTAB PO SCH (08:47)
[2020-05-22] MEDS: Cyanocobalamin (Vitamin B-12) 1,000 MCG TAB PO SCH (08:47)
[2020-05-22] MEDS: Lidocaine 5% Patch TD SCH (11:15)
[2020-05-22] MEDS: Atorvastatin Calcium 20 MG TAB PO SCH (20:52)
[2020-05-23] MEDS: Transdermal Patch Removal TOP SCH (00:56)
[2020-05-23] MEDS: Aspirin 81 mg Enteric Coated Tablet PO SCH (08:24)
[2020-05-23] MEDS: Lisinopril 10 MG TAB PO SCH (08:24)
[2020-05-23] MEDS: Senokot S 8.6-50 MG TAB PO PRN (08:24)
[2020-05-23] MEDS: Cholecalciferol (Vitamin D3) 400 UNITS TAB PO SCH (08:24)
[2020-05-23] MEDS: Calcium Carbonate 500 MG ChewTAB PO SCH (08:24)
[2020-05-23] MEDS: Cyanocobalamin (Vitamin B-12) 1,000 MCG TAB PO SCH (08:24)
[2020-05-23] MEDS: Polyethylene Glycol 3350 17 GM Packet PO PRN (08:25)
[2020-05-23] MEDS: Enoxaparin Sodium 40 MG/0.4 ML SYRINGE SC SCH (08:25)
[2020-05-23] MEDS: Acetaminophen 325 MG TAB PO PRN ×2 (12:13→21:10)
[2020-05-23] MEDS: Lidocaine 5% Patch TD SCH (12:13)
[2020-05-23] MEDS: traMADol HCl 50 MG TAB PO PRN ×2 (12:14→21:11)
[2020-05-23] MEDS: Atorvastatin Calcium 20 MG TAB PO SCH (21:10)
[2020-05-24] MEDS: Transdermal Patch Removal TOP SCH (01:08)
[2020-05-24 05:08] LABS: Anion Gap 12 mmol/L (10-20); BUN (Urea Nitrogen) 29 mg/dL (9.8-20.1); Calc. Creatinine Clearance 88 mL/min (70-130); Calcium 9.8 mg/dL (7.8-10.44); Carbon Dioxide 27 mmol/L (23-31); Chloride 104 mmol/L (98-107); Glucose 112 mg/dL (83-110); Potassium 3.9 mmol/L (3.5-5.1); Sodium 139 mmol/L (136-145)
[2020-05-24 05:53] LABS: #Basophils 0.1 thou/uL (0.0-0.2); #Eosinphils 0.2 thou/uL (0.0-0.7); #Monocytes 0.3 thou/uL (0.11-0.59); #Neutrophils 1.6 thou/uL (1.40-6.50); %Basophils 1.9 % (0.0-1.0); %Lymphocytes 31.6 % (21.0-51.0); %Monocytes 8.4 % (0.0-10.0); %Neutrophils 53.1 % (42.0-75.0); Hemoglobin 13.5 g/dL (12.0-16.0); Mean Corpuscular HGB CONC 32.8 g/dL (32.0-36.0); Mean Corpuscular Volume 94.5 fL (78.0-98.0); Mean Platelet Volume 8.3 fL (7.4-10.4); Platelet Count 307 thou/uL (130-400); Platelet Morphology Comment Appears Adequate; RBC Distribution Width 12.5 % (11.5-14.5); RBC Morphology Normal; Red Blood Cell (RBC) Count 4.36 mill/uL (4.20-5.40); White Blood Cell (WBC) Count 3.1 thou/uL (4.8-10.8)
[2020-05-24] MEDS: Aspirin 81 mg Enteric Coated Tablet PO SCH (09:05)
[2020-05-24] MEDS: traMADol HCl 50 MG TAB PO PRN ×2 (09:08→14:34)
[2020-05-24] MEDS: Cyanocobalamin (Vitamin B-12) 1,000 MCG TAB PO SCH (09:10)
[2020-05-24] MEDS: Lisinopril 10 MG TAB PO SCH (09:13)
[2020-05-24] MEDS: Senokot S 8.6-50 MG TAB PO PRN (09:14)
[2020-05-24] MEDS: Cholecalciferol (Vitamin D3) 400 UNITS TAB PO SCH (09:15)
[2020-05-24] MEDS: Calcium Carbonate 500 MG ChewTAB PO SCH (09:16)
[2020-05-24] MEDS: Enoxaparin Sodium 40 MG/0.4 ML SYRINGE SC SCH (09:17)
[2020-05-24] MEDS: Lidocaine 5% Patch TD SCH (11:28)
[2020-05-24 15:37] VITALS: BP 97/62; TEMP 97.5
== END 2020-05-24 18:33 | disposition swing bed (61) | DRG 91 ==
LOC: ERS 15:37 → ERHOLD 18:05 → 2SE 22:29 → OBSVTOIN 05-15 15:27
PROVIDERS: ADMIT Internal Medicine; ATTEND Internal Medicine
DX: R47.01 Aphasia (principal); G93.41 Metabolic encephalopathy; Z68.41 Body mass index [BMI] 40.0-44.9, adult; E11.42 Type 2 diabetes mellitus with diabetic polyneuropathy; Z20.822 Contact with and (suspected) exposure to COVID-19; E78.5 Hyperlipidemia, unspecified; G89.29 Other chronic pain; N32.81 Overactive bladder; F32.9 Major depressive disorder, single episode, unspecified; D63.1 Anemia in chronic kidney disease; M19.90 Unspecified osteoarthritis, unspecified site; Z96.653 Presence of artificial knee joint, bilateral; I16.0 Hypertensive urgency; E53.8 Deficiency of other specified B group vitamins; E55.9 Vitamin D deficiency, unspecified; F41.9 Anxiety disorder, unspecified; E11.22 Type 2 diabetes mellitus with diabetic chronic kidney disease; R41.3 Other amnesia; N18.9 Chronic kidney disease, unspecified; I12.9 Hypertensive chronic kidney disease with stage 1 through stage 4 chronic kidney disease, or unspecified chronic kidney disease; E66.01 Morbid (severe) obesity due to excess calories; S22.089D Unspecified fracture of T11-T12 vertebra, subsequent encounter for fracture with routine healing; Z91.81 History of falling; Z79.84 Long term (current) use of oral hypoglycemic drugs; Z79.82 Long term (current) use of aspirin; Z79.899 Other long term (current) drug therapy; Z86.73 Personal history of transient ischemic attack (TIA), and cerebral infarction without residual deficits; Z87.440 Personal history of urinary (tract) infections; Z90.49 Acquired absence of other specified parts of digestive tract
CPT/HCPCS: 36415; 36416; 51701; 70450; 71045; 74177; 80048; 80053; 80061; 81003; 81015; 82140; 83605; 83690; 83735; 84100; 84443; 84484; 85025; 86140; 86340; 87086; 87635; 90471; 90662; 90732; 93005; 93306; 93880; 94760; 95712; 95819; 95957; 96374; 96375; 96376; G0008; G0009; G0378; J0360; J1650; J2405; J3475; J7050; Q9967; U0003; U0005

== ENCOUNTER 2023-07-27 09:22 | Inpatient (IN) | payer MEDICARE ==
[2023-07-27] MEDS ORDERED: Ondansetron PF 4 MG/2 ML Vial ONE (09:46)
[2023-07-27] MEDS ORDERED: Cefepime 2 GM VIAL ONE (10:15)
[2023-07-27] MEDS ORDERED: Sodium Chloride 0.9% 100 ML ONE (10:15)
[2023-07-27 10:21] LABS: Actual Bicarbonate (HCO3v) 22.9 mEq/L (22-28); Base Excess -5.8 mEq/L (-2.0 to +3.0); Calcium, Ionized (venous) 1.22 mmol/L (1.16-1.32); Chloride (VBG) 100 mmol/L (98-106); Hematocrit-VBG 37 % (36.0-47.0); Hemoglobin (Hb) 12.5 g/dL (11.7-16.1); Potassium (VBG) 5.04 mmol/L (3.70-5.30); Sodium 136 mmol/L (133-146)
[2023-07-27 10:25] LABS: #Basophils 0.03 10x3/uL (0.0-0.2); %Basophils 0.4 % (0.0-1.0); %Eosinophils 3.5 % (0.0-10.0); %Lymphocytes 12.4 % (21.0-51.0); %Monocytes 5.5 % (0.0-10.0); Hematocrit 35.4 % (36.0-47.0); Hemoglobin 11.5 g/dL (12.0-16.0); Mean Corpuscular HGB CONC 32.5 g/dL (32.0-36.0); Mean Corpuscular Hemoglobin 33.1 pg (27.0-31.0); Mean Platelet Volume 10.9 fL (7.4-10.4); Platelet Count 258 10x3/uL (130-400); RBC Distribution Width 13.8 % (11.5-14.5); Red Blood Cell (RBC) Count 3.47 mill/uL (4.20-5.40)
[2023-07-27 10:42] LABS: ALT (SGPT) 9 U/L (8-55); AST (SGOT) 16 U/L (5-34); Albumin 2.9 g/dL (3.4-4.8); Alkaline Phosphatase 27 U/L (40-110); Anion Gap 18 mmol/L (10-20); BUN (Urea Nitrogen) 77 mg/dL (9.8-20.1); Bilirubin, Total 0.6 mg/dL (0.2-1.2); Calc. Creatinine Clearance 0 mL/min (70-130); Calcium 9.5 mg/dL (7.8-10.44); Carbon Dioxide 23 mmol/L (23-31); Chloride 103 mmol/L (98-107); Estimated GFR 11; Globulin 3.4 g/dL (2.4-3.5); Glucose 112 mg/dL (83-110); Lipase 113 U/L (8-78); Magnesium 1.4 mg/dL (1.6-2.6); Potassium 4.7 mmol/L (3.5-5.1); Protein, Total 6.3 g/dL (5.8-8.1); Sodium 139 mmol/L (136-145)
[2023-07-27] MEDS ORDERED: Ipratropium/Albuterol 3 ML NEB ONE (10:57)
[2023-07-27] MEDS ORDERED: Sodium Bicarb 50 MEQ/50 ML Abboject 8.4% SYRINGE ONE (11:08)
[2023-07-27 11:16] LABS: Bacteria/HPF None Seen HPF (None Seen); Bilirubin Negative (Negative); Blood, Urine 1+ (Negative); CAUTI Indications for Culture Alt mental st,lethar; Clarity Clear (Clear); Glucose, Urine (Dipstick) Normal (Negative); Ketone, Urine Negative (Negative); Leukocyte 75 Leu/uL (Negative); Nitrite Negative (Negative); Protein, Urine (Dipstick) Negative (Neg-Trace); RBC/HPF 0-3 HPF (0-3); Specific Gravity, Urine 1.011 (1.002-1.036); Squamous Epithelial 0-3 HPF (0-3); Urobilinogen Normal mg/dL (Less than 2)
[2023-07-27 11:27] LABS: Urine Culture Reflex No No
[2023-07-27 11:56] LABS: Influenza A by NAA Not Detected (NotDetected); Influenza B by NAA Not Detected (NotDetected); SARS-CoV-2 NAA Rapid Test Not Detected (NotDetected)
[2023-07-27 12:12] LABS: INR-International Normal Ratio 1.1; Prothrombin Time 13.9 sec (12.0-14.7)
[2023-07-27 12:13] LABS: PTT 31.3 sec (22.9-36.1)
[2023-07-27] MEDS ORDERED: Calcium Carbonate 500 MG ChewTAB PO PRN (12:37)
[2023-07-27] MEDS ORDERED: Senokot S 8.6-50 MG TAB PO PRN (12:37)
[2023-07-27] MEDS ORDERED: Dextrose 5% in Water 1,000 ML IV PRN (12:46)
[2023-07-27] MEDS ORDERED: HumaLOG 300 UNITS/3 ML VIAL SC PRN (12:46)
[2023-07-27] MEDS ORDERED: Glucagon 1 MG/ML KIT IM PRN (12:46)
[2023-07-27] MEDS ORDERED: Dextrose 50% Abboject 50 ML SYRINGE SLOW IVP PRN (12:46)
[2023-07-27] MEDS ORDERED: Sodium Chloride 0.9% 1,000 ML IV SCH (12:59)
[2023-07-27] MEDS: Vancomycin (BATCH) 2.5 GM in Premix 1 BAG IVPB SCH (14:29)
[2023-07-27 14:33] VITALS: BMI 42.9
[2023-07-27] MEDS: Sodium Chloride 0.9% 1,000 ML IV SCH (15:06)
[2023-07-27] MEDS: Heparin 5,000 UNITS/ML VIAL SC SCH (15:41)
[2023-07-27] MEDS: LevoFLOXacin 750 mg/D5W 750 MG in Premix 1 BAG IVPB SCH (15:41)
[2023-07-27 17:41] LABS: Actual Bicarbonate (HCO3a) 21.1 mEq/L (22-28); Base Excess (BEa) -4.3 mEq/L (-2.0 to +3.0); Carboxyhemoglobin (COHb) 1.1 gm% (0.0-3.0); Hematocrit-ABG 34 % (36.0-47.0); Hemoglobin (Hb) 11.7 g/dL (12.0-16.0); O2 Tension (PaO2), arterial 60.7 mmHg (> 70.0); Potassium - ABG Lab 4.34 mmol/L (3.70-5.30); pH, Arterial 7.341 (7.35-7.45)
[2023-07-27 17:42] LABS: Puncture Site RRA
[2023-07-27] MEDS ORDERED: Ipratropium/Albuterol 3 ML NEB NEB PRN (17:45)
[2023-07-27] MEDS: Mirtazapine 15 MG TAB PO SCH (20:23)
[2023-07-27] MEDS: Atorvastatin Calcium 20 MG TAB PO SCH (20:23)
[2023-07-27] MEDS: Lactated Ringer's 500 ML IV SCH ×2 (23:03→23:31)
[2023-07-27 23:29] LABS: Actual Bicarbonate (HCO3v) 24.6 mEq/L (22-28); Calcium, Ionized (venous) 1.17 mmol/L (1.16-1.32); Chloride (VBG) 103 mmol/L (98-106); Hematocrit-VBG 34 % (36.0-47.0); Hemoglobin (Hb) 11.5 g/dL (11.7-16.1); Potassium (VBG) 4.56 mmol/L (3.70-5.30); Sodium 138 mmol/L (133-146); pH (venous) 7.213 (7.32-7.43)
[2023-07-27 23:53] LABS: Lactic Acid 0.9 mmol/L (0.5-2.2)
[2023-07-27 23:56] LABS: Anion Gap 17 mmol/L (10-20); BUN (Urea Nitrogen) 72 mg/dL (9.8-20.1); Calc. Creatinine Clearance 30 mL/min (70-130); Calcium 8.9 mg/dL (7.8-10.44); Carbon Dioxide 23 mmol/L (23-31); Chloride 105 mmol/L (98-107); Estimated GFR 16; Glucose 92 mg/dL (83-110); Potassium 4.6 mmol/L (3.5-5.1); Sodium 140 mmol/L (136-145)
[2023-07-28] MEDS: Midodrine HCl 5 MG TAB PO SCH ×4 (03:39→15:16)
[2023-07-28] MEDS: Albumin 25% 25 GM (100 mL) BOT IVPB SCH ×2 (03:39→09:51)
[2023-07-28] MEDS: Lactated Ringer's 500 ML IV SCH ×2 (05:59→13:11)
[2023-07-28 07:03] LABS: #Basophils 0.03 10x3/uL (0.0-0.2); %Basophils 0.6 % (0.0-1.0); %Eosinophils 5.2 % (0.0-10.0); %Lymphocytes 12.4 % (21.0-51.0); %Monocytes 6.5 % (0.0-10.0); %Neutrophils 75.1 % (42.0-75.0); Hematocrit 31.4 % (36.0-47.0); Hemoglobin 9.7 g/dL (12.0-16.0); Mean Corpuscular HGB CONC 30.9 g/dL (32.0-36.0); Mean Corpuscular Hemoglobin 33.3 pg (27.0-31.0); Mean Corpuscular Volume 107.9 fL (78.0-98.0); Mean Platelet Volume 10.6 fL (7.4-10.4); Platelet Count 205 10x3/uL (130-400); RBC Distribution Width 13.7 % (11.5-14.5); Red Blood Cell (RBC) Count 2.91 mill/uL (4.20-5.40)
[2023-07-28 07:18] LABS: Lactic Acid 0.6 mmol/L (0.5-2.2)
[2023-07-28 07:21] LABS: ALT (SGPT) 8 U/L (8-55); AST (SGOT) 15 U/L (5-34); Albumin 2.7 g/dL (3.4-4.8); Alkaline Phosphatase 20 U/L (40-110); Anion Gap 16 mmol/L (10-20); BUN (Urea Nitrogen) 67 mg/dL (9.8-20.1); Bilirubin, Total 0.5 mg/dL (0.2-1.2); Calc. Creatinine Clearance 32 mL/min (70-130); Calcium 8.6 mg/dL (7.8-10.44); Carbon Dioxide 20 mmol/L (23-31); Chloride 109 mmol/L (98-107); Estimated GFR 18; Globulin 2.8 g/dL (2.4-3.5); Glucose 100 mg/dL (83-110); Magnesium 1.1 mg/dL (1.6-2.6); Potassium 4.6 mmol/L (3.5-5.1); Protein, Total 5.5 g/dL (5.8-8.1); Sodium 140 mmol/L (136-145)
[2023-07-28] MEDS: Aspirin 81 mg Enteric Coated Tablet PO SCH (08:09)
[2023-07-28] MEDS: Fenofibrate Nanocrystallized 145 MG TAB PO SCH (08:09)
[2023-07-28] MEDS: Sertraline 100 MG TAB PO SCH (08:10)
[2023-07-28] MEDS: Sodium Chloride 0.9% 500 ML IV SCH (09:52)
[2023-07-28] MEDS: Lactated Ringer's 1,000 ML IV SCH (11:38)
[2023-07-28 12:57] LABS: ALT (SGPT) Less than 5 U/L (8-55); AST (SGOT) 15 U/L (5-34); Albumin 2.8 g/dL (3.4-4.8); Alkaline Phosphatase 17 U/L (40-110); Anion Gap 17 mmol/L (10-20); BUN (Urea Nitrogen) 64 mg/dL (9.8-20.1); Bilirubin, Total 0.5 mg/dL (0.2-1.2); Calc. Creatinine Clearance 36 mL/min (70-130); Calcium 8.7 mg/dL (7.8-10.44); Carbon Dioxide 18 mmol/L (23-31); Chloride 109 mmol/L (98-107); Estimated GFR 20; Globulin 2.5 g/dL (2.4-3.5); Glucose 94 mg/dL (83-110); Potassium 4.7 mmol/L (3.5-5.1); Protein, Total 5.3 g/dL (5.8-8.1); Sodium 139 mmol/L (136-145)
[2023-07-28] MEDS: cefTRIAXone\\ROCEPHIN 1 GM in Sodium Chloride 0.9% 100 ML IVPB SCH (13:10)
[2023-07-28] MEDS: Magnesium Sulfate In Water 4 GM in Premix 1 BAG IVPB SCH (15:21)
[2023-07-28] MEDS: Acetaminophen 325 MG TAB PO PRN (22:01)
[2023-07-29 01:19] LABS: Actual Bicarbonate (HCO3v) 21.6 mEq/L (22-28); Base Excess -5.2 mEq/L (-2.0 to +3.0); Chloride (VBG) 105 mmol/L (98-106); Hematocrit-VBG 27 % (36.0-47.0); Hemoglobin (Hb) 9.3 g/dL (11.7-16.1); Sodium 139 mmol/L (133-146); pH (venous) 7.263 (7.32-7.43)
[2023-07-29 03:41] LABS: #Basophils Less than 0.03 10x3/uL (0.0-0.2); %Basophils 0.4 % (0.0-1.0); %Lymphocytes 11.3 % (21.0-51.0); %Monocytes 5.6 % (0.0-10.0); %Neutrophils 77.3 % (42.0-75.0); Hemoglobin 8.2 g/dL (12.0-16.0); Mean Corpuscular HGB CONC 31.5 g/dL (32.0-36.0); Mean Corpuscular Hemoglobin 32.7 pg (27.0-31.0); Mean Corpuscular Volume 103.6 fL (78.0-98.0); Platelet Count 186 10x3/uL (130-400); RBC Distribution Width 13.9 % (11.5-14.5); Red Blood Cell (RBC) Count 2.51 mill/uL (4.20-5.40)
[2023-07-29 04:05] LABS: Anion Gap 16 mmol/L (10-20); BUN (Urea Nitrogen) 57 mg/dL (9.8-20.1); Calc. Creatinine Clearance 40 mL/min (70-130); Calcium 8.9 mg/dL (7.8-10.44); Carbon Dioxide 22 mmol/L (23-31); Chloride 109 mmol/L (98-107); Estimated GFR 23; Glucose 103 mg/dL (83-110); Magnesium 1.9 mg/dL (1.6-2.6); Potassium 4.5 mmol/L (3.5-5.1); Sodium 142 mmol/L (136-145)
[2023-07-29] MEDS ORDERED: LevoFLOXacin 500 mg/D5W 500 MG in Premix 1 BAG IVPB SCH (16:00)
[2023-07-29] MEDS: QUEtiapine 25 MG TAB PO SCH (19:45)
[2023-07-30 04:53] LABS: #Basophils Less than 0.03 10x3/uL (0.0-0.2); %Basophils 0.2 % (0.0-1.0); %Eosinophils 2.6 % (0.0-10.0); %Lymphocytes 8.9 % (21.0-51.0); %Monocytes 4.7 % (0.0-10.0); Hematocrit 31.9 % (36.0-47.0); Mean Corpuscular HGB CONC 31.3 g/dL (32.0-36.0); Mean Corpuscular Hemoglobin 32.7 pg (27.0-31.0); Mean Corpuscular Volume 104.2 fL (78.0-98.0); Mean Platelet Volume 11.1 fL (7.4-10.4); Platelet Count 259 10x3/uL (130-400); RBC Distribution Width 14.2 % (11.5-14.5); Red Blood Cell (RBC) Count 3.06 mill/uL (4.20-5.40)
[2023-07-30 05:13] LABS: Anion Gap 20 mmol/L (10-20); BUN (Urea Nitrogen) 42 mg/dL (9.8-20.1); Calc. Creatinine Clearance 63 mL/min (70-130); Carbon Dioxide 21 mmol/L (23-31); Chloride 109 mmol/L (98-107); Estimated GFR 39; Glucose 130 mg/dL (83-110); Magnesium 1.6 mg/dL (1.6-2.6); Potassium 4.9 mmol/L (3.5-5.1); Sodium 145 mmol/L (136-145)
[2023-07-30] MEDS: Lorazepam 2 MG/ML VIAL SLOW IVP PRN (10:06)
[2023-07-30] MEDS ORDERED: Electrolyte Replacement Protocol FS PRN (13:00)
[2023-07-30] MEDS: Magnesium 2 GM/50 ML(in water) 2 GM in Premix 1 BAG IVPB SCH (14:16)
[2023-07-31 04:59] LABS: #Basophils 0.03 10x3/uL (0.0-0.2); %Basophils 0.4 % (0.0-1.0); %Eosinophils 0.5 % (0.0-10.0); %Lymphocytes 7.5 % (21.0-51.0); %Monocytes 5.2 % (0.0-10.0); %Neutrophils 85.8 % (42.0-75.0); Hemoglobin 9.1 g/dL (12.0-16.0); Mean Corpuscular HGB CONC 32.5 g/dL (32.0-36.0); Mean Corpuscular Hemoglobin 33.2 pg (27.0-31.0); Mean Corpuscular Volume 102.2 fL (78.0-98.0); Mean Platelet Volume 11.9 fL (7.4-10.4); Platelet Count 241 10x3/uL (130-400); RBC Distribution Width 14.3 % (11.5-14.5); Red Blood Cell (RBC) Count 2.74 mill/uL (4.20-5.40)
[2023-07-31 05:16] LABS: Anion Gap 15 mmol/L (10-20); BUN (Urea Nitrogen) 31 mg/dL (9.8-20.1); Calc. Creatinine Clearance 69 mL/min (70-130); Calcium 10.2 mg/dL (7.8-10.44); Carbon Dioxide 23 mmol/L (23-31); Chloride 112 mmol/L (98-107); Estimated GFR 44; Glucose 155 mg/dL (83-110); Magnesium 1.8 mg/dL (1.6-2.6); Potassium 4.3 mmol/L (3.5-5.1); Sodium 146 mmol/L (136-145)
[2023-07-31] MEDS: Magnesium 2 GM/50 ML(in water) 2 GM in Premix 1 BAG IVPB SCH (08:09)
[2023-07-31] MEDS: Pantoprazole 40 MG VIAL IVP SCH (23:32)
[2023-08-01 07:02] LABS: #Basophils 0.03 10x3/uL (0.0-0.2); %Basophils 0.4 % (0.0-1.0); %Eosinophils 2.6 % (0.0-10.0); %Lymphocytes 8.8 % (21.0-51.0); %Monocytes 5.8 % (0.0-10.0); %Neutrophils 81.7 % (42.0-75.0); Hematocrit 29.9 % (36.0-47.0); Hemoglobin 9.6 g/dL (12.0-16.0); Mean Corpuscular HGB CONC 32.1 g/dL (32.0-36.0); Mean Corpuscular Hemoglobin 32.3 pg (27.0-31.0); Mean Corpuscular Volume 100.7 fL (78.0-98.0); Mean Platelet Volume 11.9 fL (7.4-10.4); Platelet Count 270 10x3/uL (130-400); RBC Distribution Width 14.6 % (11.5-14.5); Red Blood Cell (RBC) Count 2.97 mill/uL (4.20-5.40)
[2023-08-01] MEDS: HumaLOG 300 UNITS/3 ML VIAL SC PRN (07:14)
[2023-08-01 07:19] LABS: Anion Gap 15 mmol/L (10-20); BUN (Urea Nitrogen) 30 mg/dL (9.8-20.1); Calc. Creatinine Clearance 86 mL/min (70-130); Carbon Dioxide 25 mmol/L (23-31); Chloride 112 mmol/L (98-107); Estimated GFR 55; Glucose 174 mg/dL (83-110); Potassium 3.9 mmol/L (3.5-5.1); Sodium 148 mmol/L (136-145)
[2023-08-01] MEDS: Sodium Chloride 0.45% 1,000 ML IV SCH (08:42)
[2023-08-01 17:16] LABS: Methylmalonic Acid 249 nmol/L (0-378)
[2023-08-02] MEDS: fentaNYL 50 mcg/mL 1 mL Vial ONE (06:27)
[2023-08-02 10:28] LABS: Anion Gap 13 mmol/L (10-20); BUN (Urea Nitrogen) 27 mg/dL (9.8-20.1); Calc. Creatinine Clearance 97 mL/min (70-130); Carbon Dioxide 26 mmol/L (23-31); Chloride 112 mmol/L (98-107); Estimated GFR 64; Glucose 158 mg/dL (83-110); Potassium 4.2 mmol/L (3.5-5.1); Sodium 147 mmol/L (136-145)
[2023-08-02] MEDS ORDERED: Labetalol HCl 100 MG/20 ML VIAL SLOW IVP PRN (13:13)
[2023-08-02] MEDS: Ondansetron PF 4 MG/2 ML Vial IVP PRN (14:09)
[2023-08-02] MEDS: dilTIAZem 25 MG/5 ML VIAL SLOW IVP SCH ×2 (14:36→19:00)
[2023-08-02] MEDS: dilTIAZem 125 MG in Sodium Chloride 0.9% 100 ML IVPB SCH (15:12)
[2023-08-02] MEDS: dilTIAZem 25 MG/5 ML VIAL ONE (15:19)
[2023-08-02 15:34] LABS: Free T4 (Free Thyroxine) 0.86 ng/dL (0.70-1.48); Thyroid Stimulating Hormone 2.5406 uIU/mL (0.35-4.94)
[2023-08-02] MEDS: Lactated Ringer's 500 ML IV SCH (18:20)
[2023-08-03 06:07] LABS: #Basophils Less than 0.03 10x3/uL (0.0-0.2); %Basophils 0.4 % (0.0-1.0); %Eosinophils 3.7 % (0.0-10.0); %Lymphocytes 14.4 % (21.0-51.0); %Monocytes 8.6 % (0.0-10.0); %Neutrophils 71.1 % (42.0-75.0); Hematocrit 29.9 % (36.0-47.0); Mean Corpuscular HGB CONC 30.1 g/dL (32.0-36.0); Mean Corpuscular Hemoglobin 32.6 pg (27.0-31.0); Mean Corpuscular Volume 108.3 fL (78.0-98.0); Mean Platelet Volume 10.7 fL (7.4-10.4); Platelet Count 356 10x3/uL (130-400); RBC Distribution Width 14.7 % (11.5-14.5); Red Blood Cell (RBC) Count 2.76 mill/uL (4.20-5.40)
[2023-08-03 06:19] LABS: Anion Gap 14 mmol/L (10-20); BUN (Urea Nitrogen) 25 mg/dL (9.8-20.1); Calc. Creatinine Clearance 83 mL/min (70-130); Calcium 9.3 mg/dL (7.8-10.44); Carbon Dioxide 26 mmol/L (23-31); Chloride 110 mmol/L (98-107); Estimated GFR 53; Glucose 161 mg/dL (83-110); Potassium 4.4 mmol/L (3.5-5.1); Sodium 146 mmol/L (136-145)
[2023-08-03] MEDS: Metoclopramide HCl 10 MG (2 mL) VIAL IVP SCH (06:39)
[2023-08-03] MEDS: Albumin 25% 25 GM (100 mL) BOT IVPB SCH (08:43)
[2023-08-03] MEDS: Sodium Chloride 0.9% 500 ML IV SCH (08:44)
[2023-08-03 08:49] LABS: Actual Bicarbonate (HCO3a) 27.1 mEq/L (22-28); Base Excess (BEa) -0.6 mEq/L (-2.0 to +3.0); Calcium, Ionized (arterial) 1.25 mmol/L (1.12-1.30); Carboxyhemoglobin (COHb) 0.6 gm% (0.0-3.0); Hematocrit-ABG 27 % (36.0-47.0); Hemoglobin (Hb) 9.1 g/dL (12.0-16.0); O2 Tension (PaO2), arterial 82.3 mmHg (> 70.0); Potassium - ABG Lab 4.23 mmol/L (3.70-5.30); pH, Arterial 7.253 (7.35-7.45)
[2023-08-03 08:51] LABS: CO2 Tension 62.8 mmHg (35.0-45.0); Puncture Site RRA
[2023-08-03] MEDS ORDERED: Vancomycin 1 GM in Sodium Chloride 0.9% 250 ML 250 ML IVPB SCH (09:00)
[2023-08-03] MEDS: Vancomycin (BATCH) 1.75 GM in Premix 1 BAG IVPB SCH (09:32)
[2023-08-03] MEDS: Cefepime 1 GM in Sodium Chloride 0.9% 100 ML IVPB SCH (09:32)
[2023-08-03] MEDS: metroNIDAZOLE 500 MG in Premix 1 BAG IVPB SCH (14:43)
[2023-08-03] MEDS ORDERED: Sterile Water 10 ML VIAL FS PRN (22:30)
[2023-08-03] MEDS: OLANZapine 10 MG VIAL IM SCH (22:47)
[2023-08-03] MEDS: Lorazepam 2 MG/ML VIAL SLOW IVP SCH (23:52)
[2023-08-04 04:52] LABS: #Basophils 0.03 10x3/uL (0.0-0.2); %Basophils 0.5 % (0.0-1.0); %Eosinophils 2.1 % (0.0-10.0); %Lymphocytes 13.2 % (21.0-51.0); %Monocytes 8.3 % (0.0-10.0); %Neutrophils 74.8 % (42.0-75.0); Hemoglobin 7.5 g/dL (12.0-16.0); Mean Corpuscular Hemoglobin 32.8 pg (27.0-31.0); Mean Corpuscular Volume 109.2 fL (78.0-98.0); Mean Platelet Volume 11.7 fL (7.4-10.4); Platelet Count 323 10x3/uL (130-400); RBC Distribution Width 14.5 % (11.5-14.5); Red Blood Cell (RBC) Count 2.29 mill/uL (4.20-5.40)
[2023-08-04 05:13] LABS: Anion Gap 12 mmol/L (10-20); BUN (Urea Nitrogen) 22 mg/dL (9.8-20.1); Calc. Creatinine Clearance 106 mL/min (70-130); Calcium 9.2 mg/dL (7.8-10.44); Carbon Dioxide 25 mmol/L (23-31); Chloride 111 mmol/L (98-107); Estimated GFR 68; Glucose 124 mg/dL (83-110); Sodium 144 mmol/L (136-145); Vancomycin, Random 11.3 ug/mL (See Comment)
[2023-08-04] MEDS ORDERED: VANCOMYCIN IVPB PRN (06:42)
[2023-08-05 05:03] LABS: #Basophils 0.03 10x3/uL (0.0-0.2); %Basophils 0.4 % (0.0-1.0); %Eosinophils 2.8 % (0.0-10.0); %Lymphocytes 11.2 % (21.0-51.0); %Monocytes 7.6 % (0.0-10.0); %Neutrophils 76.8 % (42.0-75.0); Hematocrit 27.5 % (36.0-47.0); Hemoglobin 8.3 g/dL (12.0-16.0); Mean Corpuscular HGB CONC 30.2 g/dL (32.0-36.0); Mean Corpuscular Hemoglobin 33.1 pg (27.0-31.0); Mean Corpuscular Volume 109.6 fL (78.0-98.0); Mean Platelet Volume 10.9 fL (7.4-10.4); Platelet Count 376 10x3/uL (130-400); RBC Distribution Width 14.6 % (11.5-14.5); Red Blood Cell (RBC) Count 2.51 mill/uL (4.20-5.40)
[2023-08-05 05:25] LABS: Vancomycin, Random 17.2 ug/mL (See Comment)
[2023-08-05 05:29] LABS: ALT (SGPT) Less than 5 U/L (8-55); AST (SGOT) 11 U/L (5-34); Albumin 3.1 g/dL (3.4-4.8); Alkaline Phosphatase 21 U/L (40-110); Anion Gap 13 mmol/L (10-20); BUN (Urea Nitrogen) 19 mg/dL (9.8-20.1); Bilirubin, Total 0.4 mg/dL (0.2-1.2); Calc. Creatinine Clearance 93 mL/min (70-130); Calcium 9.7 mg/dL (7.8-10.44); Carbon Dioxide 26 mmol/L (23-31); Chloride 110 mmol/L (98-107); Estimated GFR 58; Globulin 2.7 g/dL (2.4-3.5); Glucose 119 mg/dL (83-110); Magnesium 1.3 mg/dL (1.6-2.6); Phosphorus 2.9 mg/dL (2.3-4.7); Potassium 4.4 mmol/L (3.5-5.1); Protein, Total 5.8 g/dL (5.8-8.1); Sodium 145 mmol/L (136-145)
[2023-08-05] MEDS ORDERED: Magnesium 2 GM/50 ML(in water) 2 GM in Premix 1 BAG IVPB SCH (08:00)
[2023-08-05] MEDS: Magnesium Sulfate In Water 4 GM in Premix 1 BAG IVPB SCH (09:21)
[2023-08-05] MEDS ORDERED: Vancomycin (BATCH) 1.5 GM in Premix 1 BAG IVPB SCH (11:00)
[2023-08-05] MEDS: Furosemide 40 MG (4 mL) VIAL SLOW IVP SCH (11:44)
[2023-08-06 05:10] LABS: #Basophils 0.04 10x3/uL (0.0-0.2); %Basophils 0.7 % (0.0-1.0); %Eosinophils 2.6 % (0.0-10.0); %Lymphocytes 12.9 % (21.0-51.0); %Monocytes 6.1 % (0.0-10.0); %Neutrophils 76.7 % (42.0-75.0); Hematocrit 24.6 % (36.0-47.0); Hemoglobin 7.5 g/dL (12.0-16.0); Mean Corpuscular HGB CONC 30.5 g/dL (32.0-36.0); Mean Corpuscular Hemoglobin 31.6 pg (27.0-31.0); Mean Corpuscular Volume 103.8 fL (78.0-98.0); Mean Platelet Volume 11.3 fL (7.4-10.4); Platelet Count 360 10x3/uL (130-400); RBC Distribution Width 14.3 % (11.5-14.5); Red Blood Cell (RBC) Count 2.37 mill/uL (4.20-5.40)
[2023-08-06 05:34] LABS: ALT (SGPT) 5 U/L (8-55); AST (SGOT) 11 U/L (5-34); Albumin 2.7 g/dL (3.4-4.8); Alkaline Phosphatase 20 U/L (40-110); Anion Gap 14 mmol/L (10-20); BUN (Urea Nitrogen) 18 mg/dL (9.8-20.1); Bilirubin, Total 0.4 mg/dL (0.2-1.2); Calc. Creatinine Clearance 96 mL/min (70-130); Calcium 9.2 mg/dL (7.8-10.44); Carbon Dioxide 27 mmol/L (23-31); Chloride 107 mmol/L (98-107); Estimated GFR 60; Globulin 2.6 g/dL (2.4-3.5); Glucose 139 mg/dL (83-110); Magnesium 1.5 mg/dL (1.6-2.6); Phosphorus 2.7 mg/dL (2.3-4.7); Potassium 3.7 mmol/L (3.5-5.1); Protein, Total 5.3 g/dL (5.8-8.1); Sodium 144 mmol/L (136-145)
[2023-08-06] MEDS: Magnesium 2 GM/50 ML(in water) 2 GM in Premix 1 BAG IVPB SCH (08:18)
[2023-08-06] MEDS: Furosemide 40 MG (4 mL) VIAL SLOW IVP SCH (08:19)
[2023-08-06] MEDS: QUEtiapine 25 MG TAB PO SCH (20:44)
[2023-08-07 04:34] LABS: #Basophils 0.04 10x3/uL (0.0-0.2); %Basophils 0.6 % (0.0-1.0); %Eosinophils 3.5 % (0.0-10.0); %Lymphocytes 12.5 % (21.0-51.0); %Monocytes 8.4 % (0.0-10.0); Hematocrit 27.9 % (36.0-47.0); Hemoglobin 8.6 g/dL (12.0-16.0); Mean Corpuscular HGB CONC 30.8 g/dL (32.0-36.0); Mean Corpuscular Hemoglobin 32.6 pg (27.0-31.0); Mean Corpuscular Volume 105.7 fL (78.0-98.0); Mean Platelet Volume 11.4 fL (7.4-10.4); Platelet Count 428 10x3/uL (130-400); Red Blood Cell (RBC) Count 2.64 mill/uL (4.20-5.40)
[2023-08-07 04:56] LABS: Anion Gap 16 mmol/L (10-20); BUN (Urea Nitrogen) 17 mg/dL (9.8-20.1); Calc. Creatinine Clearance 105 mL/min (70-130); Carbon Dioxide 30 mmol/L (23-31); Chloride 102 mmol/L (98-107); Estimated GFR 69; Glucose 131 mg/dL (83-110); Magnesium 1.3 mg/dL (1.6-2.6); Potassium 3.5 mmol/L (3.5-5.1); Sodium 144 mmol/L (136-145)
[2023-08-07] MEDS: Magnesium Sulfate In Water 4 GM in Premix 1 BAG IVPB SCH (08:51)
[2023-08-07] MEDS: Potassium Chloride 20 MEQ TAB PO SCH (08:52)
[2023-08-07] MEDS: hydrALAZINE 20 MG/ML VIAL SLOW IVP PRN (10:29)
[2023-08-08 04:50] LABS: #Basophils 0.04 10x3/uL (0.0-0.2); %Basophils 0.7 % (0.0-1.0); %Eosinophils 2.5 % (0.0-10.0); %Lymphocytes 19.2 % (21.0-51.0); %Monocytes 8.3 % (0.0-10.0); %Neutrophils 68.1 % (42.0-75.0); Hematocrit 28.5 % (36.0-47.0); Hemoglobin 8.9 g/dL (12.0-16.0); Mean Corpuscular HGB CONC 31.2 g/dL (32.0-36.0); Mean Corpuscular Hemoglobin 32.1 pg (27.0-31.0); Mean Corpuscular Volume 102.9 fL (78.0-98.0); Mean Platelet Volume 10.1 fL (7.4-10.4); Platelet Count 476 10x3/uL (130-400); Red Blood Cell (RBC) Count 2.77 mill/uL (4.20-5.40)
[2023-08-08 05:08] LABS: Anion Gap 12 mmol/L (10-20); BUN (Urea Nitrogen) 15 mg/dL (9.8-20.1); Calc. Creatinine Clearance 108 mL/min (70-130); Calcium 10.4 mg/dL (7.8-10.44); Carbon Dioxide 34 mmol/L (23-31); Chloride 99 mmol/L (98-107); Estimated GFR 73; Glucose 123 mg/dL (83-110); Magnesium 1.5 mg/dL (1.6-2.6); Potassium 3.4 mmol/L (3.5-5.1); Sodium 142 mmol/L (136-145)
[2023-08-08] MEDS: Potassium Chloride 20 MEQ TAB PO SCH (08:55)
[2023-08-08] MEDS: QUEtiapine 25 MG TAB PO SCH ×2 (08:56→15:31)
[2023-08-08] MEDS: Magnesium 2 GM/50 ML(in water) 2 GM in Premix 1 BAG IVPB SCH (08:57)
[2023-08-09 05:37] LABS: #Basophils 0.05 10x3/uL (0.0-0.2); %Eosinophils 2.5 % (0.0-10.0); %Lymphocytes 18.5 % (21.0-51.0); %Monocytes 10.5 % (0.0-10.0); Hematocrit 25.2 % (36.0-47.0); Hemoglobin 8.1 g/dL (12.0-16.0); Mean Corpuscular HGB CONC 32.1 g/dL (32.0-36.0); Mean Corpuscular Hemoglobin 32.1 pg (27.0-31.0); Mean Platelet Volume 11.6 fL (7.4-10.4); Platelet Count 453 10x3/uL (130-400); RBC Distribution Width 14.1 % (11.5-14.5); Red Blood Cell (RBC) Count 2.52 mill/uL (4.20-5.40)
[2023-08-09 05:57] LABS: Anion Gap 12 mmol/L (10-20); BUN (Urea Nitrogen) 12 mg/dL (9.8-20.1); Calc. Creatinine Clearance 122 mL/min (70-130); Calcium 9.6 mg/dL (7.8-10.44); Carbon Dioxide 34 mmol/L (23-31); Chloride 99 mmol/L (98-107); Estimated GFR 84; Glucose 106 mg/dL (83-110); Potassium 3.7 mmol/L (3.5-5.1); Sodium 141 mmol/L (136-145)
[2023-08-09] MEDS: Furosemide 40 MG TAB PO SCH (11:59)
[2023-08-09] MEDS: QUEtiapine 25 MG TAB PO SCH (12:00)
[2023-08-09] MEDS: Metoprolol Tartrate 5 MG (5 mL) VIAL IVP SCH (15:35)
[2023-08-09] MEDS: dilTIAZem CD 120 MG CAP PO SCH ×2 (15:35→19:44)
[2023-08-09] MEDS: Metoprolol Tartrate 5 MG (5 mL) VIAL IVP PRN (20:13)
[2023-08-10 06:14] LABS: #Basophils 0.07 10x3/uL (0.0-0.2); %Basophils 1.1 % (0.0-1.0); %Eosinophils 2.2 % (0.0-10.0); %Lymphocytes 16.2 % (21.0-51.0); %Monocytes 11.2 % (0.0-10.0); %Neutrophils 67.1 % (42.0-75.0); Mean Corpuscular Hemoglobin 31.3 pg (27.0-31.0); Mean Corpuscular Volume 100.7 fL (78.0-98.0); Mean Platelet Volume 10.7 fL (7.4-10.4); Platelet Count 488 10x3/uL (130-400); RBC Distribution Width 14.4 % (11.5-14.5); Red Blood Cell (RBC) Count 2.88 mill/uL (4.20-5.40)
[2023-08-10 06:31] LABS: Anion Gap 14 mmol/L (10-20); BUN (Urea Nitrogen) 9 mg/dL (9.8-20.1); Calc. Creatinine Clearance 112 mL/min (70-130); Calcium 10.1 mg/dL (7.8-10.44); Carbon Dioxide 34 mmol/L (23-31); Chloride 99 mmol/L (98-107); Estimated GFR 77; Glucose 110 mg/dL (83-110); Potassium 3.6 mmol/L (3.5-5.1); Sodium 143 mmol/L (136-145)
[2023-08-10] MEDS: Pantoprazole 40 MG VIAL IVP SCH (10:42)
[2023-08-10] MEDS: dilTIAZem CD 120 MG CAP PO SCH (10:42)
[2023-08-11 06:02] LABS: #Basophils 0.06 10x3/uL (0.0-0.2); %Basophils 0.8 % (0.0-1.0); %Eosinophils 2.6 % (0.0-10.0); %Lymphocytes 14.5 % (21.0-51.0); %Monocytes 9.5 % (0.0-10.0); %Neutrophils 70.8 % (42.0-75.0); Hematocrit 27.3 % (36.0-47.0); Hemoglobin 8.5 g/dL (12.0-16.0); Mean Corpuscular HGB CONC 31.1 g/dL (32.0-36.0); Mean Corpuscular Hemoglobin 32.2 pg (27.0-31.0); Mean Corpuscular Volume 103.4 fL (78.0-98.0); Mean Platelet Volume 11.2 fL (7.4-10.4); Platelet Count 416 10x3/uL (130-400); RBC Distribution Width 14.6 % (11.5-14.5); Red Blood Cell (RBC) Count 2.64 mill/uL (4.20-5.40)
[2023-08-11 06:15] LABS: ALT (SGPT) 7 U/L (8-55); AST (SGOT) 22 U/L (5-34); Albumin 2.8 g/dL (3.4-4.8); Alkaline Phosphatase 27 U/L (40-110); Anion Gap 17 mmol/L (10-20); BUN (Urea Nitrogen) 8 mg/dL (9.8-20.1); Bilirubin, Total 0.4 mg/dL (0.2-1.2); Calc. Creatinine Clearance 108 mL/min (70-130); Calcium 9.8 mg/dL (7.8-10.44); Carbon Dioxide 33 mmol/L (23-31); Chloride 97 mmol/L (98-107); Estimated GFR 74; Globulin 2.8 g/dL (2.4-3.5); Glucose 134 mg/dL (83-110); Potassium 3.4 mmol/L (3.5-5.1); Protein, Total 5.6 g/dL (5.8-8.1); Sodium 144 mmol/L (136-145)
[2023-08-11] MEDS: Magnesium Sulfate In Water 4 GM in Premix 1 BAG IVPB SCH (08:08)
[2023-08-11] MEDS: Potassium Chloride 20 MEQ TAB PO SCH (08:08)
[2023-08-12 05:43] LABS: #Basophils 0.07 10x3/uL (0.0-0.2); %Eosinophils 2.9 % (0.0-10.0); %Neutrophils 70.6 % (42.0-75.0); Hematocrit 29.4 % (36.0-47.0); Hemoglobin 9.2 g/dL (12.0-16.0); Mean Corpuscular HGB CONC 31.3 g/dL (32.0-36.0); Mean Corpuscular Volume 105.4 fL (78.0-98.0); Mean Platelet Volume 10.7 fL (7.4-10.4); Platelet Count 354 10x3/uL (130-400); RBC Distribution Width 14.5 % (11.5-14.5); Red Blood Cell (RBC) Count 2.79 mill/uL (4.20-5.40)
[2023-08-12 08:38] LABS: Anion Gap 17 mmol/L (10-20); BUN (Urea Nitrogen) 8 mg/dL (9.8-20.1); Calc. Creatinine Clearance 105 mL/min (70-130); Calcium 10.2 mg/dL (7.8-10.44); Carbon Dioxide 33 mmol/L (23-31); Chloride 96 mmol/L (98-107); Estimated GFR 72; Glucose 125 mg/dL (83-110); Magnesium 1.4 mg/dL (1.6-2.6); Sodium 142 mmol/L (136-145)
[2023-08-12] MEDS: Magnesium Sulfate In Water 4 GM in Premix 1 BAG IVPB SCH (09:26)
[2023-08-13 08:07] LABS: Anion Gap 12 mmol/L (10-20); BUN (Urea Nitrogen) 10 mg/dL (9.8-20.1); Calc. Creatinine Clearance 101 mL/min (70-130); Calcium 9.9 mg/dL (7.8-10.44); Carbon Dioxide 38 mmol/L (23-31); Chloride 95 mmol/L (98-107); Estimated GFR 69; Glucose 116 mg/dL (83-110); Potassium 3.4 mmol/L (3.5-5.1); Sodium 142 mmol/L (136-145)
[2023-08-13] MEDS: Potassium Chloride 20 MEQ TAB PO SCH (09:29)
[2023-08-13 12:00] VITALS: BMI 43.6
[2023-08-13 19:10] VITALS: BP 119/66; TEMP 98.4
== END 2023-08-13 20:41 | DRG 682 ==
LOC: SUATTDRO 09:22 → ERS 09:22 → IMCU/EMU 13:59 → T4-A 08-11 14:20
PROVIDERS: ADMIT Internal Medicine; ATTEND Internal Medicine
DX: N17.9 Acute kidney failure, unspecified (principal); G93.41 Metabolic encephalopathy; J96.01 Acute respiratory failure with hypoxia; R57.1 Hypovolemic shock; I50.33 Acute on chronic diastolic (congestive) heart failure; I13.0 Hypertensive heart and chronic kidney disease with heart failure and stage 1 through stage 4 chronic kidney disease, or unspecified chronic kidney disease; E87.0 Hyperosmolality and hypernatremia; D61.818 Other pancytopenia; Z68.41 Body mass index [BMI] 40.0-44.9, adult; Z66 Do not resuscitate; G89.29 Other chronic pain; E78.5 Hyperlipidemia, unspecified; E11.22 Type 2 diabetes mellitus with diabetic chronic kidney disease; E66.01 Morbid (severe) obesity due to excess calories; F32.A Depression, unspecified; E86.0 Dehydration; I95.9 Hypotension, unspecified; R00.0 Tachycardia, unspecified; D63.1 Anemia in chronic kidney disease; Z79.4 Long term (current) use of insulin; Z86.73 Personal history of transient ischemic attack (TIA), and cerebral infarction without residual deficits; Z79.82 Long term (current) use of aspirin; Z79.899 Other long term (current) drug therapy
CPT/HCPCS: 36415; 36416; 36600; 51701; 70450; 71045; 71250; 74018; 80048; 80053; 80202; 81001; 82140; 82607; 82805; 83605; 83690; 83735; 83880; 83921; 84100; 84145; 84439; 84443; 85025; 85610; 85730; 87040; 87086; 93005; 93010; 94640; 94660; 94760; 96365; 96366; 96367; 96375; C9113; J0360; J0692; J0696; J1644; J1815; J1940; J1956; J2060; J2405; J2765; J3370; J3475; J3490; J7030; J7050; J7120; J7620; P9047